=== PATIENT | male | born 1940 | race Caucasian/White ===

== ENCOUNTER 2018-04-10 16:44 | Inpatient (IN) | payer MEDICARE ==
[~2018-04-10] VITALS: Ht 167.6 cm; Wt 70.1 kg
--- NOTE | 2018-04-10 17:14 | EKG ---
[facility] [address] [place] [address] Test Date: 2018-04-10 Test Time: 16:47:41 Pat Name: JS HOLMAN Department: Room: Gender: M Line Fisher: : 1940 Requested By: ABDULAZIZ LOPEZ Order Number: [id number] Reading MD: Measurements Intervals [place] Rate: 86 P: 52 [place]: 176 QRS: -8 QRSD: 94 T: 62 QT: 332 QTc: 400 Interpretive Statements SINUS RHYTHM LEFTWARD AXIS QRS(T) CONTOUR ABNORMALITY CONSISTENT WITH INFERIOR INFARCT PROBABLY OLD ABNORMAL ECG RI6.01 No previous ECG available for comparison
[2018-04-10] MEDS ORDERED: NITROGLYCERIN SUBLINGUAL 0.4 MG BOTTLE OF 25. SL PRN (17:15)
--- NOTE | 2018-04-10 18:25 | PHYS DOC ---
Past Medical History Past Medical History: High Cholesterol, Hypertension Past Surgical History: Cholecystectomy, Other Additional Past Surgical Histo: AAA repair Alcohol Use: None Drug Use: None Adult General Chief Complaint Chief Complaint: CHEST PAIN HPI HPI 77-year-old male presents to ER via EMS for complaints of sudden onset of midsternal chest pain at 4:30 PM. Patient reports he was eating fried chicken and potato salad when pain started. Patient states the pain was 10 out of 10. EMS administered aspirin 324 mg and 1 nitroglycerin sublingual. Patient reports his pain has improved and currently rates at 2 out of 10. Patient denies any radiation of pain into his extremities, back, or neck. Patient denies any nausea or vomiting, shortness of air, or abd pain. Review of Systems Review of Systems Constitutional: Denies fever or chills [] Eyes: Denies change in visual acuity, redness, or eye pain [] HENT: Denies nasal congestion or sore throat [] Respiratory: Denies cough or shortness of breath [] Cardiovascular: Reports mid sternal chest pain without radiation GI: Denies abdominal pain, nausea, vomiting, bloody stools or diarrhea [] : Denies dysuria or hematuria [] Musculoskeletal: Denies back pain or joint pain [] Integument: Denies rash or skin lesions [] Neurologic: Denies headache, focal weakness or sensory changes [] Psych: Reports anxiety All other systems were reviewed and found to be within normal limits, except as documented in this note. Current Medications Current Medications Current Medications Medications (Trade) Dose Ordered Sig/Mariel Start Time Stop Time Status Last Admin Dose Admin Nitroglycerin (Nitrostat) 0.4 mg PRN Q5MIN PRN 04/10/18 17:15 Allergies Allergies Allergies Coded Allergies Type Severity Reaction Last Updated Verified No Known Drug Allergies 01/01/15 No Physical Exam Physical Exam Constitutional: Well developed, well nourished, mild distress on initial exam patient anxious and tearful, non-toxic appearance. [] HENT: Normocephalic, atraumatic, bilateral external ears normal, oropharynx moist, no oral exudates, nose normal. [] Eyes: PERRLA, EOMI, conjunctiva normal, no discharge. [] Neck: Normal range of motion, no tenderness, supple, no stridor. [] Cardiovascular: Heart rate regular rhythm, no murmur [] Lungs & Thorax: Bilateral breath sounds clear to auscultation. Respirations equal and nonlabored. No chest wall tenderness Abdomen: Bowel sounds normal, soft-no distention or rigidity, no tenderness, no masses, no pulsatile masses. [] Skin: Warm, dry, no erythema, no rash. [] Back: No tenderness, no CVA tenderness. [] Extremities: No tenderness, no cyanosis, no clubbing, ROM intact, no edema. [] Neurologic: Alert and oriented X 3, normal motor function, normal sensory function, no focal deficits noted. [] Psychologic: Affect normal, judgement normal, mood normal. [] Current Patient Data Vital Signs Vital Signs Date Time Temp Pulse Resp B/P (MAP) Pulse Ox O2 Delivery O2 Flow Rate FiO2 04/10/18 19:00 54 23 119/71 (87) 95 Room Air 04/10/18 16:58 98.6 98.6 Lab Values Laboratory Tests Test 04/10/18 18:35 White Blood Count 7.2 x10^3/uL (4.0-11.0) Red Blood Count 4.32 x10^6/uL (4.30-5.70) Hemoglobin 14.0 g/dL (13.0-17.5) Hematocrit 40.5 % (39.0-53.0) Mean Corpuscular Volume 94 fL (79-100) Mean Corpuscular Hemoglobin 33 pg (25-35) Mean Corpuscular Hemoglobin Concent 35 g/dL (31-37) Red Cell Distribution Width 14.5 % (11.5-14.5) Platelet Count 287 x10^3/uL (140-400) Neutrophils (%) (Auto) 54 % (31-73) Lymphocytes (%) (Auto) 28 % (24-48) Monocytes (%) (Auto) 11 % (0-9) H Eosinophils (%) (Auto) 8 % (0-3) H Basophils (%) (Auto) 0 % (0-3) Neutrophils # (Auto) 3.9 x10^3uL (1.8-7.7) Lymphocytes # (Auto) 2.0 x10^3/uL (1.0-4.8) Monocytes # (Auto) 0.8 x10^3/uL (0.0-1.1) Eosinophils # (Auto) 0.5 x10^3/uL (0.0-0.7) Basophils # (Auto) 0.0 x10^3/uL (0.0-0.2) Sodium Level 138 mmol/L (136-145) Potassium Level 4.3 mmol/L (3.5-5.1) Chloride Level 103 mmol/L (98-107) Carbon Dioxide Level 24 mmol/L (21-32) Anion Gap 11 (6-14) Blood Urea Nitrogen 21 mg/dL (8-26) Creatinine 1.3 mg/dL (0.7-1.3) Estimated GFR (Cockcroft-Gault) 53.7 BUN/Creatinine Ratio 16 (6-20) Glucose Level 101 mg/dL (70-99) H Calcium Level 9.5 mg/dL (8.5-10.1) Magnesium Level 1.9 mg/dL (1.8-2.4) Total Bilirubin 0.2 mg/dL (0.2-1.0) Aspartate Amino Transferase (AST) 14 U/L (15-37) L Alanine Aminotransferase (ALT) 14 U/L (16-63) L Alkaline Phosphatase 115 U/L (46-116) Troponin I Quantitative < 0.017 ng/mL (0.000-0.055) RY-Gkv-Y-Type Natriuretic Peptide 106 pg/mL (0-449) Total Protein 7.8 g/dL (6.4-8.2) Albumin 3.4 g/dL (3.4-5.0) Albumin/Globulin Ratio 0.8 (1.0-1.7) L Lipase 532 U/L (73-393) H Laboratory Tests 04/10/18 18:35 Laboratory Tests 04/10/18 18:35 EKG EKG EKG obtained 04/10/18 at [address] Shirley Sinus rhythm Leftward axis Rate 86 No STEMI Radiology/Procedures Radiology/Procedures [] Course & Med Decision Making Course & Med Decision Making Pertinent Labs and Imaging studies reviewed. (See chart for details) 1810: RN reported when she went to admin. nitro pt had no CP so nitro not given. On re-evaluation pt reports his CP has subsided he is denying any complaints. Test results were discussed along EKG with no acute ST elevation/STEMI and troponin was <0.017. Discussed admit plans to complete serial cardiac enzymes to further r/o ACS. Pt had received aspirin 324mg BELL MAKER along with 1 nitro SL. Pt has remained stable while in ER. Pt and his are both agreeable with admit plan. Will speak with hospitalist and discuss pt's case. 1939: Spoke with Dr. Garcia, hospitalist and discussed pt's case/admit plan. Discussed pt's case with Dr. Shirley. Pt's MACE score 5. Dragon Disclaimer Dragon Disclaimer This electronic medical record was generated, in whole or in part, using a voice recognition dictation system. Departure Departure Impression: Primary Impression: Chest pain Disposition: ADMITTED INPATIENT Admitting Physician: Xie. Borjas Condition: STABLE Referrals: NESTOR SALAMANCA (PCP) ABDULAZIZ LOPEZ APRN Apr 10, 2018 18:25
[2018-04-10 18:47] LABS: BASO % 0 % (0-3); EOS # 0.5 x10^3/uL (0.0-0.7); EOS % 8 % (0-3); HEMATOCRIT 40.5 % (39.0-53.0); LYMPH % 28 % (24-48); MEAN CORPUSCULAR HEMOGLOBIN 33 pg (25-35); MEAN CORPUSCULAR HGB CONC 35 g/dL (31-37); MEAN CORPUSCULAR VOLUME 94 fL (79-100); MONO # 0.8 x10^3/uL (0.0-1.1); MONO % 11 % (0-9); NEUT # 3.9 x10^3uL (1.8-7.7); NEUT % 54 % (31-73); PLATELET COUNT 287 x10^3/uL (140-400); RED BLOOD COUNT 4.32 x10^6/uL (4.30-5.70); RED CELL DISTRIBUTION WIDTH 14.5 % (11.5-14.5); WHITE BLOOD COUNT 7.2 x10^3/uL (4.0-11.0)
[2018-04-10 19:03] LABS: CALCIUM 9.5 mg/dL (8.5-10.1); CREATININE 1.3 mg/dL (0.7-1.3); GFR 53.7; POTASSIUM 4.3 mmol/L (3.5-5.1)
[2018-04-10 19:09] LABS: ALBUMIN 3.4 g/dL (3.4-5.0); ALBUMIN/GLOBULIN RATIO 0.8 (1.0-1.7); MAGNESIUM 1.9 mg/dL (1.8-2.4); TOTAL BILIRUBIN 0.2 mg/dL (0.2-1.0); TOTAL PROTEIN 7.8 g/dL (6.4-8.2)
[2018-04-10] MEDS ORDERED: GEMF600T8 PO (19:37)
[2018-04-10] MEDS ORDERED: METF500T16 PO (19:38)
[2018-04-10] MEDS ORDERED: LISI10TA2 PO (19:40)
[2018-04-10 21:15] VITALS: BP 152/77
[2018-04-10 21:30] VITALS: BP 133/59
[2018-04-10 21:45] VITALS: BP 121/61
[2018-04-10 22:00] VITALS: BP 136/64
--- NOTE | 2018-04-10 22:17 | RAD ---
Single view chest dated 04/10/2018. No comparison available. CLINICAL INDICATION: Asymmetric chest pain. Shortness of breath. FINDINGS: Single upright portable exam performed. Heart and mediastinal contours are within normal limits. Lungs are clear without focal consolidation. Vascular interstitium within normal limits. No pleural effusion or pneumothorax. IMPRESSION: No acute radiographic abnormality. Electronically signed by: Craig Askew MD (04/10/2018 10:13 PM) [facility]
[2018-04-11 00:01] VITALS: BP 136/74
[2018-04-11 02:06] LABS: BASO # 0.1 x10^3/uL (0.0-0.2); BASO % 2 % (0-3); EOS # 0.6 x10^3/uL (0.0-0.7); EOS % 9 % (0-3); HEMATOCRIT 39.2 % (39.0-53.0); HEMOGLOBIN 13.5 g/dL (13.0-17.5); LYMPH # 2.5 x10^3/uL (1.0-4.8); LYMPH % 39 % (24-48); MEAN CORPUSCULAR HEMOGLOBIN 33 pg (25-35); MEAN CORPUSCULAR HGB CONC 35 g/dL (31-37); MEAN CORPUSCULAR VOLUME 95 fL (79-100); MONO # 0.7 x10^3/uL (0.0-1.1); MONO % 11 % (0-9); NEUT # 2.5 x10^3uL (1.8-7.7); NEUT % 39 % (31-73); PLATELET COUNT 264 x10^3/uL (140-400); RED BLOOD COUNT 4.11 x10^6/uL (4.30-5.70); RED CELL DISTRIBUTION WIDTH 14.2 % (11.5-14.5); WHITE BLOOD COUNT 6.4 x10^3/uL (4.0-11.0)
[2018-04-11 02:25] LABS: CALCIUM 9.4 mg/dL (8.5-10.1); CREATININE 1.3 mg/dL (0.7-1.3); GFR 53.7; POTASSIUM 4.4 mmol/L (3.5-5.1)
[2018-04-11 02:29] LABS: CHOLESTEROL/HDL RATIO 7.7
[2018-04-11 04:00] VITALS: BP 138/63
[2018-04-11 08:00] VITALS: BP 162/92
--- NOTE | 2018-04-11 10:33 | PDOC2 ---
DAPHNE VIDAL TIN [employer] FEEDER 04/11/18 1033: CARDIAC CONSULT DATE OF CONSULT Date of Consult DATE: 04/11/18 TIME: 10:06 REASON FOR CONSULT Reason for Consult: Chest pain REFERRING PHYSICIAN Referring Physician: Radha SOURCE Source: Chart review, Patient HISTORY OF PRESENT ILLNESS HISTORY OF PRESENT ILLNESS This is a pleasant 77 yo male admitted for complains of chest pain. This occurred while he was eating yesterday morning. This felt like he was getting punched in his chest. This is nonradiating. NO associated nausea but he did feel like he could not take a deep breath with this pain. No palpitations, falls or any recent injury. From his recollection he was never told of any heart disease in the past or VTE. He did however had an aneurysm extending from his chest to his abdomen which was openly surgically repaired 5 yrs ago. Denies any abdominal pain. No exertional CP or dyspnea. He does not follow up with cardiology and has not followed up with any vascular surgery in a while. Denies any dizziness or passing out. PAST MEDICAL HISTORY Cardiovascular: HTN, Hyperlipidemia Pulmonary: No pertinent hx CENTRAL NERVOUS SYSTEM: Other (No pertinent history) GI: GERD Hepatobiliary: No pertinent hx Psych: No pertinent hx Musculoskeletal: Osteoarthritis Rheumatologic: No pertinent hx Infectious disease: No pertinent hx ENT: Other (periodontal disease) Renal/: No pertinent hx Endocrine: Diabetes (?) Dermatology: No pertinent hx PAST SURGICAL HISTORY Past Surgical History: Appendectomy, Other (thoracic and abdominal aneurysm repair) FAMILY HISTORY Family History noncontributory to CV SOCIAL HISTORY Smoke: 1 pack per day ALCOHOL: none Drugs: None Lives: with Family ALLERGIES ALLERGIES: Coded Allergies: No Known Drug Allergies (Unverified , 01/01/15) ROS Review of System 14 point ROS evaluated with pertinent positives noted per HPI PHYSICAL EXAM General: Alert, Oriented X3, Cooperative, No acute distress HEENT: Atraumatic, Mucous membr. moist/pink Lungs: Clear to auscultation, Normal air movement Heart: Regular rate (SR no ectopies), Other (distnat heart sounds) Abdomen: Soft, No tenderness Extremities: No cyanosis, No edema Skin: No breakdown, No significant lesion Neuro: Normal speech, Sensation intact Psych/Mental Status: Mental status NL, Mood NL MUSCULOSKELETAL: Osteoarthritic changes both hands VITALS VITALS Vital Signs Date Time Temp Pulse Resp B/P (MAP) Pulse Ox O2 Delivery O2 Flow Rate FiO2 04/11/18 08:00 98.9 61 18 162/92 (115) 97 Room Air 98.9 LABS Lab: Laboratory Tests Test 04/10/18 18:35 04/10/18 23:15 04/11/18 01:50 White Blood Count 7.2 x10^3/uL (4.0-11.0) 6.4 x10^3/uL (4.0-11.0) Red Blood Count 4.32 x10^6/uL (4.30-5.70) 4.11 x10^6/uL (4.30-5.70) Hemoglobin 14.0 g/dL (13.0-17.5) 13.5 g/dL (13.0-17.5) Hematocrit 40.5 % (39.0-53.0) 39.2 % (39.0-53.0) Mean Corpuscular Volume 94 fL (79-100) 95 fL (79-100) Mean Corpuscular Hemoglobin 33 pg (25-35) 33 pg (25-35) Mean Corpuscular Hemoglobin Concent 35 g/dL (31-37) 35 g/dL (31-37) Red Cell Distribution Width 14.5 % (11.5-14.5) 14.2 % (11.5-14.5) Platelet Count 287 x10^3/uL (140-400) 264 x10^3/uL (140-400) Neutrophils (%) (Auto) 54 % (31-73) 39 % (31-73) Lymphocytes (%) (Auto) 28 % (24-48) 39 % (24-48) Monocytes (%) (Auto) 11 % (0-9) 11 % (0-9) Eosinophils (%) (Auto) 8 % (0-3) 9 % (0-3) Basophils (%) (Auto) 0 % (0-3) 2 % (0-3) Neutrophils # (Auto) 3.9 x10^3uL (1.8-7.7) 2.5 x10^3uL (1.8-7.7) Lymphocytes # (Auto) 2.0 x10^3/uL (1.0-4.8) 2.5 x10^3/uL (1.0-4.8) Monocytes # (Auto) 0.8 x10^3/uL (0.0-1.1) 0.7 x10^3/uL (0.0-1.1) Eosinophils # (Auto) 0.5 x10^3/uL (0.0-0.7) 0.6 x10^3/uL (0.0-0.7) Basophils # (Auto) 0.0 x10^3/uL (0.0-0.2) 0.1 x10^3/uL (0.0-0.2) Sodium Level 138 mmol/L (136-145) 140 mmol/L (136-145) Potassium Level 4.3 mmol/L (3.5-5.1) 4.4 mmol/L (3.5-5.1) Chloride Level 103 mmol/L (98-107) 103 mmol/L (98-107) Carbon Dioxide Level 24 mmol/L (21-32) 25 mmol/L (21-32) Anion Gap 11 (6-14) 12 (6-14) Blood Urea Nitrogen 21 mg/dL (8-26) 22 mg/dL (8-26) Creatinine 1.3 mg/dL (0.7-1.3) 1.3 mg/dL (0.7-1.3) Estimated GFR (Cockcroft-Gault) 53.7 53.7 BUN/Creatinine Ratio 16 (6-20) Glucose Level 101 mg/dL (70-99) 91 mg/dL (70-99) Calcium Level 9.5 mg/dL (8.5-10.1) 9.4 mg/dL (8.5-10.1) Magnesium Level 1.9 mg/dL (1.8-2.4) Total Bilirubin 0.2 mg/dL (0.2-1.0) Aspartate Amino Transf (AST/SGOT) 14 U/L (15-37) Alanine Aminotransferase (ALT/SGPT) 14 U/L (16-63) Alkaline Phosphatase 115 U/L (46-116) Troponin I Quantitative < 0.017 ng/mL (0.000-0.055) < 0.017 ng/mL (0.000-0.055) < 0.017 ng/mL (0.000-0.055) EN-Gqv-I-Type Natriuretic Peptide 106 pg/mL (0-449) Total Protein 7.8 g/dL (6.4-8.2) Albumin 3.4 g/dL (3.4-5.0) Albumin/Globulin Ratio 0.8 (1.0-1.7) Lipase 532 U/L (73-393) Triglycerides Level 163 mg/dL (0-150) Cholesterol Level 239 mg/dL (0-200) LDL Cholesterol, Calculated 175 mg/dL (0-100) VLDL Cholesterol, Calculated 33 mg/dL (0-40) Non-HDL Cholesterol Calculated 208 mg/dL (0-129) HDL Cholesterol 31 mg/dL (40-60) Cholesterol/HDL Ratio 7.7 ASSESSMENT/PLAN ASSESSMENT/PLAN 1. Atypical CP: doubt cardiac. Likely GI. 2. Elevated lipase: GI consulted 3. HX of thoracic/abdominal aneurysm with open repair: 5 yrs ago per per pt. 4. HTN: controlled 5. HLP: not controlled 6. Tobaccoism: 60 pk yr 7. Dysmetabolic syndrome vs DM2?: on home metformin 8. Asymptomatic SB: meand HR 60 with episodes in the 40-50s Recommendations 1. TTE and note aorta and baseline EF and WM. 2. Intensify statin, DC home gemfibrozil. Resume home lisinopril. ASA 3. Smoking cessation. 4. Further follow up imaging in regards to aneurysm per PCP 5. Given his risk factors he will need cardiology follow up as an outpt. DENISHA GALVIN MD 04/11/182038: CARDIAC CONSULT ASSESSMENT/PLAN ASSESSMENT/PLAN Patient seen and examined. Agree with CODING AND REIMBURSEMENT SPECIALIST's assessment and plan. CP with atypical features and most probably GI etiology MO ruled out 2D echo showed normal LVF without WMA Plan ischemic work up as outpatient Thank you for your consultation DAPHNE VIDAL APRN Apr 11, 2018 10:33 DENISHA GALVIN MD Apr 11, 2018 20:39
--- NOTE | 2018-04-11 11:18 | PDOC2 ---
GI CONSULT Reason For Consult: Elevated lipase HPI: HPI: Friendly 77 y/o male admitted through the ER last night. Reports right-sided chest "squeezing" while eating dinner (fried chicken, potato salad, and beets) last evening. Associated w/ SOA. Similar pain has occurred several times - always while eating. He didn't want to worry his so didn't mention it in the past. Labs noted lipase 537, GI asked to see for this reason. No abd imaging. Pain has resolved, he is tolerating PO and asking for more coffee. Per RN, possible discharge later today, cardiology consult pending. Denies reflux/heartburn, dysphagia, n/v, abd pain, diarrhea, constipation, hematochezia, melena, change in appetite, or weight loss. No previous EGD. Had a colonoscopy (reportedly normal) about 6-7 years ago. No GB, liver, or pancreas history. Smokes. Drank alcohol heavily until he got 55 years years ago - since then, thinks he's been drunk about 4 times and eventually stopped drinking completely. No NSAID use. PMH: PMH: HTN, HLD, DM, AAA repair FH: Family History: Cancer (father - unknown kind) Social History: Smoke: 1 pack per day ALCOHOL: none Drugs: None ROS: GEN: Denies fevers, chills, sweats HEENT: Denies blurred vision, sore throat CV: +chest pain RESP: +shortness of air GI: Per HPI : Denies hematuria, dysuria ENDO: Denies weight changes NEURO: Denies confusion, dizziness MSK: Denies weakness, joint pain/swelling SKIN: Denies jaundice, pruritus Vitals: Vitals: Vital Signs Date Time Temp Pulse Resp B/P (MAP) Pulse Ox O2 Delivery O2 Flow Rate FiO2 04/11/18 08:00 98.9 61 18 162/92 (115) 97 Room Air 98.9 Labs: Labs: Laboratory Tests Test 04/10/18 18:35 04/10/18 23:15 04/11/18 01:50 White Blood Count 7.2 x10^3/uL (4.0-11.0) 6.4 x10^3/uL (4.0-11.0) Red Blood Count 4.32 x10^6/uL (4.30-5.70) 4.11 x10^6/uL (4.30-5.70) Hemoglobin 14.0 g/dL (13.0-17.5) 13.5 g/dL (13.0-17.5) Hematocrit 40.5 % (39.0-53.0) 39.2 % (39.0-53.0) Mean Corpuscular Volume 94 fL (79-100) 95 fL (79-100) Mean Corpuscular Hemoglobin 33 pg (25-35) 33 pg (25-35) Mean Corpuscular Hemoglobin Concent 35 g/dL (31-37) 35 g/dL (31-37) Red Cell Distribution Width 14.5 % (11.5-14.5) 14.2 % (11.5-14.5) Platelet Count 287 x10^3/uL (140-400) 264 x10^3/uL (140-400) Neutrophils (%) (Auto) 54 % (31-73) 39 % (31-73) Lymphocytes (%) (Auto) 28 % (24-48) 39 % (24-48) Monocytes (%) (Auto) 11 % (0-9) 11 % (0-9) Eosinophils (%) (Auto) 8 % (0-3) 9 % (0-3) Basophils (%) (Auto) 0 % (0-3) 2 % (0-3) Neutrophils # (Auto) 3.9 x10^3uL (1.8-7.7) 2.5 x10^3uL (1.8-7.7) Lymphocytes # (Auto) 2.0 x10^3/uL (1.0-4.8) 2.5 x10^3/uL (1.0-4.8) Monocytes # (Auto) 0.8 x10^3/uL (0.0-1.1) 0.7 x10^3/uL (0.0-1.1) Eosinophils # (Auto) 0.5 x10^3/uL (0.0-0.7) 0.6 x10^3/uL (0.0-0.7) Basophils # (Auto) 0.0 x10^3/uL (0.0-0.2) 0.1 x10^3/uL (0.0-0.2) Sodium Level 138 mmol/L (136-145) 140 mmol/L (136-145) Potassium Level 4.3 mmol/L (3.5-5.1) 4.4 mmol/L (3.5-5.1) Chloride Level 103 mmol/L (98-107) 103 mmol/L (98-107) Carbon Dioxide Level 24 mmol/L (21-32) 25 mmol/L (21-32) Anion Gap 11 (6-14) 12 (6-14) Blood Urea Nitrogen 21 mg/dL (8-26) 22 mg/dL (8-26) Creatinine 1.3 mg/dL (0.7-1.3) 1.3 mg/dL (0.7-1.3) Estimated GFR (Cockcroft-Gault) 53.7 53.7 BUN/Creatinine Ratio 16 (6-20) Glucose Level 101 mg/dL (70-99) 91 mg/dL (70-99) Calcium Level 9.5 mg/dL (8.5-10.1) 9.4 mg/dL (8.5-10.1) Magnesium Level 1.9 mg/dL (1.8-2.4) Total Bilirubin 0.2 mg/dL (0.2-1.0) Aspartate Amino Transf (AST/SGOT) 14 U/L (15-37) Alanine Aminotransferase (ALT/SGPT) 14 U/L (16-63) Alkaline Phosphatase 115 U/L (46-116) Troponin I Quantitative < 0.017 ng/mL (0.000-0.055) < 0.017 ng/mL (0.000-0.055) < 0.017 ng/mL (0.000-0.055) YS-Qyv-T-Type Natriuretic Peptide 106 pg/mL (0-449) Total Protein 7.8 g/dL (6.4-8.2) Albumin 3.4 g/dL (3.4-5.0) Albumin/Globulin Ratio 0.8 (1.0-1.7) Lipase 532 U/L (73-393) Triglycerides Level 163 mg/dL (0-150) Cholesterol Level 239 mg/dL (0-200) LDL Cholesterol, Calculated 175 mg/dL (0-100) VLDL Cholesterol, Calculated 33 mg/dL (0-40) Non-HDL Cholesterol Calculated 208 mg/dL (0-129) HDL Cholesterol 31 mg/dL (40-60) Cholesterol/HDL Ratio 7.7 Allergies: Coded Allergies: No Known Drug Allergies (Unverified , 01/01/15) Imaging: Imaging: CXR IMPRESSION: No acute radiographic abnormality. PE: GEN: NAD, up to chair HEENT: Atraumatic, PERRL, poor dentition LUNGS: CTAB HEART: RRR ABD: NABS, S/ND/NT EXTREMITY: No edema SKIN: No rashes, no jaundice NEURO/PSYCH: A & O 3 A/P: A/P: Recurrent right-sided chest pain - "squeezing," occurs while eating, associated w/ SOA Mildly elevated lipase CRC screen - reports colonoscopy 6-7 years ago -- Cardiology consult pending. Will review w/ Dr. Delarosa re: need for further evaluation as inpt or outpt - ? US ?CT ?EGD STELLA YIP Apr 11, 2018 11:18
--- NOTE | 2018-04-11 11:19 | HP ---
ADMIT DATE: 04/10/2018 CHIEF COMPLAINT: Chest pain. HISTORY OF PRESENT ILLNESS: The patient is a pleasant 77-year-old male who has a history of AAA and thoracic aneurysm repair. He presented to the ER with chest pain last night. It was rated as 7/10. He had associated nausea. He was eating fried chicken and potato salad when it started. It got to as high as 10/10. He took an aspirin that did not seem to help. He took a nitro that helped a little. He describes it as agonizing, moving made it worse. I discussed the case with ER physician. We admitted the patient. We are consulting Cardiology. We are also checking his aneurysm repair. PAST MEDICAL HISTORY: AAA repair, thoracic aneurysm repair, hypertension, hyperlipidemia, cholecystectomy. Diabetes. ALLERGIES: None. FAMILY HISTORY: Hypertension. SOCIAL HISTORY: Does not drink, smoke or take drugs. He is retired. MEDICATIONS: Reviewed. He is on 3 including gemfibrozil, lisinopril, metformin. REVIEW OF SYSTEMS: GENERAL: No history of weight change, weakness or fevers. SKIN: No bruising, hair changes or rashes. EYES: No blurred, double or loss of vision. NOSE AND THROAT: No history of nosebleeds, hoarseness or sore throat. HEART: He complains of chest pain, although it is improving.. LUNGS: Denies cough, hemoptysis, wheezing or shortness of breath. GASTROINTESTINAL: Denies changes in appetite, nausea, vomiting, diarrhea or constipation. GENITOURINARY: No history of frequency, urgency, hesitancy or nocturia. NEUROLOGIC: Denies history of numbness, tingling, tremor or weakness. PSYCHIATRIC: No history of panic, anxiety or depression. ENDOCRINE: No history of heat or cold intolerance, polyuria or polydipsia. EXTREMITIES: Denies muscle weakness, joint pain, pain on walking or stiffness. PHYSICAL EXAMINATION:. VITAL SIGNS: Temperature afebrile, pulse 55, respirations 18, blood pressure 138/63. GENERAL: He is alert, cooperative, up in the chair in the ICU. HEART: Normal S1, S2. LUNGS: Clear to auscultation. ABDOMEN: Soft, positive bowel sounds, no organomegaly. EXTREMITIES: Trace edema. Pedal pulses are intact. ENDOCRINE: No thyromegaly. LYMPHATICS: No cervical nodes. HEMATOPOIETIC: No bruising. GENITOURINARY: Normal structure of the penis and scrotum. PSYCHIATRIC: He is stable. NEUROLOGIC: Moving all extremities. NECK: No JVD. LABORATORY DATA: White count 7, hemoglobin 14, platelets 287. Electrolytes are normal. Troponin is 0. Triglycerides are high at 163. Chest x-ray normal. ASSESSMENT AND PLAN: Chest pain, rule out coronary artery disease. Given the patient's history of abdominal aortic aneurysm, we need to check that. I discussed with Cardiology. We are going to do some extra imaging. Continue his home meds, cardiac monitoring, serial enzymes, serial EKGs, p.r.n. Zofran, p.r.n. morphine. PROGNOSIS: Guarded. IVAN CARPENTER DO DR: TRACI/violet JOB#: [id number] / [id number]
[2018-04-11 12:00] VITALS: BP 161/84
[2018-04-11] MEDS: LISINOPRIL 10 MG TABLET PO SCH (12:38)
--- NOTE | 2018-04-11 14:31 | CARD ---
MR#: [id number] Date of Study: 04/11/2018 Ordering Physician: DAPHNE VIDAL, Referring Physician: CECILIA LASSITER Tech: Greer Killian RDCS APPROVED REPORT EXAM: Two-dimensional and M-mode echocardiogram with Doppler and color Doppler. Other Information Quality : AverageHR: 60bpm Rhythm : NSR INDICATION Chest Pain 2D DIMENSIONS RVDd3.0 (2.9-3.5cm)Left Atrium(2D)3.5 (1.6-4.0cm) IVSd1.2 (0.7-1.1cm)Aortic Root(2D)3.3 (2.0-3.7cm) LVDd4.3 (3.9-5.9cm)LVOT Diameter2.1 (1.8-2.4cm) PWd0.8 (0.7-1.1cm)LVDs3.1 (2.5-4.0cm) FS (%) 27.7 %SV44.9 ml LVEF(%)54.1 (>50%) Aortic Valve AoV Peak Cole.177.6cm/sAoV VTI38.5cm AO Peak GR.12.6mmHgLVOT VTI 22.92cm AO Mean GR.7mmHgAVA (VMAX)1.98cm2 BEATRIZ (VTI)2.00cm2 Mitral Valve MV E Uatjqhrg72.5cm/sMV DECEL TOCN294ki MV A Eoxejjpa71.7cm/sE/A Ratio0.8 MV A [id number] TDI Lateral E' P. V8.37cm/sMedial E' P. V9.07cm/s E/Lateral E'7.2E/Medial E'6.7 Tricuspid Valve TR P. Dcgjbwht345iv/sRAP [id number] TR Peak Gr.90ydNjLTQT74vjHu LEFT VENTRICLE The left ventricle is normal size. Proximal septal thickening is noted. The Ejection Fraction is 55%. The left ventricular systolic function is normal and the ejection fraction is within normal range. T here is normal LV segmental wall motion. Transmitral Doppler flow pattern is Grade I-abnormal relaxat ion pattern. RIGHT VENTRICLE The right ventricle is normal size. There is normal right ventricular wall thickness. The right ventr icular systolic function is normal. ATRIA The left atrium size is normal. The right atrium size is normal. The interatrial septum is intact wit h no evidence for an atrial septal defect or patent foramen ovale as noted on 2-D or Doppler imaging. AORTIC VALVE The aortic valve is moderately calcified with restricted leaflet motion. The aortic valve is trileafl et. Doppler and Color Flow revealed no significant aortic regurgitation. There is no significant aort ic valvular stenosis. MITRAL VALVE The mitral valve is normal in structure and function. There is no evidence of mitral valve prolapse. There is no mitral valve stenosis. Doppler and Color Flow revealed no mitral valve regurgitation note d. TRICUSPID VALVE The tricuspid valve is normal in structure and function. Doppler and Color Flow revealed trace tricus pid regurgitation. The PA pressure was estimated at 24 mmHg. There is no tricuspid valve prolapse or vegetation. There is no tricuspid valve stenosis. PULMONIC VALVE Pulmonic valve not well visualized. GREAT VESSELS The aortic root is normal in size. The ascending aorta is normal in size. The IVC is normal in size a nd collapses >50% with inspiration. PERICARDIAL EFFUSION There is no evidence of significant pericardial effusion. Critical Notification Critical Value: No <Conclusion> The Ejection Fraction is 55%. The left ventricular systolic function is normal and the ejection fract ion is within normal range. There is normal LV segmental wall motion. Signed by : Arnaldo Azul, Electronically Approved : 04/11/2018 14:29:55
[2018-04-11 16:00] VITALS: BP 157/80
[2018-04-11 20:00] VITALS: BP 121/58
[2018-04-11] MEDS: ATORVASTATIN CALCIUM 40 MG TABLET. PO SCH (20:39)
[2018-04-12] VITALS (10 sets, daily range): BP systolic 102–143; BP diastolic 50–81
[2018-04-12 05:41] LABS: BASO # 0.1 x10^3/uL (0.0-0.2); BASO % 1 % (0-3); EOS # 0.7 x10^3/uL (0.0-0.7); EOS % 9 % (0-3); LYMPH # 1.9 x10^3/uL (1.0-4.8); LYMPH % 26 % (24-48); MEAN CORPUSCULAR HEMOGLOBIN 32 pg (25-35); MEAN CORPUSCULAR HGB CONC 34 g/dL (31-37); MEAN CORPUSCULAR VOLUME 94 fL (79-100); MONO # 0.7 x10^3/uL (0.0-1.1); MONO % 10 % (0-9); NEUT # 3.9 x10^3uL (1.8-7.7); NEUT % 54 % (31-73); PLATELET COUNT 290 x10^3/uL (140-400); RED BLOOD COUNT 4.35 x10^6/uL (4.30-5.70); RED CELL DISTRIBUTION WIDTH 14.4 % (11.5-14.5); WHITE BLOOD COUNT 7.2 x10^3/uL (4.0-11.0)
[2018-04-12 06:04] LABS: CALCIUM 9.3 mg/dL (8.5-10.1); CREATININE 1.2 mg/dL (0.7-1.3); GFR 58.9; POTASSIUM 4.1 mmol/L (3.5-5.1)
[2018-04-12] MEDS ORDERED: LIDOCAINE 1% PF 2 ML VIAL. ID PRN ×2 (07:00→08:00)
[2018-04-12] MEDS ORDERED: PROCHLORPERAZINE 10 MG/2 ML VIAL. IV PRN (07:00)
[2018-04-12] MEDS ORDERED: IV RINGERS,LACTATED 1000ML 1,000 ML IV SCH (07:00)
[2018-04-12] MEDS ORDERED: ONDANSETRON PF 4 MG/2 ML VIAL. IV PRN (07:00)
[2018-04-12] MEDS ORDERED: fentaNYL PF VIAL 100 MCG/2 ML VIAL IV PRN ×4 (07:00→08:00)
[2018-04-12] MEDS ORDERED: MORPHINE SULFATE 2 MG/ML VIAL. IV PRN (07:00)
[2018-04-12] MEDS ORDERED: HYDROmorphone 2 MG/ML VIAL IV PRN (07:00)
[2018-04-12] MEDS: IV RINGERS,LACTATED 1000ML 1,000 ML IV SCH ×2 (07:55→15:55)
[2018-04-12] MEDS: ASPIRIN ENTERIC COATED 81 MG TABLET.DR. PO SCH (08:00)
[2018-04-12] MEDS ORDERED: MIDAZOLAM HCL/PF 2 MG/2 ML VIAL. IV PRN (08:00)
[2018-04-12] MEDS ORDERED: PROPOFOL 20 ML IV ONE (09:12)
--- NOTE | 2018-04-12 10:07 | PDOC4 ---
PROCEDURE Procedure EGD/biopsies Indication: dyspepsia/NCCP Meds: per anesthesia Findings: E--Friable tumor anterior wall from 30-35cm c/w malignancy. Some circumferential involvement at GEJ. Able to pass with mild resistance. Biopsies done. G--Normal D--Nodular duodenitis, bulb Agustina.well. 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 Duodenitis REC: Await biopsies. CT c/a/p Continue PPI. Soft diet. H/O consult Thanks. ALEX TAYLOR MD Apr 12, 2018 10:07
[2018-04-12] MEDS ORDERED: CONTRAST GIVEN. MC PRN ×2 (10:45→12:15)
[2018-04-12] MEDS ORDERED: IOHEXOL 300 MG/ML 100ML VIAL. IV ONE ×2 (10:45→12:00)
[2018-04-12] MEDS ORDERED: IOHEXOL 240 MG/ML 50ML VIAL. PO ONE ×2 (10:45→12:00)
--- NOTE | 2018-04-12 11:52 | PDOC ---
DAPHNE VIDAL [employer] 04/12/18 1152: CARDIO Progress Notes Date and Time Date of Service 04/12/2018 Time of Evaluation 1150 Subjective Subjective: No Chest Pain, No shortness of breath, No Palpitations Vitals Vitals Vital Signs Date Time Temp Pulse Resp B/P (MAP) Pulse Ox O2 Delivery O2 Flow Rate FiO2 04/12/18 10:16 84 20 119/64 93 Nasal Cannula 2 04/12/18 10:02 97.6 97.6 Weight Weight [ ] Input and Output Intake and Output Intake and Output 04/12/18 07:00 Intake Total 800 ml Output Total 400 ml Balance 400 ml Intake Oral 800 ml Output Urine Total 400 ml # Voids 6 # Bowel Movements 1 Laboratory Labs Laboratory Tests Test 04/11/18 12:28 04/11/18 17:59 04/12/18 05:10 Glucose (Fingerstick) 155 mg/dL (70-99) 98 mg/dL (70-99) White Blood Count 7.2 x10^3/uL (4.0-11.0) Red Blood Count 4.35 x10^6/uL (4.30-5.70) Hemoglobin 14.0 g/dL (13.0-17.5) Hematocrit 41.0 % (39.0-53.0) Mean Corpuscular Volume 94 fL (79-100) Mean Corpuscular Hemoglobin 32 pg (25-35) Mean Corpuscular Hemoglobin Concent 34 g/dL (31-37) Red Cell Distribution Width 14.4 % (11.5-14.5) Platelet Count 290 x10^3/uL (140-400) Neutrophils (%) (Auto) 54 % (31-73) Lymphocytes (%) (Auto) 26 % (24-48) Monocytes (%) (Auto) 10 % (0-9) Eosinophils (%) (Auto) 9 % (0-3) Basophils (%) (Auto) 1 % (0-3) Neutrophils # (Auto) 3.9 x10^3uL (1.8-7.7) Lymphocytes # (Auto) 1.9 x10^3/uL (1.0-4.8) Monocytes # (Auto) 0.7 x10^3/uL (0.0-1.1) Eosinophils # (Auto) 0.7 x10^3/uL (0.0-0.7) Basophils # (Auto) 0.1 x10^3/uL (0.0-0.2) Sodium Level 138 mmol/L (136-145) Potassium Level 4.1 mmol/L (3.5-5.1) Chloride Level 104 mmol/L (98-107) Carbon Dioxide Level 26 mmol/L (21-32) Anion Gap 8 (6-14) Blood Urea Nitrogen 21 mg/dL (8-26) Creatinine 1.2 mg/dL (0.7-1.3) Estimated GFR (Cockcroft-Gault) 58.9 Glucose Level 104 mg/dL (70-99) Calcium Level 9.3 mg/dL (8.5-10.1) Physical Exam HEENT: Neck Supple W Full Motion Chest: Symmetric LUNGS: Clear to Auscultation Heart: S1S2, RRR (SR) Abdomen: Soft N/T Extremities: No Calf Tenderness Neurology: alert, oriented, follow commands Assessment Assessment 1. Atypical CP: doubt cardiac. Likely GI. 2. Esophageal mass per EGD with duodenitis 3. HX of thoracic/abdominal aneurysm with open repair: 5 yrs ago per per pt. Aortic root and ascending aorta nml in size 4. HTN: controlled 5. HLP: not controlled 6. Tobaccoism: 60 pk yr 7. Dysmetabolic syndrome vs DM2?: on home metformin 8. Asymptomatic SB: mean HR 60 with episodes in the 40-50s. EF and WM nml Recommendations 1. Statin, lisinopril. No AV zulema blocking agents for now. May hold ASA. 2. Smoking cessation. 3. Given his risk factors he will need cardiology follow up as an outpt and will consider for outpt stress test. DENISHA GALVIN MD 04/13/18 0826: CARDIO Progress Notes Assessment Assessment Patient seen and examined 04/12/18 (late entry). Agree with CONSUMER AFFAIRS SPECIALIST's assessment and plan. Chest pain with atypical features and most probably GI etiology. Myocardial infarction has been ruled out. 2-D echo showed normal LV function without any wall motion abnormalities. Plan for ischemic evaluation as an outpatient. DAPHNE VIDAL APRN Apr 12, 2018 11:52 DENISHA GALVIN MD Apr 13, 2018 08:26
--- NOTE | 2018-04-12 13:18 | PDOC ---
PROGRESS NOTES Chief Complaint Chief Complaint Chest pain History of Present Illness History of Present Illness Pt was seen in ICU today accompanied by and daughter. He is sitting up in chair, in good spirits and wants to go home. No current complaints. Pt reports no recent weight loss or difficulty with swallowing but did admit to pain with swallowing. 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 Heme/Onc consulted to discuss next steps Pt has hx AAA with thoracic aneurysm- cardio following. Follwed by Cardio, GI, Hem/onc Vitals Vitals Vital Signs Date Time Temp Pulse Resp B/P (MAP) Pulse Ox O2 Delivery O2 Flow Rate FiO2 04/12/18 10:16 84 20 119/64 93 Nasal Cannula 2 04/12/18 10:02 97.6 97.6 Physical Exam General: Alert, Oriented X3, Cooperative, No acute distress Heart: Regular rate (SR), Other (distnat heart sounds) Lungs: Clear, Other (no wheezes appreciated on ascultation) Abdomen: Soft, No tenderness Extremities: No cyanosis, No edema Skin: No breakdown, No significant lesion Labs LABS Laboratory Tests Test 04/11/18 17:59 04/12/18 05:10 Glucose (Fingerstick) 98 mg/dL (70-99) White Blood Count 7.2 x10^3/uL (4.0-11.0) Red Blood Count 4.35 x10^6/uL (4.30-5.70) Hemoglobin 14.0 g/dL (13.0-17.5) Hematocrit 41.0 % (39.0-53.0) Mean Corpuscular Volume 94 fL (79-100) Mean Corpuscular Hemoglobin 32 pg (25-35) Mean Corpuscular Hemoglobin Concent 34 g/dL (31-37) Red Cell Distribution Width 14.4 % (11.5-14.5) Platelet Count 290 x10^3/uL (140-400) Neutrophils (%) (Auto) 54 % (31-73) Lymphocytes (%) (Auto) 26 % (24-48) Monocytes (%) (Auto) 10 % (0-9) Eosinophils (%) (Auto) 9 % (0-3) Basophils (%) (Auto) 1 % (0-3) Neutrophils # (Auto) 3.9 x10^3uL (1.8-7.7) Lymphocytes # (Auto) 1.9 x10^3/uL (1.0-4.8) Monocytes # (Auto) 0.7 x10^3/uL (0.0-1.1) Eosinophils # (Auto) 0.7 x10^3/uL (0.0-0.7) Basophils # (Auto) 0.1 x10^3/uL (0.0-0.2) Sodium Level 138 mmol/L (136-145) Potassium Level 4.1 mmol/L (3.5-5.1) Chloride Level 104 mmol/L (98-107) Carbon Dioxide Level 26 mmol/L (21-32) Anion Gap 8 (6-14) Blood Urea Nitrogen 21 mg/dL (8-26) Creatinine 1.2 mg/dL (0.7-1.3) Estimated GFR (Cockcroft-Gault) 58.9 Glucose Level 104 mg/dL (70-99) Calcium Level 9.3 mg/dL (8.5-10.1) Review of Systems Review of Systems General: Denies fever, fatigue, chills, wt loss Cardio: Denies chest pain, palpitations Pulm: Denies soa, cough Assessment and Plan Assessmemt and Plan Assessment Chest pain AAA with thoracic aneurysm-known GERD Esophageal mass- probable adenocarcinoma? Plan ICU monitoring CBC BMP O2 supplementation PPI soft diet Await results of esophageal mass bx VTE prophylaxis Appreciate Cardiology input Appreciate GI input Appreciate Heme/Onc input PT/OT Home meds Comment Review of Relevant I have reviewed the following items erica (where applicable) has been applied. Labs Laboratory Tests Test 04/10/18 18:35 04/10/18 21:20 04/10/18 23:15 04/11/18 01:50 White Blood Count 7.2 x10^3/uL (4.0-11.0) 6.4 x10^3/uL (4.0-11.0) Red Blood Count 4.32 x10^6/uL (4.30-5.70) 4.11 x10^6/uL (4.30-5.70) Hemoglobin 14.0 g/dL (13.0-17.5) 13.5 g/dL (13.0-17.5) Hematocrit 40.5 % (39.0-53.0) 39.2 % (39.0-53.0) Mean Corpuscular Volume 94 fL (79-100) 95 fL (79-100) Mean Corpuscular Hemoglobin 33 pg (25-35) 33 pg (25-35) Mean Corpuscular Hemoglobin Concent 35 g/dL (31-37) 35 g/dL (31-37) Red Cell Distribution Width 14.5 % (11.5-14.5) 14.2 % (11.5-14.5) Platelet Count 287 x10^3/uL (140-400) 264 x10^3/uL (140-400) Neutrophils (%) (Auto) 54 % (31-73) 39 % (31-73) Lymphocytes (%) (Auto) 28 % (24-48) 39 % (24-48) Monocytes (%) (Auto) 11 % (0-9) 11 % (0-9) Eosinophils (%) (Auto) 8 % (0-3) 9 % (0-3) Basophils (%) (Auto) 0 % (0-3) 2 % (0-3) Neutrophils # (Auto) 3.9 x10^3uL (1.8-7.7) 2.5 x10^3uL (1.8-7.7) Lymphocytes # (Auto) 2.0 x10^3/uL (1.0-4.8) 2.5 x10^3/uL (1.0-4.8) Monocytes # (Auto) 0.8 x10^3/uL (0.0-1.1) 0.7 x10^3/uL (0.0-1.1) Eosinophils # (Auto) 0.5 x10^3/uL (0.0-0.7) 0.6 x10^3/uL (0.0-0.7) Basophils # (Auto) 0.0 x10^3/uL (0.0-0.2) 0.1 x10^3/uL (0.0-0.2) Sodium Level 138 mmol/L (136-145) 140 mmol/L (136-145) Potassium Level 4.3 mmol/L (3.5-5.1) 4.4 mmol/L (3.5-5.1) Chloride Level 103 mmol/L (98-107) 103 mmol/L (98-107) Carbon Dioxide Level 24 mmol/L (21-32) 25 mmol/L (21-32) Anion Gap 11 (6-14) 12 (6-14) Blood Urea Nitrogen 21 mg/dL (8-26) 22 mg/dL (8-26) Creatinine 1.3 mg/dL (0.7-1.3) 1.3 mg/dL (0.7-1.3) Estimated GFR (Cockcroft-Gault) 53.7 53.7 BUN/Creatinine Ratio 16 (6-20) Glucose Level 101 mg/dL (70-99) 91 mg/dL (70-99) Calcium Level 9.5 mg/dL (8.5-10.1) 9.4 mg/dL (8.5-10.1) Magnesium Level 1.9 mg/dL (1.8-2.4) Total Bilirubin 0.2 mg/dL (0.2-1.0) Aspartate Amino Transf (AST/SGOT) 14 U/L (15-37) Alanine Aminotransferase (ALT/SGPT) 14 U/L (16-63) Alkaline Phosphatase 115 U/L (46-116) Troponin I Quantitative < 0.017 ng/mL (0.000-0.055) < 0.017 ng/mL (0.000-0.055) < 0.017 ng/mL (0.000-0.055) YV-Jmm-I-Type Natriuretic Peptide 106 pg/mL (0-449) Total Protein 7.8 g/dL (6.4-8.2) Albumin 3.4 g/dL (3.4-5.0) Albumin/Globulin Ratio 0.8 (1.0-1.7) Lipase 532 U/L (73-393) Nasal Screen MRSA (PCR) Negative (Negative) Triglycerides Level 163 mg/dL (0-150) Cholesterol Level 239 mg/dL (0-200) LDL Cholesterol, Calculated 175 mg/dL (0-100) VLDL Cholesterol, Calculated 33 mg/dL (0-40) Non-HDL Cholesterol Calculated 208 mg/dL (0-129) HDL Cholesterol 31 mg/dL (40-60) Cholesterol/HDL Ratio 7.7 Test 04/11/18 12:28 04/11/18 17:59 04/12/18 05:10 Glucose (Fingerstick) 155 mg/dL (70-99) 98 mg/dL (70-99) White Blood Count 7.2 x10^3/uL (4.0-11.0) Red Blood Count 4.35 x10^6/uL (4.30-5.70) Hemoglobin 14.0 g/dL (13.0-17.5) Hematocrit 41.0 % (39.0-53.0) Mean Corpuscular Volume 94 fL (79-100) Mean Corpuscular Hemoglobin 32 pg (25-35) Mean Corpuscular Hemoglobin Concent 34 g/dL (31-37) Red Cell Distribution Width 14.4 % (11.5-14.5) Platelet Count 290 x10^3/uL (140-400) Neutrophils (%) (Auto) 54 % (31-73) Lymphocytes (%) (Auto) 26 % (24-48) Monocytes (%) (Auto) 10 % (0-9) Eosinophils (%) (Auto) 9 % (0-3) Basophils (%) (Auto) 1 % (0-3) Neutrophils # (Auto) 3.9 x10^3uL (1.8-7.7) Lymphocytes # (Auto) 1.9 x10^3/uL (1.0-4.8) Monocytes # (Auto) 0.7 x10^3/uL (0.0-1.1) Eosinophils # (Auto) 0.7 x10^3/uL (0.0-0.7) Basophils # (Auto) 0.1 x10^3/uL (0.0-0.2) Sodium Level 138 mmol/L (136-145) Potassium Level 4.1 mmol/L (3.5-5.1) Chloride Level 104 mmol/L (98-107) Carbon Dioxide Level 26 mmol/L (21-32) Anion Gap 8 (6-14) Blood Urea Nitrogen 21 mg/dL (8-26) Creatinine 1.2 mg/dL (0.7-1.3) Estimated GFR (Cockcroft-Gault) 58.9 Glucose Level 104 mg/dL (70-99) Calcium Level 9.3 mg/dL (8.5-10.1) Laboratory Tests Test 04/11/18 17:59 04/12/18 05:10 Glucose (Fingerstick) 98 mg/dL (70-99) White Blood Count 7.2 x10^3/uL (4.0-11.0) Red Blood Count 4.35 x10^6/uL (4.30-5.70) Hemoglobin 14.0 g/dL (13.0-17.5) Hematocrit 41.0 % (39.0-53.0) Mean Corpuscular Volume 94 fL (79-100) Mean Corpuscular Hemoglobin 32 pg (25-35) Mean Corpuscular Hemoglobin Concent 34 g/dL (31-37) Red Cell Distribution Width 14.4 % (11.5-14.5) Platelet Count 290 x10^3/uL (140-400) Neutrophils (%) (Auto) 54 % (31-73) Lymphocytes (%) (Auto) 26 % (24-48) Monocytes (%) (Auto) 10 % (0-9) Eosinophils (%) (Auto) 9 % (0-3) Basophils (%) (Auto) 1 % (0-3) Neutrophils # (Auto) 3.9 x10^3uL (1.8-7.7) Lymphocytes # (Auto) 1.9 x10^3/uL (1.0-4.8) Monocytes # (Auto) 0.7 x10^3/uL (0.0-1.1) Eosinophils # (Auto) 0.7 x10^3/uL (0.0-0.7) Basophils # (Auto) 0.1 x10^3/uL (0.0-0.2) Sodium Level 138 mmol/L (136-145) Potassium Level 4.1 mmol/L (3.5-5.1) Chloride Level 104 mmol/L (98-107) Carbon Dioxide Level 26 mmol/L (21-32) Anion Gap 8 (6-14) Blood Urea Nitrogen 21 mg/dL (8-26) Creatinine 1.2 mg/dL (0.7-1.3) Estimated GFR (Cockcroft-Gault) 58.9 Glucose Level 104 mg/dL (70-99) Calcium Level 9.3 mg/dL (8.5-10.1) Medications Current Medications Nitroglycerin (Nitrostat) 0.4 mg PRN Q5MIN PRN SL CHEST PAIN; Start 04/10/18 at 17:15 Atorvastatin Calcium (Lipitor) 40 mg QHS PO Last administered on 04/11/18at 20: 39; Start 04/11/18 at 21:00 Aspirin (Ecotrin) 81 mg DAILYWBKFT PO ; Start 04/12/18 at 08:00 Lisinopril (Prinivil) 10 mg DAILY PO Last administered on 04/11/18at 12:38; Start 04/11/18 at 11:00 Prochlorperazine Edisylate (Compazine) 5 mg PACU PRN PRN IV NAUSEA, MRX1; Start 04/12/18 at 07:00; Stop 04/13/18 at 06:59 Hydromorphone HCl (Dilaudid) 0.5 mg PRN Q10MIN PRN IV SEV PAIN, Second choice; Start 04/12/18 at 07:00; Stop 04/13/18 at 06:59 Lidocaine HCl (Xylocaine-Mpf 1% 2ml Vial) 2 ml PRN 1X PRN ID IV START; Start 04/12/18 at 07:00; Stop 04/13/18 at 06:59 Ringer's Solution 1,000 ml @ 30 mls/hr Q24H IV Last administered on 04/12/18at 08:53; Start 04/12/18 at 07:00; Stop 04/12/18 at 18:59 Morphine Sulfate (Morphine Sulfate) 1 mg PRN Q10MIN PRN IV SEVERE PAIN; Start 04/12/18 at 07:00; Stop 04/13/18 at 06:59 Fentanyl Citrate (Fentanyl 2ml Vial) 50 mcg PRN Q5MIN PRN IV MODERATE TO SEVERE PAIN; Start 04/12/18 at 07:00; Stop 04/13/18 at 06:59 Fentanyl Citrate (Fentanyl 2ml Vial) 25 mcg PRN Q5MIN PRN IV MILD PAIN; Start 04/12/18 at 07:00; Stop 04/13/18 at 06:59 Ondansetron HCl (Zofran) 4 mg PRN Q6HRS PRN IV NAUSEA/VOMITING; Start 04/12/18 at 07:00; Stop 04/13/18 at 06:59 Midazolam HCl (Versed) 2 mg PRN 1X PRN IV PRIOR TO PROCEDURE; Start 04/12/18 at 08:00; Stop 04/12/18 at 18:00 Fentanyl Citrate (Fentanyl 2ml Vial) 25 mcg PRN Q5MIN PRN IV X 2 DOSES FOR PAIN ; Start 04/12/18 at 08:00; Stop 04/12/18 at 18:00 Fentanyl Citrate (Fentanyl 2ml Vial) 50 mcg PRN Q5MIN PRN IV X 2 DOSES FOR PAIN ; Start 04/12/18 at 08:00; Stop 04/12/18 at 18:00 Ringer's Solution 1,000 ml @ 125 mls/hr Q8H IV ; Start 04/12/18 at 07:55; Stop 04/12/18 at 19:54 Lidocaine HCl (Xylocaine-Mpf 1% 2ml Vial) 2 ml 1X PRN PRN ID IV START; Start 04/12/18 at 08:00; Stop 04/12/18 at 18:00 Propofol 20 ml @ As Directed STK-MED ONCE IV ; Start 04/12/18 at 09:12; Stop at 09:13; Status DC Pantoprazole Sodium (Protonix) 40 mg DAILYAC PO ; Start 04/12/18 at 11:30 Iohexol (Omnipaque 300 Mg/ml) 60 ml 1X ONCE IV Last administered on 04/12/18at 10:45; Start 04/12/18 at 10:45; Stop 04/12/18 at 10:46; Status DC Iohexol (Omnipaque 240 Mg/ml) 30 ml 1X ONCE PO Last administered on 04/12/18at 10:45; Start 04/12/18 at 10:45; Stop 04/12/18 at 10:46; Status DC Info (CONTRAST GIVEN -- Rx MONITORING) 1 each PRN DAILY PRN MC SEE COMMENTS; Start 04/12/18 at 10:45; Stop 04/14/18 at 10:44 Iohexol (Omnipaque 240 Mg/ml) 30 ml 1X ONCE PO ; Start 04/12/18 at 12:00; Stop 04/12/18 at 12:01; Status DC Iohexol (Omnipaque 300 Mg/ml) 60 ml 1X ONCE IV ; Start 04/12/18 at 12:00; Stop 12/5/18 at 12:01; Status DC Info (CONTRAST GIVEN -- Rx MONITORING) 1 each PRN DAILY PRN MC SEE COMMENTS; Start 04/12/18 at 12:15; Stop 04/14/18 at 12:14 Active Scripts Active Reported Lisinopril 10 Mg Tablet 10 Mg PO BID PRN Metformin Hcl 500 Mg Tablet 500 Mg PO BIDWMEALS Gemfibrozil 600 Mg Tablet 600 Mg PO BID Vitals/I & O Vital Sign - Last 24 Hours 04/11/18 04/11/18 04/11/18 04/12/18 16:00 20:00 20:00 00:00 Temp 97.7 97.9 97.9 97.7 97.9 97.9 Pulse 48 81 83 Resp 20 20 13 B/P (MAP) 157/80 (105) 121/58 (79) 123/69 (87) Pulse Ox 98 98 98 O2 Delivery Room Air Room Air Room Air Room Air 04/12/18 04/12/18 04/12/18 04/12/18 04:00 08:48 08:50 10:02 Temp 98.1 97.8 97.6 98.1 97.8 97.6 Pulse 55 58 80 Resp 13 20 16 B/P (MAP) 102/53 (69) 139/59 Pulse Ox 98 96 91 O2 Delivery Room Air Room Air Nasal Cannula O2 Flow Rate 5 04/12/18 10:16 Pulse 84 Resp 20 B/P (MAP) 119/64 Pulse Ox 93 O2 Delivery Nasal Cannula O2 Flow Rate 2 Intake and Output 04/11/18 04/11/18 04/12/18 15:00 23:00 07:00 Intake Total 800 ml Output Total 400 ml Balance 400 ml IVAN CARPENTER III DO Apr 12, 2018 13:18
--- NOTE | 2018-04-12 15:33 | RAD ---
CT chest, abdomen and pelvis with contrast 2017 Clinical indications: Esophageal mass on EGD consistent with malignancy. COMPARISON: CT abdomen pelvis 10/06/2009. TECHNIQUE: Multiple CT images of the chest, abdomen and pelvis were obtained following the intravenous ministration of 60 mL Omnipaque 300. *One or more of the following individualized dose reduction techniques were utilized for this examination: 1. Automated exposure control. 2. Adjustment of the mA and/or kV according to patient size. 3. Use of iterative reconstruction technique. FINDINGS: CHEST: Heart size is normal without significant pericardial effusion. The thoracic aorta is normal in caliber with moderate mixed plaque. Three-vessel coronary artery calcifications and aortic valvular leaflet calcination is are noted. No axillary, mediastinal or hilar lymphadenopathy. There is a subcarinal calcified granuloma. The central airways are patent. There is a left lower lobe air cyst. Mild paraseptal and centrilobular emphysema. No suspicious noncalcified pulmonary nodules. No pleural effusion or pneumothorax. Multilevel thoracic spondylosis. There are no destructive osseous lesions. Abdomen and pelvis: Mild hepatic steatosis. No suspicious liver lesion. Gallbladder, spleen, adrenal glands and pancreas are unremarkable. Right kidney present without hydronephrosis. There are multiple right renal simple cyst with the largest exophytic from the superior pole measuring 9.4 cm. Anterior exophytic right renal cyst from the superior pole with minimal hairline calcification along the anterior margin consistent with a minimally complex cyst due to intracyst hemorrhage. There is an exophytic right renal lesion from the interpolar region measuring 1.0 cm with peripheral calcification internal high density series 4/image 36. Left kidney present without hydronephrosis. There is a simple inferior pole left renal cyst. Interval aortobiiliac bypass graft. There is mild mural thickening at the gastroesophageal junction. Small and large bowel loops are normal in caliber without obstruction. Moderate descending and sigmoid diverticulosis without diverticulitis. Appendectomy. No retroperitoneal or mesenteric lymphadenopathy. No iliac or inguinal lymphadenopathy. Mildly distended unopacified urinary bladder, prostate and seminal vesicles are unremarkable. There are no destructive osseous lesions. There are multifocal small periumbilical and supraumbilical fat-containing ventral hernias. IMPRESSION: CHEST: 1. No evidence of thoracic metastatic disease. 2. Mild emphysema. 3. Coronary artery and aortic valvular leaflet calcifications. Abdomen and pelvis: 1. Mild thickening at the gastroesophageal junction, may represent known malignancy versus reflux esophagitis. 2. No evidence of abdominal or pelvic metastatic disease. 3. Indeterminate right renal lesion, measuring 1 cm, with internal high density which may be due to intracyst hemorrhage, though solid enhancement not excluded. CT or MRI with contrast (renal protocol) is recommended to exclude renal malignancy. Electronically signed by: Jalen Leon MD (04/12/2018 3:30 PM) [id number]
[2018-04-12] MEDS: LISINOPRIL 10 MG TABLET PO SCH (16:52)
[2018-04-12] MEDS: PANTOPRAZOLE 40 MG TABLET.DR. PO SCH (16:52)
--- NOTE | 2018-04-12 18:59 | PDOC2 ---
CONSULT Date of Consult Date of Consult DATE: 04/12/18 TIME: 18:51 Reason for consultation: Esophageal tumor Consult: Hematology oncology, Dr. Jackie Kincaid History of present illness: He is a 77-year-old male who had chest pain, at the right side, unit, squeezing, severe, associated with trouble breathing, improved with nitroglycerin, and while here, got worse with movement, and present but milder in the past intermittently. He had an upper endoscopy which showed a friable tumor at 30-35 cm, with some circumferential involvement at the GE junction, concerning for adenocarcinoma, biopsy pending, and also showing duodenitis. Past medical history: Suspected esophageal cancer Diabetes mellitus 2 versus impaired fasting glucose Hypertension Hyperlipidemia History of thoracic and abdominal aneurysm GERD History of tobacco, currently smoking Occasional sinus bradycardia while here to the 40s Past surgical history: EGD Thoracic and abdominal aortic aneurysm repair Colonoscopy Appendectomy Allergies: No known drug allergies Medications: See attached list Social history: for 54 years, 2 children, stopped drinking alcohol when he got , no drugs, currently smoking, retired Family history: Hypertension, father with lung cancer, smoker Review of systems: Chest pain, shortness of air, GERD, weight loss of about 15 pounds this year, did choke on some chicken recently, otherwise 10 point review of systems is negative. Physical exam: Vitals reviewed Gen.: Well-nourished and well-developed in no acute distress, poor dental hygiene, family present at bedside HEENT: mucous membranes moist, head normocephalic atraumatic Neck: Supple, no lymphadenopathy Lymph nodes: No palpable lymphadenopathy neck or axilla Lungs: Breathing comfortably on room air, no evidence of respiratory distress Heart: Regular rate and rhythm Abdomen: Soft, nontender, nondistended Extremities: No cyanosis or edema Skin: No obvious rashes or skin breakdown Neuro: Alert and oriented 3 Psych: Normal mood and affect Lab reviewed: White count 7.2, hemoglobin 14, platelets 290 Creatinine 1.2 Hepatic panel not increased Troponin negative 3 Lipase of 532 Rads reviewed: Chest x-ray no acute disease CT chest abdomen and pelvis with mild thickening of the GE junction, mild emphysema, coronary artery and aortic valve calcifications, and 1 cm right indeterminate renal lesion, intracystic hemorrhage? Case discussed with: Pt and, his family, records reviewed [facility], including labs and radiology, please see note for summary details. 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 Esophageal mass: Await biopsy for further recommendations to confirm pathology, CT chest abdomen and pelvis reassuring for no evidence of metastatic disease though likely will pursue MRI renal protocol for this 1 cm indeterminate renal lesion Chest pain: Suspect related to esophageal tumor, cardiology has been consulted Tobacco abuse: Highly recommend smoking cessation now, he is not drinking alcohol Duodenitis: On PPI Disposition: Per others, he would likely stay to await biopsy results, however if he is discharged prior I will be happy to follow-up as an outpatient as needed. Thank you kindly for this consultation, I will return on Tuesday but am available for any questions in the interim. Past Medical History Cardiovascular: HTN, Hyperlipidemia Pulmonary: No pertinent hx CENTRAL NERVOUS SYSTEM: Other (No pertinent history) GI: GERD Hepatobiliary: No pertinent hx Psych: No pertinent hx Musculoskeletal: Osteoarthritis Rheumatologic: No pertinent hx Infectious disease: No pertinent hx ENT: Other (periodontal disease) Renal/: No pertinent hx Endocrine: Diabetes (?) Dermatology: No pertinent hx Past Surgical History Past Surgical History: Appendectomy, Other (thoracic and abdominal aneurysm repair) Social History 1 pack per day ALCOHOL: none Drugs: None Lives: with Family Current Medications Current Medications Current Medications Nitroglycerin (Nitrostat) 0.4 mg PRN Q5MIN PRN SL CHEST PAIN; Start 04/10/18 at 17:15 Atorvastatin Calcium (Lipitor) 40 mg QHS PO Last administered on 04/11/18at 20: 39; Start 04/11/18 at 21:00 Aspirin (Ecotrin) 81 mg DAILYWBKFT PO ; Start 04/12/18 at 08:00 Lisinopril (Prinivil) 10 mg DAILY PO Last administered on 04/12/18at 16:52; Start 04/11/18 at 11:00 Prochlorperazine Edisylate (Compazine) 5 mg PACU PRN PRN IV NAUSEA, MRX1; Start 04/12/18 at 07:00; Stop 04/13/18 at 06:59 Hydromorphone HCl (Dilaudid) 0.5 mg PRN Q10MIN PRN IV SEV PAIN, Second choice; Start 04/12/18 at 07:00; Stop 04/13/18 at 06:59 Lidocaine HCl (Xylocaine-Mpf 1% 2ml Vial) 2 ml PRN 1X PRN ID IV START; Start 04/12/18 at 07:00; Stop 04/13/18 at 06:59; Status Cancel Ringer's Solution 1,000 ml @ 30 mls/hr Q24H IV Last administered on 04/12/18at 08:53; Start 04/12/18 at 07:00; Stop 04/12/18 at 18:59 Morphine Sulfate (Morphine Sulfate) 1 mg PRN Q10MIN PRN IV SEVERE PAIN; Start 04/12/18 at 07:00; Stop 04/13/18 at 06:59 Fentanyl Citrate (Fentanyl 2ml Vial) 50 mcg PRN Q5MIN PRN IV MODERATE TO SEVERE PAIN; Start 04/12/18 at 07:00; Stop 04/13/18 at 06:59 Fentanyl Citrate (Fentanyl 2ml Vial) 25 mcg PRN Q5MIN PRN IV MILD PAIN; Start 04/12/18 at 07:00; Stop 04/13/18 at 06:59 Ondansetron HCl (Zofran) 4 mg PRN Q6HRS PRN IV NAUSEA/VOMITING; Start 04/12/18 at 07:00; Stop 04/13/18 at 06:59 Midazolam HCl (Versed) 2 mg PRN 1X PRN IV PRIOR TO PROCEDURE; Start 04/12/18 at 08:00; Stop 04/12/18 at 18:00; Status DC Fentanyl Citrate (Fentanyl 2ml Vial) 25 mcg PRN Q5MIN PRN IV X 2 DOSES FOR PAIN ; Start 04/12/18 at 08:00; Stop 04/12/18 at 18:00; Status Cancel Fentanyl Citrate (Fentanyl 2ml Vial) 50 mcg PRN Q5MIN PRN IV X 2 DOSES FOR PAIN ; Start 04/12/18 at 08:00; Stop 04/12/18 at 18:00; Status Cancel Ringer's Solution 1,000 ml @ 125 mls/hr Q8H IV ; Start 04/12/18 at 07:55; Stop 04/12/18 at 19:54 Lidocaine HCl (Xylocaine-Mpf 1% 2ml Vial) 2 ml 1X PRN PRN ID IV START; Start 04/12/18 at 08:00; Stop 04/12/18 at 18:00; Status DC Propofol 20 ml @ As Directed STK-MED ONCE IV ; Start 04/12/18 at 09:12; Stop at 09:13; Status DC Pantoprazole Sodium (Protonix) 40 mg DAILYAC PO Last administered on 04/12/18at 16:52; Start 04/12/18 at 11:30 Iohexol (Omnipaque 300 Mg/ml) 60 ml 1X ONCE IV Last administered on 04/12/18at 10:45; Start 04/12/18 at 10:45; Stop 04/12/18 at 10:46; Status DC Iohexol (Omnipaque 240 Mg/ml) 30 ml 1X ONCE PO Last administered on 04/12/18at 10:45; Start 04/12/18 at 10:45; Stop 04/12/18 at 10:46; Status DC Info (CONTRAST GIVEN -- Rx MONITORING) 1 each PRN DAILY PRN MC SEE COMMENTS; Start 04/12/18 at 10:45; Stop 04/14/18 at 10:44; Status Cancel Iohexol (Omnipaque 240 Mg/ml) 30 ml 1X ONCE PO ; Start 04/12/18 at 12:00; Stop 04/12/18 at 12:01; Status DC Iohexol (Omnipaque 300 Mg/ml) 60 ml 1X ONCE IV ; Start 04/12/18 at 12:00; Stop 04/12/18 at 12:01; Status DC Info (CONTRAST GIVEN -- Rx MONITORING) 1 each PRN DAILY PRN MC SEE COMMENTS; Start 04/12/18 at 12:15; Stop 04/14/18 at 12:14 Active Scripts Active Reported Lisinopril 10 Mg Tablet 10 Mg PO BID PRN Metformin Hcl 500 Mg Tablet 500 Mg PO BIDWMEALS Gemfibrozil 600 Mg Tablet 600 Mg PO BID Allergies Allergies: Coded Allergies: No Known Drug Allergies (Unverified , 04/12/18) Vitals VITALS Vital Signs Date Time Temp Pulse Resp B/P (MAP) Pulse Ox O2 Delivery O2 Flow Rate FiO2 04/12/18 16:52 127/60 04/12/18 12:00 97.6 52 24 96 Room Air 97.6 04/12/18 10:16 2 Labs Labs Laboratory Tests Test 04/10/18 21:20 04/10/18 23:15 04/11/18 01:50 04/11/18 12:28 Nasal Screen MRSA (PCR) Negative (Negative) Troponin I Quantitative < 0.017 ng/mL (0.000-0.055) < 0.017 ng/mL (0.000-0.055) White Blood Count 6.4 x10^3/uL (4.0-11.0) Red Blood Count 4.11 x10^6/uL (4.30-5.70) Hemoglobin 13.5 g/dL (13.0-17.5) Hematocrit 39.2 % (39.0-53.0) Mean Corpuscular Volume 95 fL (79-100) Mean Corpuscular Hemoglobin 33 pg (25-35) Mean Corpuscular Hemoglobin Concent 35 g/dL (31-37) Red Cell Distribution Width 14.2 % (11.5-14.5) Platelet Count 264 x10^3/uL (140-400) Neutrophils (%) (Auto) 39 % (31-73) Lymphocytes (%) (Auto) 39 % (24-48) Monocytes (%) (Auto) 11 % (0-9) Eosinophils (%) (Auto) 9 % (0-3) Basophils (%) (Auto) 2 % (0-3) Neutrophils # (Auto) 2.5 x10^3uL (1.8-7.7) Lymphocytes # (Auto) 2.5 x10^3/uL (1.0-4.8) Monocytes # (Auto) 0.7 x10^3/uL (0.0-1.1) Eosinophils # (Auto) 0.6 x10^3/uL (0.0-0.7) Basophils # (Auto) 0.1 x10^3/uL (0.0-0.2) Sodium Level 140 mmol/L (136-145) Potassium Level 4.4 mmol/L (3.5-5.1) Chloride Level 103 mmol/L (98-107) Carbon Dioxide Level 25 mmol/L (21-32) Anion Gap 12 (6-14) Blood Urea Nitrogen 22 mg/dL (8-26) Creatinine 1.3 mg/dL (0.7-1.3) Estimated GFR (Cockcroft-Gault) 53.7 Glucose Level 91 mg/dL (70-99) Calcium Level 9.4 mg/dL (8.5-10.1) Triglycerides Level 163 mg/dL (0-150) Cholesterol Level 239 mg/dL (0-200) LDL Cholesterol, Calculated 175 mg/dL (0-100) VLDL Cholesterol, Calculated 33 mg/dL (0-40) Non-HDL Cholesterol Calculated 208 mg/dL (0-129) HDL Cholesterol 31 mg/dL (40-60) Cholesterol/HDL Ratio 7.7 Glucose (Fingerstick) 155 mg/dL (70-99) Test 04/11/18 17:59 04/12/18 05:10 04/12/18 17:41 Glucose (Fingerstick) 98 mg/dL (70-99) 196 mg/dL (70-99) White Blood Count 7.2 x10^3/uL (4.0-11.0) Red Blood Count 4.35 x10^6/uL (4.30-5.70) Hemoglobin 14.0 g/dL (13.0-17.5) Hematocrit 41.0 % (39.0-53.0) Mean Corpuscular Volume 94 fL (79-100) Mean Corpuscular Hemoglobin 32 pg (25-35) Mean Corpuscular Hemoglobin Concent 34 g/dL (31-37) Red Cell Distribution Width 14.4 % (11.5-14.5) Platelet Count 290 x10^3/uL (140-400) Neutrophils (%) (Auto) 54 % (31-73) Lymphocytes (%) (Auto) 26 % (24-48) Monocytes (%) (Auto) 10 % (0-9) Eosinophils (%) (Auto) 9 % (0-3) Basophils (%) (Auto) 1 % (0-3) Neutrophils # (Auto) 3.9 x10^3uL (1.8-7.7) Lymphocytes # (Auto) 1.9 x10^3/uL (1.0-4.8) Monocytes # (Auto) 0.7 x10^3/uL (0.0-1.1) Eosinophils # (Auto) 0.7 x10^3/uL (0.0-0.7) Basophils # (Auto) 0.1 x10^3/uL (0.0-0.2) Sodium Level 138 mmol/L (136-145) Potassium Level 4.1 mmol/L (3.5-5.1) Chloride Level 104 mmol/L (98-107) Carbon Dioxide Level 26 mmol/L (21-32) Anion Gap 8 (6-14) Blood Urea Nitrogen 21 mg/dL (8-26) Creatinine 1.2 mg/dL (0.7-1.3) Estimated GFR (Cockcroft-Gault) 58.9 Glucose Level 104 mg/dL (70-99) Calcium Level 9.3 mg/dL (8.5-10.1) Laboratory Tests Test 04/12/18 05:10 04/12/18 17:41 White Blood Count 7.2 x10^3/uL (4.0-11.0) Red Blood Count 4.35 x10^6/uL (4.30-5.70) Hemoglobin 14.0 g/dL (13.0-17.5) Hematocrit 41.0 % (39.0-53.0) Mean Corpuscular Volume 94 fL (79-100) Mean Corpuscular Hemoglobin 32 pg (25-35) Mean Corpuscular Hemoglobin Concent 34 g/dL (31-37) Red Cell Distribution Width 14.4 % (11.5-14.5) Platelet Count 290 x10^3/uL (140-400) Neutrophils (%) (Auto) 54 % (31-73) Lymphocytes (%) (Auto) 26 % (24-48) Monocytes (%) (Auto) 10 % (0-9) Eosinophils (%) (Auto) 9 % (0-3) Basophils (%) (Auto) 1 % (0-3) Neutrophils # (Auto) 3.9 x10^3uL (1.8-7.7) Lymphocytes # (Auto) 1.9 x10^3/uL (1.0-4.8) Monocytes # (Auto) 0.7 x10^3/uL (0.0-1.1) Eosinophils # (Auto) 0.7 x10^3/uL (0.0-0.7) Basophils # (Auto) 0.1 x10^3/uL (0.0-0.2) Sodium Level 138 mmol/L (136-145) Potassium Level 4.1 mmol/L (3.5-5.1) Chloride Level 104 mmol/L (98-107) Carbon Dioxide Level 26 mmol/L (21-32) Anion Gap 8 (6-14) Blood Urea Nitrogen 21 mg/dL (8-26) Creatinine 1.2 mg/dL (0.7-1.3) Estimated GFR (Cockcroft-Gault) 58.9 Glucose Level 104 mg/dL (70-99) Calcium Level 9.3 mg/dL (8.5-10.1) Glucose (Fingerstick) 196 mg/dL (70-99) JACKIE KINCAID MD Apr 12, 2018 18:59
[2018-04-12] MEDS: ATORVASTATIN CALCIUM 40 MG TABLET. PO SCH (21:18)
[2018-04-13] VITALS: BP 107/51
[2018-04-13 03:40] LABS: BASO # 0.1 x10^3/uL (0.0-0.2); BASO % 1 % (0-3); EOS # 0.6 x10^3/uL (0.0-0.7); EOS % 9 % (0-3); HEMATOCRIT 37.5 % (39.0-53.0); HEMOGLOBIN 13.1 g/dL (13.0-17.5); LYMPH % 29 % (24-48); MEAN CORPUSCULAR HEMOGLOBIN 33 pg (25-35); MEAN CORPUSCULAR HGB CONC 35 g/dL (31-37); MEAN CORPUSCULAR VOLUME 94 fL (79-100); MONO # 0.7 x10^3/uL (0.0-1.1); MONO % 10 % (0-9); NEUT # 3.7 x10^3uL (1.8-7.7); NEUT % 52 % (31-73); PLATELET COUNT 266 x10^3/uL (140-400); RED BLOOD COUNT 3.98 x10^6/uL (4.30-5.70); RED CELL DISTRIBUTION WIDTH 14.2 % (11.5-14.5); WHITE BLOOD COUNT 7.1 x10^3/uL (4.0-11.0)
[2018-04-13 03:53] LABS: CALCIUM 8.7 mg/dL (8.5-10.1); CREATININE 1.2 mg/dL (0.7-1.3); GFR 58.9; POTASSIUM 4.2 mmol/L (3.5-5.1)
[2018-04-13 04:00] VITALS: BP 110/47
[2018-04-13] MEDS: LISINOPRIL 10 MG TABLET PO SCH (07:43)
[2018-04-13] MEDS: PANTOPRAZOLE 40 MG TABLET.DR. PO SCH (07:43)
[2018-04-13] MEDS: ASPIRIN ENTERIC COATED 81 MG TABLET.DR. PO SCH (07:43)
[2018-04-13 08:00] VITALS: BP 117/55
--- NOTE | 2018-04-13 09:12 | PDOC ---
Subjective: Subjective: Feels well, no chest pain or swallowing issues, glad he's not out in the snow. Objective: Vital Signs: Vital Signs Date Time Temp Pulse Resp B/P (MAP) Pulse Ox O2 Delivery O2 Flow Rate FiO2 04/13/18 07:43 67 101/55 04/13/18 04:00 98.5 17 96 Room Air 98.5 04/12/18 10:16 2 Labs: Laboratory Tests Test 04/12/18 17:41 Glucose (Fingerstick) 196 mg/dL (70-99) Imaging: Echo 04/11 <Conclusion> The Ejection Fraction is 55%. The left ventricular systolic function is normal and the ejection fraction is within normal range. There is normal LV segmental wall motion. EGD 04/12 E--Friable tumor anterior wall from 30-35cm c/w malignancy. Some circumferential involvement at GEJ. Able to pass with mild resistance. Biopsies done. G--Normal D--Nodular duodenitis, bulb IMP: Esophageal mass c/w malignancy; AdenoCa suspect. Duodenitis. C/A/P CT 04/12 IMPRESSION: CHEST: 1. No evidence of thoracic metastatic disease. 2. Mild emphysema. 3. Coronary artery and aortic valvular leaflet calcifications. ABDOMEN and PELVIS: 1. Mild thickening at the gastroesophageal junction, may represent known malignancy versus reflux esophagitis. 2. No evidence of abdominal or pelvic metastatic disease. 3. Indeterminate right renal lesion, measuring 1 cm, with internal high density which may be due to intracyst hemorrhage, though solid enhancement not excluded. CT or MRI with contrast (renal protocol) is recommended to exclude renal malignancy. PE: GEN: NAD, up to chair eating breakfast LUNGS: CTAB HEART: RRR ABD: S/ND/NT NEURO/PSYCH: A & O 3 A/P: Esophageal mass - path pending -- Supportive care, await path. STELLA YIP Apr 13, 2018 09:12
--- NOTE | 2018-04-13 10:46 | PDOC ---
PROGRESS NOTES Chief Complaint Chief Complaint Chest pain History of Present Illness History of Present Illness Pt was seen and examined in ICU today. He is sitting up in chair, in good spirits and wants to go home. No current complaints. Pt had chest, abdominal, and pelvic CT yesterday (04/12) that showed a right renal lesion of 1 cm, pt will be getting either an MRI or CT w/ contrast to r/o malignancy. Pt reports no recent weight loss or difficulty with swallowing but did admit to pain with swallowing. Pt had EGD with Bx yesterday (04/12) - 30-35cm mass found in distal esophagus probable Adenocarcinoma per GI. Heme/Onc consulted to discuss next steps Pt has hx AAA with thoracic aneurysm- cardio following. Follwed by Cardio, GI, Hem/onc Vitals Vitals Vital Signs Date Time Temp Pulse Resp B/P (MAP) Pulse Ox O2 Delivery O2 Flow Rate FiO2 04/13/18 08:00 97.8 67 22 117/55 (75) 97 Room Air 97.8 04/12/18 10:16 2 Physical Exam General: Alert, Oriented X3, Cooperative, No acute distress Heart: Regular rate (SR), Other (distnat heart sounds) Lungs: Clear, Other (no wheezes appreciated on ascultation) Abdomen: Soft, No tenderness Extremities: No cyanosis, No edema Skin: No breakdown, No significant lesion Labs LABS Laboratory Tests Test 04/12/18 17:41 04/13/18 03:10 Glucose (Fingerstick) 196 mg/dL (70-99) White Blood Count 7.1 x10^3/uL (4.0-11.0) Red Blood Count 3.98 x10^6/uL (4.30-5.70) Hemoglobin 13.1 g/dL (13.0-17.5) Hematocrit 37.5 % (39.0-53.0) Mean Corpuscular Volume 94 fL (79-100) Mean Corpuscular Hemoglobin 33 pg (25-35) Mean Corpuscular Hemoglobin Concent 35 g/dL (31-37) Red Cell Distribution Width 14.2 % (11.5-14.5) Platelet Count 266 x10^3/uL (140-400) Neutrophils (%) (Auto) 52 % (31-73) Lymphocytes (%) (Auto) 29 % (24-48) Monocytes (%) (Auto) 10 % (0-9) Eosinophils (%) (Auto) 9 % (0-3) Basophils (%) (Auto) 1 % (0-3) Neutrophils # (Auto) 3.7 x10^3uL (1.8-7.7) Lymphocytes # (Auto) 2.0 x10^3/uL (1.0-4.8) Monocytes # (Auto) 0.7 x10^3/uL (0.0-1.1) Eosinophils # (Auto) 0.6 x10^3/uL (0.0-0.7) Basophils # (Auto) 0.1 x10^3/uL (0.0-0.2) Sodium Level 139 mmol/L (136-145) Potassium Level 4.2 mmol/L (3.5-5.1) Chloride Level 103 mmol/L (98-107) Carbon Dioxide Level 26 mmol/L (21-32) Anion Gap 10 (6-14) Blood Urea Nitrogen 20 mg/dL (8-26) Creatinine 1.2 mg/dL (0.7-1.3) Estimated GFR (Cockcroft-Gault) 58.9 Glucose Level 107 mg/dL (70-99) Calcium Level 8.7 mg/dL (8.5-10.1) Review of Systems Review of Systems PULM: Yes cough, no sob HEENT: No visual changes, hearing changes Assessment and Plan Assessmemt and Plan ASSESSMENT: Chest Pain Large Esophageal Mass (30-35 cm) PLAN: ICU Monitoring Recheck labs in AM Consult PT/OT Home Meds Subspecialty input appreciated Await contrast study results Await esophageal mass biopsy results DVT Prophylaxis Comment Review of Relevant I have reviewed the following items erica (where applicable) has been applied. Labs Laboratory Tests Test 04/11/18 12:28 04/11/18 17:59 04/12/18 05:10 04/12/18 17:41 Glucose (Fingerstick) 155 mg/dL (70-99) 98 mg/dL (70-99) 196 mg/dL (70-99) White Blood Count 7.2 x10^3/uL (4.0-11.0) Red Blood Count 4.35 x10^6/uL (4.30-5.70) Hemoglobin 14.0 g/dL (13.0-17.5) Hematocrit 41.0 % (39.0-53.0) Mean Corpuscular Volume 94 fL (79-100) Mean Corpuscular Hemoglobin 32 pg (25-35) Mean Corpuscular Hemoglobin Concent 34 g/dL (31-37) Red Cell Distribution Width 14.4 % (11.5-14.5) Platelet Count 290 x10^3/uL (140-400) Neutrophils (%) (Auto) 54 % (31-73) Lymphocytes (%) (Auto) 26 % (24-48) Monocytes (%) (Auto) 10 % (0-9) Eosinophils (%) (Auto) 9 % (0-3) Basophils (%) (Auto) 1 % (0-3) Neutrophils # (Auto) 3.9 x10^3uL (1.8-7.7) Lymphocytes # (Auto) 1.9 x10^3/uL (1.0-4.8) Monocytes # (Auto) 0.7 x10^3/uL (0.0-1.1) Eosinophils # (Auto) 0.7 x10^3/uL (0.0-0.7) Basophils # (Auto) 0.1 x10^3/uL (0.0-0.2) Sodium Level 138 mmol/L (136-145) Potassium Level 4.1 mmol/L (3.5-5.1) Chloride Level 104 mmol/L (98-107) Carbon Dioxide Level 26 mmol/L (21-32) Anion Gap 8 (6-14) Blood Urea Nitrogen 21 mg/dL (8-26) Creatinine 1.2 mg/dL (0.7-1.3) Estimated GFR (Cockcroft-Gault) 58.9 Glucose Level 104 mg/dL (70-99) Calcium Level 9.3 mg/dL (8.5-10.1) Test 04/13/18 03:10 White Blood Count 7.1 x10^3/uL (4.0-11.0) Red Blood Count 3.98 x10^6/uL (4.30-5.70) Hemoglobin 13.1 g/dL (13.0-17.5) Hematocrit 37.5 % (39.0-53.0) Mean Corpuscular Volume 94 fL (79-100) Mean Corpuscular Hemoglobin 33 pg (25-35) Mean Corpuscular Hemoglobin Concent 35 g/dL (31-37) Red Cell Distribution Width 14.2 % (11.5-14.5) Platelet Count 266 x10^3/uL (140-400) Neutrophils (%) (Auto) 52 % (31-73) Lymphocytes (%) (Auto) 29 % (24-48) Monocytes (%) (Auto) 10 % (0-9) Eosinophils (%) (Auto) 9 % (0-3) Basophils (%) (Auto) 1 % (0-3) Neutrophils # (Auto) 3.7 x10^3uL (1.8-7.7) Lymphocytes # (Auto) 2.0 x10^3/uL (1.0-4.8) Monocytes # (Auto) 0.7 x10^3/uL (0.0-1.1) Eosinophils # (Auto) 0.6 x10^3/uL (0.0-0.7) Basophils # (Auto) 0.1 x10^3/uL (0.0-0.2) Sodium Level 139 mmol/L (136-145) Potassium Level 4.2 mmol/L (3.5-5.1) Chloride Level 103 mmol/L (98-107) Carbon Dioxide Level 26 mmol/L (21-32) Anion Gap 10 (6-14) Blood Urea Nitrogen 20 mg/dL (8-26) Creatinine 1.2 mg/dL (0.7-1.3) Estimated GFR (Cockcroft-Gault) 58.9 Glucose Level 107 mg/dL (70-99) Calcium Level 8.7 mg/dL (8.5-10.1) Laboratory Tests Test 04/12/18 17:41 04/13/18 03:10 Glucose (Fingerstick) 196 mg/dL (70-99) White Blood Count 7.1 x10^3/uL (4.0-11.0) Red Blood Count 3.98 x10^6/uL (4.30-5.70) Hemoglobin 13.1 g/dL (13.0-17.5) Hematocrit 37.5 % (39.0-53.0) Mean Corpuscular Volume 94 fL (79-100) Mean Corpuscular Hemoglobin 33 pg (25-35) Mean Corpuscular Hemoglobin Concent 35 g/dL (31-37) Red Cell Distribution Width 14.2 % (11.5-14.5) Platelet Count 266 x10^3/uL (140-400) Neutrophils (%) (Auto) 52 % (31-73) Lymphocytes (%) (Auto) 29 % (24-48) Monocytes (%) (Auto) 10 % (0-9) Eosinophils (%) (Auto) 9 % (0-3) Basophils (%) (Auto) 1 % (0-3) Neutrophils # (Auto) 3.7 x10^3uL (1.8-7.7) Lymphocytes # (Auto) 2.0 x10^3/uL (1.0-4.8) Monocytes # (Auto) 0.7 x10^3/uL (0.0-1.1) Eosinophils # (Auto) 0.6 x10^3/uL (0.0-0.7) Basophils # (Auto) 0.1 x10^3/uL (0.0-0.2) Sodium Level 139 mmol/L (136-145) Potassium Level 4.2 mmol/L (3.5-5.1) Chloride Level 103 mmol/L (98-107) Carbon Dioxide Level 26 mmol/L (21-32) Anion Gap 10 (6-14) Blood Urea Nitrogen 20 mg/dL (8-26) Creatinine 1.2 mg/dL (0.7-1.3) Estimated GFR (Cockcroft-Gault) 58.9 Glucose Level 107 mg/dL (70-99) Calcium Level 8.7 mg/dL (8.5-10.1) Medications Current Medications Nitroglycerin (Nitrostat) 0.4 mg PRN Q5MIN PRN SL CHEST PAIN; Start 04/10/18 at 17:15 Atorvastatin Calcium (Lipitor) 40 mg QHS PO Last administered on 04/12/18at 21: 18; Start 04/11/18 at 21:00 Aspirin (Ecotrin) 81 mg DAILYWBKFT PO Last administered on 04/13/18at 07:43; Start 04/12/18 at 08:00 Lisinopril (Prinivil) 10 mg DAILY PO Last administered on 04/13/18at 07:43; Start 04/11/18 at 11:00 Prochlorperazine Edisylate (Compazine) 5 mg PACU PRN PRN IV NAUSEA, MRX1; Start 04/12/18 at 07:00; Stop 04/13/18 at 06:59; Status DC Hydromorphone HCl (Dilaudid) 0.5 mg PRN Q10MIN PRN IV SEV PAIN, Second choice; Start 04/12/18 at 07:00; Stop 04/13/18 at 06:59; Status DC Lidocaine HCl (Xylocaine-Mpf 1% 2ml Vial) 2 ml PRN 1X PRN ID IV START; Start 04/12/18 at 07:00; Stop 04/13/18 at 06:59; Status Cancel Ringer's Solution 1,000 ml @ 30 mls/hr Q24H IV Last administered on 04/12/18at 08:53; Start 04/12/18 at 07:00; Stop 04/12/18 at 18:59; Status DC Morphine Sulfate (Morphine Sulfate) 1 mg PRN Q10MIN PRN IV SEVERE PAIN; Start 04/12/18 at 07:00; Stop 04/13/18 at 06:59; Status DC Fentanyl Citrate (Fentanyl 2ml Vial) 50 mcg PRN Q5MIN PRN IV MODERATE TO SEVERE PAIN; Start 04/12/18 at 07:00; Stop 04/13/18 at 06:59; Status DC Fentanyl Citrate (Fentanyl 2ml Vial) 25 mcg PRN Q5MIN PRN IV MILD PAIN; Start 04/12/18 at 07:00; Stop 04/13/18 at 06:59; Status DC Ondansetron HCl (Zofran) 4 mg PRN Q6HRS PRN IV NAUSEA/VOMITING; Start 04/12/18 at 07:00; Stop 04/13/18 at 06:59; Status DC Midazolam HCl (Versed) 2 mg PRN 1X PRN IV PRIOR TO PROCEDURE; Start 04/12/18 at 08:00; Stop 04/12/18 at 18:00; Status DC Fentanyl Citrate (Fentanyl 2ml Vial) 25 mcg PRN Q5MIN PRN IV X 2 DOSES FOR PAIN ; Start 04/12/18 at 08:00; Stop 04/12/18 at 18:00; Status Cancel Fentanyl Citrate (Fentanyl 2ml Vial) 50 mcg PRN Q5MIN PRN IV X 2 DOSES FOR PAIN ; Start 04/12/18 at 08:00; Stop 04/12/18 at 18:00; Status Cancel Ringer's Solution 1,000 ml @ 125 mls/hr Q8H IV ; Start 04/12/18 at 07:55; Stop 04/12/18 at 19:54; Status DC Lidocaine HCl (Xylocaine-Mpf 1% 2ml Vial) 2 ml 1X PRN PRN ID IV START; Start 04/12/18 at 08:00; Stop 04/12/18 at 18:00; Status DC Propofol 20 ml @ As Directed STK-MED ONCE IV ; Start 04/12/18 at 09:12; Stop at 09:13; Status DC Pantoprazole Sodium (Protonix) 40 mg DAILYAC PO Last administered on 04/13/18at 07:43; Start 04/12/18 at 11:30 Iohexol (Omnipaque 300 Mg/ml) 60 ml 1X ONCE IV Last administered on 04/12/18at 10:45; Start 04/12/18 at 10:45; Stop 04/12/18 at 10:46; Status DC Iohexol (Omnipaque 240 Mg/ml) 30 ml 1X ONCE PO Last administered on 04/12/18at 10:45; Start 04/12/18 at 10:45; Stop 04/12/18 at 10:46; Status DC Info (CONTRAST GIVEN -- Rx MONITORING) 1 each PRN DAILY PRN MC SEE COMMENTS; Start 04/12/18 at 10:45; Stop 04/14/18 at 10:44; Status Cancel Iohexol (Omnipaque 240 Mg/ml) 30 ml 1X ONCE PO ; Start 04/12/18 at 12:00; Stop 04/12/18 at 12:01; Status DC Iohexol (Omnipaque 300 Mg/ml) 60 ml 1X ONCE IV ; Start 04/12/18 at 12:00; Stop 04/12/18 at 12:01; Status DC Info (CONTRAST GIVEN -- Rx MONITORING) 1 each PRN DAILY PRN MC SEE COMMENTS; Start 04/12/18 at 12:15; Stop 04/14/18 at 12:14 Active Scripts Active Reported Lisinopril 10 Mg Tablet 10 Mg PO BID PRN Metformin Hcl 500 Mg Tablet 500 Mg PO BIDWMEALS Gemfibrozil 600 Mg Tablet 600 Mg PO BID Vitals/I & O Vital Sign - Last 24 Hours 04/12/18 04/12/18 04/12/18 04/12/18 10:45 11:00 11:15 12:00 Temp 97.6 97.6 Pulse 50 52 52 52 Resp 24 26 24 24 B/P (MAP) 143/67 (92) 123/60 (81) 127/63 (84) 119/55 (76) Pulse Ox 98 97 98 96 O2 Delivery Room Air Room Air Room Air Room Air 04/12/18 04/12/18 04/12/18 04/12/18 16:00 16:52 20:00 20:00 Temp 98.0 98.0 98.0 98.0 Pulse 53 69 Resp 24 16 B/P (MAP) 127/60 (82) 127/60 117/81 (93) Pulse Ox 97 94 O2 Delivery Room Air Room Air Room Air 04/13/18 04/13/18 04/13/18 04/13/18 00:00 04:00 07:43 08:00 Temp 98.2 98.5 98.2 98.5 Pulse 53 57 67 Resp 19 17 B/P (MAP) 107/51 (69) 110/47 (68) 101/55 Pulse Ox 94 96 O2 Delivery Room Air Room Air Room Air 04/13/18 08:00 Temp 97.8 97.8 Pulse 67 Resp 22 B/P (MAP) 117/55 (75) Pulse Ox 97 O2 Delivery Room Air Intake and Output 04/12/18 04/12/18 04/13/18 15:00 23:00 07:00 Intake Total 550 ml Output Total 225 ml Balance 550 ml -225 ml IVAN CARPENTER III DO Apr 13, 2018 10:46
[2018-04-13 12:00] VITALS: BP 103/52
--- NOTE | 2018-04-13 14:13 | PATHOLOGY ---
[facility] Accession Number: [id number] . 01 Material submitted: . DISTAL ESOPHAGEAL MASS BIOPSY . 01 Clinical history: . Chest pain . 02 Diagnosis: Esophageal biopsies, distal esophageal mass: - ADENOCARCINOMA, MODERATELY-WELL DIFFERENTIATED. SEE COMMENT. . (JPM:mml; 04/13/18) [facility]/04/13/2018 . 02 Comment: Sections of the distal esophageal mass biopsy focally reveal malignant glands which irregularly infiltrate an inflamed reactive stroma. Some of the glands are distended with mucin and there is focal mucin extravasation into the stroma. Other mucosal biopsy fragments demonstrate glands showing low to high grade dysplasia. The morphologic findings are supportive of the diagnosis of a moderately-well differentiated adenocarcinoma. The case is also examined with Dr. Sherman, who concurs with the diagnosis. The results are reported to Dr. Delarosa on 04/13/18. . (JPM:mml; 04/13/18) . 02 Electronically signed: . Gama Hudson MD, Pathologist NPI- [id number] . 01 Gross description: . Received in formalin labeled "Miguel A Dutton, distal esophageal mass BX," are multiple segments of phillips soft tissue measuring 1.0 x 0.5 x 0.1 cm in aggregate dimensions. The specimen is filtered and entirely submitted in cassette A1. (TSD; 04/12/2018) TOB/TOB . 02 Pathologist provided ICD-10: C15.9 . 02 CPT . 969652 Specimen Comment: A courtesy copy of this report has been sent to Specimen Comment: [phone], , , . Specimen Comment: Report sent to ,DR LOPEZ,DR LASSITER / DR SALAMANCA Specimen Comment: A duplicate report has been generated due to demographic updates. Performed at: 01 [facility] [address], [place] [id number] MD Deyvi Nevarez MD Phone: [phone] Performed at: 02 [facility] [address] [place], [place] [id number] MD Gama Hudson MD Phone: [phone]
[2018-04-13 16:00] VITALS: BP 112/49
[2018-04-13 20:00] VITALS: BP 110/51
[2018-04-13] MEDS: ATORVASTATIN CALCIUM 40 MG TABLET. PO SCH (21:15)
[2018-04-14] VITALS: BP 106/58
[2018-04-14 04:00] VITALS: BP 112/61
[2018-04-14 04:39] LABS: BASO # 0.1 x10^3/uL (0.0-0.2); BASO % 1 % (0-3); EOS # 0.6 x10^3/uL (0.0-0.7); EOS % 8 % (0-3); HEMATOCRIT 38.1 % (39.0-53.0); LYMPH # 1.8 x10^3/uL (1.0-4.8); LYMPH % 27 % (24-48); MEAN CORPUSCULAR HEMOGLOBIN 32 pg (25-35); MEAN CORPUSCULAR HGB CONC 34 g/dL (31-37); MEAN CORPUSCULAR VOLUME 95 fL (79-100); MONO # 0.7 x10^3/uL (0.0-1.1); MONO % 11 % (0-9); NEUT # 3.5 x10^3uL (1.8-7.7); NEUT % 53 % (31-73); PLATELET COUNT 248 x10^3/uL (140-400); RED CELL DISTRIBUTION WIDTH 14.3 % (11.5-14.5); WHITE BLOOD COUNT 6.7 x10^3/uL (4.0-11.0)
[2018-04-14 05:03] LABS: CALCIUM 9.2 mg/dL (8.5-10.1); CREATININE 1.2 mg/dL (0.7-1.3); GFR 58.9; POTASSIUM 4.4 mmol/L (3.5-5.1)
[2018-04-14 08:00] VITALS: BP 150/54
--- NOTE | 2018-04-14 09:48 | PDOC ---
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 Thank you kindly and please do not hesitate to call with questions. OBJECTIVE Vital Signs Vital Signs Date Time Temp Pulse Resp B/P (MAP) Pulse Ox O2 Delivery O2 Flow Rate FiO2 04/14/18 08:00 97.3 51 16 150/54 (86) 98 Room Air 97.3 04/14/18 04:00 98.0 52 27 112/61 (78) 96 Room Air 98.0 04/14/18 00:00 98.5 46 29 106/58 (74) 94 Room Air 98.5 04/13/18 20:00 97.8 53 26 110/51 (70) 95 Room Air 97.8 04/13/18 20:00 Room Air 04/13/18 16:00 55 16 112/49 (70) 96 Room Air 04/13/18 12:00 97.7 56 22 103/52 (69) 97 Room Air 97.7 I & O Intake and Output 04/14/18 07:00 Intake Total 240 ml Output Total 0 ml Balance 240 ml Intake Oral 240 ml Output Urine Total 0 ml # Voids 9 # Bowel Movements 2 COMMENT Lab Laboratory Tests Test 04/13/18 17:00 04/14/18 04:15 Glucose (Fingerstick) 122 mg/dL (70-99) White Blood Count 6.7 x10^3/uL (4.0-11.0) Red Blood Count 4.00 x10^6/uL (4.30-5.70) Hemoglobin 13.0 g/dL (13.0-17.5) Hematocrit 38.1 % (39.0-53.0) Mean Corpuscular Volume 95 fL (79-100) Mean Corpuscular Hemoglobin 32 pg (25-35) Mean Corpuscular Hemoglobin Concent 34 g/dL (31-37) Red Cell Distribution Width 14.3 % (11.5-14.5) Platelet Count 248 x10^3/uL (140-400) Neutrophils (%) (Auto) 53 % (31-73) Lymphocytes (%) (Auto) 27 % (24-48) Monocytes (%) (Auto) 11 % (0-9) Eosinophils (%) (Auto) 8 % (0-3) Basophils (%) (Auto) 1 % (0-3) Neutrophils # (Auto) 3.5 x10^3uL (1.8-7.7) Lymphocytes # (Auto) 1.8 x10^3/uL (1.0-4.8) Monocytes # (Auto) 0.7 x10^3/uL (0.0-1.1) Eosinophils # (Auto) 0.6 x10^3/uL (0.0-0.7) Basophils # (Auto) 0.1 x10^3/uL (0.0-0.2) Sodium Level 140 mmol/L (136-145) Potassium Level 4.4 mmol/L (3.5-5.1) Chloride Level 104 mmol/L (98-107) Carbon Dioxide Level 26 mmol/L (21-32) Anion Gap 10 (6-14) Blood Urea Nitrogen 22 mg/dL (8-26) Creatinine 1.2 mg/dL (0.7-1.3) Estimated GFR (Cockcroft-Gault) 58.9 Glucose Level 105 mg/dL (70-99) Calcium Level 9.2 mg/dL (8.5-10.1) JACKIE AKHTAR MD Apr 14, 2018 09:48
--- NOTE | 2018-04-14 10:09 | PDOC ---
Subjective: Subjective: No complaints, had some good hot chocolate earlier. Objective: Objective: D/w Dr. Kincaid earlier - would like to pursue EUS. Vital Signs: Vital Signs Date Time Temp Pulse Resp B/P (MAP) Pulse Ox O2 Delivery O2 Flow Rate FiO2 04/14/18 08:00 97.3 51 16 150/54 (86) 98 Room Air 97.3 Labs: Laboratory Tests Test 04/13/18 17:00 04/14/18 04:15 Glucose (Fingerstick) 122 mg/dL White Blood Count 6.7 x10^3/uL Red Blood Count 4.00 x10^6/uL Hemoglobin 13.0 g/dL Hematocrit 38.1 % Mean Corpuscular Volume 95 fL Mean Corpuscular Hemoglobin 32 pg Mean Corpuscular Hemoglobin Concent 34 g/dL Red Cell Distribution Width 14.3 % Platelet Count 248 x10^3/uL Neutrophils (%) (Auto) 53 % Lymphocytes (%) (Auto) 27 % Monocytes (%) (Auto) 11 % Eosinophils (%) (Auto) 8 % Basophils (%) (Auto) 1 % Neutrophils # (Auto) 3.5 x10^3uL Lymphocytes # (Auto) 1.8 x10^3/uL Monocytes # (Auto) 0.7 x10^3/uL Eosinophils # (Auto) 0.6 x10^3/uL Basophils # (Auto) 0.1 x10^3/uL Sodium Level 140 mmol/L Potassium Level 4.4 mmol/L Chloride Level 104 mmol/L Carbon Dioxide Level 26 mmol/L Anion Gap 10 Blood Urea Nitrogen 22 mg/dL Creatinine 1.2 mg/dL Estimated GFR (Cockcroft-Gault) 58.9 Glucose Level 105 mg/dL Calcium Level 9.2 mg/dL Material submitted: . DISTAL ESOPHAGEAL MASS BIOPSY Diagnosis: Esophageal biopsies, distal esophageal mass: - ADENOCARCINOMA, MODERATELY-WELL DIFFERENTIATED. SEE COMMENT. Comment: Sections of the distal esophageal mass biopsy focally reveal malignant glands which irregularly infiltrate an inflamed reactive stroma. Some of the glands are distended with mucin and there is focal mucin extravasation into the stroma. Other mucosal biopsy fragments demonstrate glands showing low to high grade dysplasia. The morphologic findings are supportive of the diagnosis of a moderately-well differentiated adenocarcinoma. The case is also examined with Dr. Sherman, who concurs with the diagnosis. The results are reported to Dr. Delarosa on 04/13/18. PE: GEN: NAD LUNGS: CTAB HEART: RRR ABD: S/ND/NT NEURO/PSYCH: A & O 3, cheerful A/P: Esophageal mass - +adenocarcinoma -- DC per primary. Our office can refer to [facility] for outpt EUS. Follow-up w/ oncology. STELLA YIP Apr 14, 2018 10:09
[2018-04-14] MEDS: PANTOPRAZOLE 40 MG TABLET.DR. PO SCH (10:49)
[2018-04-14] MEDS: LISINOPRIL 10 MG TABLET PO SCH (10:50)
[2018-04-14] MEDS: ASPIRIN ENTERIC COATED 81 MG TABLET.DR. PO SCH (10:50)
[2018-04-14 11:00] VITALS: BP 150/54
--- NOTE | 2018-04-14 11:28 | PDOC ---
PROGRESS NOTES Chief Complaint Chief Complaint Chest pain RESOLVED History of Present Illness History of Present Illness Pt was seen and examined . He is sitting up in chair, in good spirits and wants to go home. EATING WELL Pt had chest, abdominal, (04/12) that showed a right renal lesion of 1 cm , pt will be getting either an MRI or CT w/ contrast to r/o malignancy. 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 Heme/Onc consulted to discuss next steps REVIEWED WITH PT Pt has hx AAA with thoracic aneurysm- cardio following. Follwed by Cardio, GI, Hem/onc Mild thickening at the gastroesophageal junction, may represent known malignancy Vitals Vitals Vital Signs Date Time Temp Pulse Resp B/P (MAP) Pulse Ox O2 Delivery O2 Flow Rate FiO2 04/14/18 10:50 51 150/54 04/14/18 08:00 97.3 16 98 Room Air 97.3 Physical Exam General: Alert, Oriented X3, Cooperative, No acute distress Heart: Regular rate (SR), Normal S1, Normal S2, No murmurs, Other (distnat heart sounds) Lungs: Clear, Other (no wheezes appreciated on ascultation) Abdomen: Soft, No tenderness Extremities: No cyanosis, No edema Skin: No breakdown, No significant lesion Labs LABS Interval aortobiiliac bypass graft. There is mild mural thickening at the gastroesophageal junction. Small and large bowel loops are normal in caliber without obstruction. Moderate descending and sigmoid diverticulosis without diverticulitis. Appendectomy. No retroperitoneal or mesenteric lymphadenopathy. No iliac or inguinal lymphadenopathy. Mildly distended unopacified urinary bladder, prostate and seminal vesicles are unremarkable. There are no destructive osseous lesions. There are multifocal small periumbilical and supraumbilical fat-containing ventral hernias. IMPRESSION: CHEST: 1. No evidence of thoracic metastatic disease. 2. Mild emphysema. 3. Coronary artery and aortic valvular leaflet calcifications. Abdomen and pelvis: 1. Mild thickening at the gastroesophageal junction, may represent known malignancy versus reflux esophagitis. 2. No evidence of abdominal or pelvic metastatic disease. 3. Indeterminate right renal lesion, measuring 1 cm, with internal high density which may be due to intracyst hemorrhage, though solid enhancement not excluded. CT or MRI with contrast (renal protocol) is recommended to exclude renal malignancy. Electronically signed by: Jalen Leon MD (04/12/2018 3:30 PM) [id number] Laboratory Tests Test 04/13/18 17:00 04/14/18 04:15 Glucose (Fingerstick) 122 mg/dL (70-99) White Blood Count 6.7 x10^3/uL (4.0-11.0) Red Blood Count 4.00 x10^6/uL (4.30-5.70) Hemoglobin 13.0 g/dL (13.0-17.5) Hematocrit 38.1 % (39.0-53.0) Mean Corpuscular Volume 95 fL (79-100) Mean Corpuscular Hemoglobin 32 pg (25-35) Mean Corpuscular Hemoglobin Concent 34 g/dL (31-37) Red Cell Distribution Width 14.3 % (11.5-14.5) Platelet Count 248 x10^3/uL (140-400) Neutrophils (%) (Auto) 53 % (31-73) Lymphocytes (%) (Auto) 27 % (24-48) Monocytes (%) (Auto) 11 % (0-9) Eosinophils (%) (Auto) 8 % (0-3) Basophils (%) (Auto) 1 % (0-3) Neutrophils # (Auto) 3.5 x10^3uL (1.8-7.7) Lymphocytes # (Auto) 1.8 x10^3/uL (1.0-4.8) Monocytes # (Auto) 0.7 x10^3/uL (0.0-1.1) Eosinophils # (Auto) 0.6 x10^3/uL (0.0-0.7) Basophils # (Auto) 0.1 x10^3/uL (0.0-0.2) Sodium Level 140 mmol/L (136-145) Potassium Level 4.4 mmol/L (3.5-5.1) Chloride Level 104 mmol/L (98-107) Carbon Dioxide Level 26 mmol/L (21-32) Anion Gap 10 (6-14) Blood Urea Nitrogen 22 mg/dL (8-26) Creatinine 1.2 mg/dL (0.7-1.3) Estimated GFR (Cockcroft-Gault) 58.9 Glucose Level 105 mg/dL (70-99) Calcium Level 9.2 mg/dL (8.5-10.1) Comment Review of Relevant I have reviewed the following items erica (where applicable) has been applied. Labs Laboratory Tests Test 04/12/18 17:41 04/13/18 03:10 04/13/18 17:00 04/14/18 04:15 Glucose (Fingerstick) 196 mg/dL (70-99) 122 mg/dL (70-99) White Blood Count 7.1 x10^3/uL (4.0-11.0) 6.7 x10^3/uL (4.0-11.0) Red Blood Count 3.98 x10^6/uL (4.30-5.70) 4.00 x10^6/uL (4.30-5.70) Hemoglobin 13.1 g/dL (13.0-17.5) 13.0 g/dL (13.0-17.5) Hematocrit 37.5 % (39.0-53.0) 38.1 % (39.0-53.0) Mean Corpuscular Volume 94 fL (79-100) 95 fL (79-100) Mean Corpuscular Hemoglobin 33 pg (25-35) 32 pg (25-35) Mean Corpuscular Hemoglobin Concent 35 g/dL (31-37) 34 g/dL (31-37) Red Cell Distribution Width 14.2 % (11.5-14.5) 14.3 % (11.5-14.5) Platelet Count 266 x10^3/uL (140-400) 248 x10^3/uL (140-400) Neutrophils (%) (Auto) 52 % (31-73) 53 % (31-73) Lymphocytes (%) (Auto) 29 % (24-48) 27 % (24-48) Monocytes (%) (Auto) 10 % (0-9) 11 % (0-9) Eosinophils (%) (Auto) 9 % (0-3) 8 % (0-3) Basophils (%) (Auto) 1 % (0-3) 1 % (0-3) Neutrophils # (Auto) 3.7 x10^3uL (1.8-7.7) 3.5 x10^3uL (1.8-7.7) Lymphocytes # (Auto) 2.0 x10^3/uL (1.0-4.8) 1.8 x10^3/uL (1.0-4.8) Monocytes # (Auto) 0.7 x10^3/uL (0.0-1.1) 0.7 x10^3/uL (0.0-1.1) Eosinophils # (Auto) 0.6 x10^3/uL (0.0-0.7) 0.6 x10^3/uL (0.0-0.7) Basophils # (Auto) 0.1 x10^3/uL (0.0-0.2) 0.1 x10^3/uL (0.0-0.2) Sodium Level 139 mmol/L (136-145) 140 mmol/L (136-145) Potassium Level 4.2 mmol/L (3.5-5.1) 4.4 mmol/L (3.5-5.1) Chloride Level 103 mmol/L (98-107) 104 mmol/L (98-107) Carbon Dioxide Level 26 mmol/L (21-32) 26 mmol/L (21-32) Anion Gap 10 (6-14) 10 (6-14) Blood Urea Nitrogen 20 mg/dL (8-26) 22 mg/dL (8-26) Creatinine 1.2 mg/dL (0.7-1.3) 1.2 mg/dL (0.7-1.3) Estimated GFR (Cockcroft-Gault) 58.9 58.9 Glucose Level 107 mg/dL (70-99) 105 mg/dL (70-99) Calcium Level 8.7 mg/dL (8.5-10.1) 9.2 mg/dL (8.5-10.1) Laboratory Tests Test 04/13/18 17:00 04/14/18 04:15 Glucose (Fingerstick) 122 mg/dL (70-99) White Blood Count 6.7 x10^3/uL (4.0-11.0) Red Blood Count 4.00 x10^6/uL (4.30-5.70) Hemoglobin 13.0 g/dL (13.0-17.5) Hematocrit 38.1 % (39.0-53.0) Mean Corpuscular Volume 95 fL (79-100) Mean Corpuscular Hemoglobin 32 pg (25-35) Mean Corpuscular Hemoglobin Concent 34 g/dL (31-37) Red Cell Distribution Width 14.3 % (11.5-14.5) Platelet Count 248 x10^3/uL (140-400) Neutrophils (%) (Auto) 53 % (31-73) Lymphocytes (%) (Auto) 27 % (24-48) Monocytes (%) (Auto) 11 % (0-9) Eosinophils (%) (Auto) 8 % (0-3) Basophils (%) (Auto) 1 % (0-3) Neutrophils # (Auto) 3.5 x10^3uL (1.8-7.7) Lymphocytes # (Auto) 1.8 x10^3/uL (1.0-4.8) Monocytes # (Auto) 0.7 x10^3/uL (0.0-1.1) Eosinophils # (Auto) 0.6 x10^3/uL (0.0-0.7) Basophils # (Auto) 0.1 x10^3/uL (0.0-0.2) Sodium Level 140 mmol/L (136-145) Potassium Level 4.4 mmol/L (3.5-5.1) Chloride Level 104 mmol/L (98-107) Carbon Dioxide Level 26 mmol/L (21-32) Anion Gap 10 (6-14) Blood Urea Nitrogen 22 mg/dL (8-26) Creatinine 1.2 mg/dL (0.7-1.3) Estimated GFR (Cockcroft-Gault) 58.9 Glucose Level 105 mg/dL (70-99) Calcium Level 9.2 mg/dL (8.5-10.1) Medications Current Medications Nitroglycerin (Nitrostat) 0.4 mg PRN Q5MIN PRN SL CHEST PAIN; Start 04/10/18 at 17:15 Atorvastatin Calcium (Lipitor) 40 mg QHS PO Last administered on 04/13/18at 21: 15; Start 04/11/18 at 21:00 Aspirin (Ecotrin) 81 mg DAILYWBKFT PO Last administered on 04/14/18at 10:50; Start 04/12/18 at 08:00 Lisinopril (Prinivil) 10 mg DAILY PO Last administered on 04/14/18at 10:50; Start 04/11/18 at 11:00 Prochlorperazine Edisylate (Compazine) 5 mg PACU PRN PRN IV NAUSEA, MRX1; Start 04/12/18 at 07:00; Stop 04/13/18 at 06:59; Status DC Hydromorphone HCl (Dilaudid) 0.5 mg PRN Q10MIN PRN IV SEV PAIN, Second choice; Start 04/12/18 at 07:00; Stop 04/13/18 at 06:59; Status DC Lidocaine HCl (Xylocaine-Mpf 1% 2ml Vial) 2 ml PRN 1X PRN ID IV START; Start 04/12/18 at 07:00; Stop 04/13/18 at 06:59; Status Cancel Ringer's Solution 1,000 ml @ 30 mls/hr Q24H IV Last administered on 04/12/18at 08:53; Start 04/12/18 at 07:00; Stop 04/12/18 at 18:59; Status DC Morphine Sulfate (Morphine Sulfate) 1 mg PRN Q10MIN PRN IV SEVERE PAIN; Start 04/12/18 at 07:00; Stop 04/13/18 at 06:59; Status DC Fentanyl Citrate (Fentanyl 2ml Vial) 50 mcg PRN Q5MIN PRN IV MODERATE TO SEVERE PAIN; Start 04/12/18 at 07:00; Stop 04/13/18 at 06:59; Status DC Fentanyl Citrate (Fentanyl 2ml Vial) 25 mcg PRN Q5MIN PRN IV MILD PAIN; Start 04/12/18 at 07:00; Stop 04/13/18 at 06:59; Status DC Ondansetron HCl (Zofran) 4 mg PRN Q6HRS PRN IV NAUSEA/VOMITING; Start 04/12/18 at 07:00; Stop 04/13/18 at 06:59; Status DC Midazolam HCl (Versed) 2 mg PRN 1X PRN IV PRIOR TO PROCEDURE; Start 04/12/18 at 08:00; Stop 04/12/18 at 18:00; Status DC Fentanyl Citrate (Fentanyl 2ml Vial) 25 mcg PRN Q5MIN PRN IV X 2 DOSES FOR PAIN ; Start 04/12/18 at 08:00; Stop 04/12/18 at 18:00; Status Cancel Fentanyl Citrate (Fentanyl 2ml Vial) 50 mcg PRN Q5MIN PRN IV X 2 DOSES FOR PAIN ; Start 04/12/18 at 08:00; Stop 04/12/18 at 18:00; Status Cancel Ringer's Solution 1,000 ml @ 125 mls/hr Q8H IV ; Start 04/12/18 at 07:55; Stop 04/12/18 at 19:54; Status DC Lidocaine HCl (Xylocaine-Mpf 1% 2ml Vial) 2 ml 1X PRN PRN ID IV START; Start 04/12/18 at 08:00; Stop 04/12/18 at 18:00; Status DC Propofol 20 ml @ As Directed STK-MED ONCE IV ; Start 04/12/18 at 09:12; Stop at 09:13; Status DC Pantoprazole Sodium (Protonix) 40 mg DAILYAC PO Last administered on 04/14/18at 10:49; Start 04/12/18 at 11:30 Iohexol (Omnipaque 300 Mg/ml) 60 ml 1X ONCE IV Last administered on 04/12/18at 10:45; Start 04/12/18 at 10:45; Stop 04/12/18 at 10:46; Status DC Iohexol (Omnipaque 240 Mg/ml) 30 ml 1X ONCE PO Last administered on 04/12/18at 10:45; Start 04/12/18 at 10:45; Stop 04/12/18 at 10:46; Status DC Info (CONTRAST GIVEN -- Rx MONITORING) 1 each PRN DAILY PRN MC SEE COMMENTS; Start 04/12/18 at 10:45; Stop 04/14/18 at 10:44; Status Cancel Iohexol (Omnipaque 240 Mg/ml) 30 ml 1X ONCE PO ; Start 04/12/18 at 12:00; Stop 04/12/18 at 12:01; Status DC Iohexol (Omnipaque 300 Mg/ml) 60 ml 1X ONCE IV ; Start 04/12/18 at 12:00; Stop 04/12/18 at 12:01; Status DC Info (CONTRAST GIVEN -- Rx MONITORING) 1 each PRN DAILY PRN MC SEE COMMENTS; Start 04/12/18 at 12:15; Stop 04/14/18 at 12:14 Active Scripts Active Reported Lisinopril 10 Mg Tablet 10 Mg PO BID PRN Metformin Hcl 500 Mg Tablet 500 Mg PO BIDWMEALS Gemfibrozil 600 Mg Tablet 600 Mg PO BID Vitals/I & O Vital Sign - Last 24 Hours 04/13/18 04/13/18 04/13/18 04/13/18 12:00 16:00 20:00 20:00 Temp 97.7 97.8 97.7 97.8 Pulse 56 55 53 Resp 22 16 26 B/P (MAP) 103/52 (69) 112/49 (70) 110/51 (70) Pulse Ox 97 96 95 O2 Delivery Room Air Room Air Room Air Room Air 04/14/18 04/14/18 04/14/18 04/14/18 00:00 04:00 08:00 10:50 Temp 98.5 98.0 97.3 98.5 98.0 97.3 Pulse 46 52 51 51 Resp 29 27 16 B/P (MAP) 106/58 (74) 112/61 (78) 150/54 (86) 150/54 Pulse Ox 94 96 98 O2 Delivery Room Air Room Air Room Air Intake and Output 04/13/18 04/13/18 04/14/18 15:00 23:00 07:00 Intake Total 120 ml 120 ml Output Total 0 ml Balance 120 ml 120 ml 0 ml KERRIE BRENNAN MD Apr 14, 2018 11:28
--- NOTE | 2018-04-14 12:38 | PDOC3 ---
Discharge Summary Date of Admission: Apr 11, 2018 Date of Discharge: Apr 14, 2018 Follow-Up: 3-5 days Admitting Diagnosis comment: DISCHARGE DX ESOPHAGEAL CA Chief Complaint Chest pain RESOLVED History of Present Illness History of Present Illness Pt was seen and examined . He is sitting up in chair, in good spirits and wants to go home. EATING WELL Pt had chest, abdominal, (04/12) that showed a right renal lesion of 1 cm , pt will be getting either an MRI or CT w/ contrast to r/o malignancy. 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 Heme/Onc consulted to discuss next steps REVIEWED WITH PT Pt has hx AAA with thoracic aneurysm- cardio following. Follwed by Cardio, GI, Hem/onc Mild thickening at the gastroesophageal junction, may represent known malignancy Vitals Vitals Vital Signs Date Time Temp Pulse Resp B/P (MAP) Pulse Ox O2 Delivery O2 Flow Rate FiO2 04/14/18 10:50 51 150/54 04/14/18 08:00 97.3 16 98 Room Air 97.3 Physical Exam General: Alert, Oriented X3, Cooperative, No acute distress Heart: Regular rate (SR), Normal S1, Normal S2, No murmurs, Other (distnat heart sounds) Lungs: Clear, Other (no wheezes appreciated on ascultation) Abdomen: Soft, No tenderness Extremities: No cyanosis, No edema Skin: No breakdown, No significant lesion Labs LABS Interval aortobiiliac bypass graft. There is mild mural thickening at the gastroesophageal junction. Small and large bowel loops are normal in caliber without obstruction. Moderate descending and sigmoid diverticulosis without diverticulitis. Appendectomy. No retroperitoneal or mesenteric lymphadenopathy. No iliac or inguinal lymphadenopathy. Mildly distended unopacified urinary bladder, prostate and seminal vesicles are unremarkable. There are no destructive osseous lesions. There are multifocal small periumbilical and supraumbilical fat-containing ventral hernias. IMPRESSION: CHEST: 1. No evidence of thoracic metastatic disease. 2. Mild emphysema. 3. Coronary artery and aortic valvular leaflet calcifications. Abdomen and pelvis: 1. Mild thickening at the gastroesophageal junction, may represent known malignancy versus reflux esophagitis. 2. No evidence of abdominal or pelvic metastatic disease. 3. Indeterminate right renal lesion, measuring 1 cm, with internal high density which may be due to intracyst hemorrhage, though solid enhancement not excluded. CT or MRI with contrast (renal protocol) is recommended to exclude renal malignancy. Electronically signed by: Jalen Leon MD (04/12/2018 3:30 PM) [id number] Brief Hospital Course Mr. Dutton is a 77 old [sex] who presented with [ ] CONDITION AT DISCHARGE: Comment (GUARDED) Discharge Medications Current Medications Nitroglycerin (Nitrostat) 0.4 mg PRN Q5MIN PRN SL CHEST PAIN; Start 04/10/18 at 17:15 Atorvastatin Calcium (Lipitor) 40 mg QHS PO Last administered on 04/13/18at 21: 15; Start 04/11/18 at 21:00 Aspirin (Ecotrin) 81 mg DAILYWBKFT PO Last administered on 04/14/18at 10:50; Start 04/12/18 at 08:00 Lisinopril (Prinivil) 10 mg DAILY PO Last administered on 04/14/18at 10:50; Start 04/11/18 at 11:00 Prochlorperazine Edisylate (Compazine) 5 mg PACU PRN PRN IV NAUSEA, MRX1; Start 04/12/18 at 07:00; Stop 04/13/18 at 06:59; Status DC Hydromorphone HCl (Dilaudid) 0.5 mg PRN Q10MIN PRN IV SEV PAIN, Second choice; Start 04/12/18 at 07:00; Stop 04/13/18 at 06:59; Status DC Lidocaine HCl (Xylocaine-Mpf 1% 2ml Vial) 2 ml PRN 1X PRN ID IV START; Start 04/12/18 at 07:00; Stop 04/13/18 at 06:59; Status Cancel Ringer's Solution 1,000 ml @ 30 mls/hr Q24H IV Last administered on 04/12/18at 08:53; Start 04/12/18 at 07:00; Stop 04/12/18 at 18:59; Status DC Morphine Sulfate (Morphine Sulfate) 1 mg PRN Q10MIN PRN IV SEVERE PAIN; Start 04/12/18 at 07:00; Stop 04/13/18 at 06:59; Status DC Fentanyl Citrate (Fentanyl 2ml Vial) 50 mcg PRN Q5MIN PRN IV MODERATE TO SEVERE PAIN; Start 04/12/18 at 07:00; Stop 04/13/18 at 06:59; Status DC Fentanyl Citrate (Fentanyl 2ml Vial) 25 mcg PRN Q5MIN PRN IV MILD PAIN; Start 04/12/18 at 07:00; Stop 04/13/18 at 06:59; Status DC Ondansetron HCl (Zofran) 4 mg PRN Q6HRS PRN IV NAUSEA/VOMITING; Start 04/12/18 at 07:00; Stop 04/13/18 at 06:59; Status DC Midazolam HCl (Versed) 2 mg PRN 1X PRN IV PRIOR TO PROCEDURE; Start 04/12/18 at 08:00; Stop 04/12/18 at 18:00; Status DC Fentanyl Citrate (Fentanyl 2ml Vial) 25 mcg PRN Q5MIN PRN IV X 2 DOSES FOR PAIN ; Start 04/12/18 at 08:00; Stop 04/12/18 at 18:00; Status Cancel Fentanyl Citrate (Fentanyl 2ml Vial) 50 mcg PRN Q5MIN PRN IV X 2 DOSES FOR PAIN ; Start 04/12/18 at 08:00; Stop 04/12/18 at 18:00; Status Cancel Ringer's Solution 1,000 ml @ 125 mls/hr Q8H IV ; Start 04/12/18 at 07:55; Stop 04/12/18 at 19:54; Status DC Lidocaine HCl (Xylocaine-Mpf 1% 2ml Vial) 2 ml 1X PRN PRN ID IV START; Start 04/12/18 at 08:00; Stop 04/12/18 at 18:00; Status DC Propofol 20 ml @ As Directed STK-MED ONCE IV ; Start 04/12/18 at 09:12; Stop at 09:13; Status DC Pantoprazole Sodium (Protonix) 40 mg DAILYAC PO Last administered on 04/14/18at 10:49; Start 04/12/18 at 11:30 Iohexol (Omnipaque 300 Mg/ml) 60 ml 1X ONCE IV Last administered on 04/12/18at 10:45; Start 04/12/18 at 10:45; Stop 04/12/18 at 10:46; Status DC Iohexol (Omnipaque 240 Mg/ml) 30 ml 1X ONCE PO Last administered on 04/12/18at 10:45; Start 04/12/18 at 10:45; Stop 04/12/18 at 10:46; Status DC Info (CONTRAST GIVEN -- Rx MONITORING) 1 each PRN DAILY PRN MC SEE COMMENTS; Start 04/12/18 at 10:45; Stop 04/14/18 at 10:44; Status Cancel Iohexol (Omnipaque 240 Mg/ml) 30 ml 1X ONCE PO ; Start 04/12/18 at 12:00; Stop 04/12/18 at 12:01; Status DC Iohexol (Omnipaque 300 Mg/ml) 60 ml 1X ONCE IV ; Start 04/12/18 at 12:00; Stop 04/12/18 at 12:01; Status DC Info (CONTRAST GIVEN -- Rx MONITORING) 1 each PRN DAILY PRN MC SEE COMMENTS; Start 04/12/18 at 12:15; Stop 04/14/18 at 12:14; Status DC Active Scripts Active Reported Lisinopril 10 Mg Tablet 10 Mg PO BID PRN Metformin Hcl 500 Mg Tablet 500 Mg PO BIDWMEALS Gemfibrozil 600 Mg Tablet 600 Mg PO BID Vital Signs Vital Signs Date Time Temp Pulse Resp B/P (MAP) Pulse Ox O2 Delivery O2 Flow Rate FiO2 04/14/18 10:50 51 150/54 04/14/18 08:00 97.3 16 98 Room Air 97.3 Labs Laboratory Tests Test 04/12/18 17:41 04/13/18 03:10 04/13/18 17:00 04/14/18 04:15 Glucose (Fingerstick) 196 mg/dL (70-99) 122 mg/dL (70-99) White Blood Count 7.1 x10^3/uL (4.0-11.0) 6.7 x10^3/uL (4.0-11.0) Red Blood Count 3.98 x10^6/uL (4.30-5.70) 4.00 x10^6/uL (4.30-5.70) Hemoglobin 13.1 g/dL (13.0-17.5) 13.0 g/dL (13.0-17.5) Hematocrit 37.5 % (39.0-53.0) 38.1 % (39.0-53.0) Mean Corpuscular Volume 94 fL (79-100) 95 fL (79-100) Mean Corpuscular Hemoglobin 33 pg (25-35) 32 pg (25-35) Mean Corpuscular Hemoglobin Concent 35 g/dL (31-37) 34 g/dL (31-37) Red Cell Distribution Width 14.2 % (11.5-14.5) 14.3 % (11.5-14.5) Platelet Count 266 x10^3/uL (140-400) 248 x10^3/uL (140-400) Neutrophils (%) (Auto) 52 % (31-73) 53 % (31-73) Lymphocytes (%) (Auto) 29 % (24-48) 27 % (24-48) Monocytes (%) (Auto) 10 % (0-9) 11 % (0-9) Eosinophils (%) (Auto) 9 % (0-3) 8 % (0-3) Basophils (%) (Auto) 1 % (0-3) 1 % (0-3) Neutrophils # (Auto) 3.7 x10^3uL (1.8-7.7) 3.5 x10^3uL (1.8-7.7) Lymphocytes # (Auto) 2.0 x10^3/uL (1.0-4.8) 1.8 x10^3/uL (1.0-4.8) Monocytes # (Auto) 0.7 x10^3/uL (0.0-1.1) 0.7 x10^3/uL (0.0-1.1) Eosinophils # (Auto) 0.6 x10^3/uL (0.0-0.7) 0.6 x10^3/uL (0.0-0.7) Basophils # (Auto) 0.1 x10^3/uL (0.0-0.2) 0.1 x10^3/uL (0.0-0.2) Sodium Level 139 mmol/L (136-145) 140 mmol/L (136-145) Potassium Level 4.2 mmol/L (3.5-5.1) 4.4 mmol/L (3.5-5.1) Chloride Level 103 mmol/L (98-107) 104 mmol/L (98-107) Carbon Dioxide Level 26 mmol/L (21-32) 26 mmol/L (21-32) Anion Gap 10 (6-14) 10 (6-14) Blood Urea Nitrogen 20 mg/dL (8-26) 22 mg/dL (8-26) Creatinine 1.2 mg/dL (0.7-1.3) 1.2 mg/dL (0.7-1.3) Estimated GFR (Cockcroft-Gault) 58.9 58.9 Glucose Level 107 mg/dL (70-99) 105 mg/dL (70-99) Calcium Level 8.7 mg/dL (8.5-10.1) 9.2 mg/dL (8.5-10.1) Laboratory Tests Test 04/13/18 17:00 04/14/18 04:15 Glucose (Fingerstick) 122 mg/dL (70-99) White Blood Count 6.7 x10^3/uL (4.0-11.0) Red Blood Count 4.00 x10^6/uL (4.30-5.70) Hemoglobin 13.0 g/dL (13.0-17.5) Hematocrit 38.1 % (39.0-53.0) Mean Corpuscular Volume 95 fL (79-100) Mean Corpuscular Hemoglobin 32 pg (25-35) Mean Corpuscular Hemoglobin Concent 34 g/dL (31-37) Red Cell Distribution Width 14.3 % (11.5-14.5) Platelet Count 248 x10^3/uL (140-400) Neutrophils (%) (Auto) 53 % (31-73) Lymphocytes (%) (Auto) 27 % (24-48) Monocytes (%) (Auto) 11 % (0-9) Eosinophils (%) (Auto) 8 % (0-3) Basophils (%) (Auto) 1 % (0-3) Neutrophils # (Auto) 3.5 x10^3uL (1.8-7.7) Lymphocytes # (Auto) 1.8 x10^3/uL (1.0-4.8) Monocytes # (Auto) 0.7 x10^3/uL (0.0-1.1) Eosinophils # (Auto) 0.6 x10^3/uL (0.0-0.7) Basophils # (Auto) 0.1 x10^3/uL (0.0-0.2) Sodium Level 140 mmol/L (136-145) Potassium Level 4.4 mmol/L (3.5-5.1) Chloride Level 104 mmol/L (98-107) Carbon Dioxide Level 26 mmol/L (21-32) Anion Gap 10 (6-14) Blood Urea Nitrogen 22 mg/dL (8-26) Creatinine 1.2 mg/dL (0.7-1.3) Estimated GFR (Cockcroft-Gault) 58.9 Glucose Level 105 mg/dL (70-99) Calcium Level 9.2 mg/dL (8.5-10.1) Allergies Allergies Coded Allergies Type Severity Reaction Last Updated Verified No Known Drug Allergies 04/12/18 No Disposition/Orders: D/C to Home Patient Instructions D/C PLANNING 33 MIN KERRIE BRENNAN MD Apr 14, 2018 12:38
--- NOTE | 2018-04-14 12:40 | DISCH ---
DISCHARGE INSTRUCTIONS Condition on Discharge Condition on Discharge: Guarded Activity After Discharge Activity Instructions for Disc: Activity as tolerated Lifting Instructions after Dis: No heavy lifting, No pulling or pushing Exercise Instruction after Dis: Walk 10 min, 3 x per day Driving Instructions after Dis: Do not drive Diet after Discharge Diet after Discharge: Cardiac Diet Texture: Mechanically Altered Checks after Discharge Checks after discharge: Check blood press - daily Contacting the DRPio after DC Call your doctor for: If your condition worsens Warfarin Follow-Up Warfarin Follow UP: CALL DR AKHTAR FOR APPT [facility] FOR [facility] PET SCAN KERRIE BRENNAN MD Apr 14, 2018 12:40
[2018-04-14] MEDS ORDERED: ATOR40TA59 PO (12:42)
[2018-04-14] MEDS ORDERED: Pantoprazole PO (12:42)
[2018-04-14] MEDS ORDERED: NITR0.4T SL (12:42)
== END 2018-04-14 15:00 | disposition home or self-care (01) | DRG 376 ==
LOC: ER 16:44 → 1 WEST ICU 19:45 → OBSVTOIN 04-11 13:37 → 5 NORTH 04-14 07:34
PROVIDERS: ADMIT Internal Medicine; ATTEND Internal Medicine
PROC: 0DB48ZX Excision of Esophagogastric Junction, Via Natural or Artificial Opening Endoscopic, Diagnostic (ICD-10-PCS; principal; 2018-04-12 10:00)
DX: C15.9 Malignant neoplasm of esophagus, unspecified (principal); K22.9 Disease of esophagus, unspecified; K29.80 Duodenitis without bleeding; K57.90 Diverticulosis of intestine, part unspecified, without perforation or abscess without bleeding; I71.2 Thoracic aortic aneurysm, without rupture; I71.4 Abdominal aortic aneurysm, without rupture; I10 Essential (primary) hypertension; E78.5 Hyperlipidemia, unspecified; K21.9 Gastro-esophageal reflux disease without esophagitis; M19.90 Unspecified osteoarthritis, unspecified site; F17.210 Nicotine dependence, cigarettes, uncomplicated; E78.00 Pure hypercholesterolemia, unspecified; Z80.1 Family history of malignant neoplasm of trachea, bronchus and lung; Z82.49 Family history of ischemic heart disease and other diseases of the circulatory system; Z86.79 Personal history of other diseases of the circulatory system; Z86.010 Personal history of colon polyps
CPT/HCPCS: 36415; 43239; 71045; 71260; 74177; 80048; 80053; 80061; 82962; 83690; 83735; 83880; 84484; 85025; 87641; 88305; 93005; 93306; G0378; G0379; J2704; J7120; Q9966; Q9967; 97535; 99285-25

== ENCOUNTER 2018-05-16 08:23 | Outpatient (CLI) | payer MEDICARE ==
[2018-05-16] VITALS (7 sets, daily range): BP systolic 140–173; BP diastolic 62–94
[~2018-05-16] VITALS: Ht 162.6 cm; Wt 74.4 kg
[~2018-05-16 08:23] MED LIST: ATOR40TA59 PO; GEMF600T8 PO; LISI10TA2 PO; METF500T16 PO; NITR0.4T SL; Pantoprazole PO
[2018-05-16] MEDS ORDERED: PROM118S5 PO (08:49)
[2018-05-16 08:57] LABS: BASO # 0.1 x10^3/uL (0.0-0.2); BASO % 1 % (0-3); EOS # 0.4 x10^3/uL (0.0-0.7); EOS % 6 % (0-3); HEMATOCRIT 40.6 % (39.0-53.0); HEMOGLOBIN 14.1 g/dL (13.0-17.5); LYMPH # 1.8 x10^3/uL (1.0-4.8); LYMPH % 29 % (24-48); MEAN CORPUSCULAR HEMOGLOBIN 33 pg (25-35); MEAN CORPUSCULAR HGB CONC 35 g/dL (31-37); MEAN CORPUSCULAR VOLUME 94 fL (79-100); MONO # 0.7 x10^3/uL (0.0-1.1); MONO % 10 % (0-9); NEUT # 3.5 x10^3uL (1.8-7.7); NEUT % 54 % (31-73); PLATELET COUNT 247 x10^3/uL (140-400); RED CELL DISTRIBUTION WIDTH 13.6 % (11.5-14.5); WHITE BLOOD COUNT 6.4 x10^3/uL (4.0-11.0)
[2018-05-16 09:03] LABS: PROTHROMBIN TIME PATIENT 13.6 SEC (11.7-14.0)
[2018-05-16] MEDS ORDERED: LIDOCAINE 1%/EPI 1:100,000 20 ML VIAL. ONE (09:09)
[2018-05-16] MEDS ORDERED: MIDAZOLAM HCL/PF 2 MG/2 ML VIAL. ONE (09:20)
[2018-05-16] MEDS ORDERED: fentaNYL PF VIAL 100 MCG/2 ML VIAL ONE (09:21)
[2018-05-16] MEDS ORDERED: fentaNYL PF VIAL 100 MCG/2 ML VIAL IV ONE (09:45)
[2018-05-16] MEDS ORDERED: MIDAZOLAM HCL/PF 2 MG/2 ML VIAL. IV ONE (09:45)
[2018-05-16] MEDS ORDERED: LIDOCAINE 1%/EPI 1:100,000 20 ML VIAL. IJ ONE (10:00)
--- NOTE | 2018-05-16 11:14 | NUR ---
Discharge Note: JANELL HOLMAN Discharge instructions and discharge home medications reviewed with Patient and a copy given. All questions have been answered and understanding verbalized. The following instructions and handouts were given: adult moderate sedation and implanted port info. Discontinued lines and drains: Peripheral IV intact. Patient discharged to Home or Self Care withSpousevia Wheelchair
--- NOTE | 2018-05-16 11:28 | RAD ---
Procedure: Ultrasound and fluoroscopically guided placement of right internal jugular power port.. 05/16/2018 11:23 AM Clinical Indication: CANCER TREATMENT Sedation: Conscious sedation was administered for 30 minutes. The patient was monitored by a qualified independent observer throughout the time of sedation. Please refer to the medical record for exact doses of medications utilized to achieve moderate sedation. Fluoroscopy time: 0.2 MIN Dose area product: 1 GYCM2 Consent: The procedure was explained in its entirety to the patient or the patients designated publications sales representative by a member of the treatment team, including a discussion of the risks, benefits and commonly accepted alternatives to the procedure, as well as the expected consequences of no therapy whatsoever. Discussion of the risks included, but was not limited to, those that are most frequent and those that are rare but possibly severe or life-threatening, as well as the possibility of unforeseen complications. Technique and Findings: All elements of maximal sterile barrier technique including the use of a cap, mask, sterile gown, sterile gloves, large sterile sheet, appropriate hand hygiene, and 2% chlorhexidine for cutaneous antisepsis (or acceptable alternative antiseptic per current guidelines) were followed for this procedure. Following informed consent, and a timeout procedure, the patient was prepped and draped in the usual sterile fashion. Ultrasound interrogation of the right neck revealed patency and compressibility of the right internal jugular vein. A 21-gauge micropuncture was then used to gain access to this vein under ultrasound guidance. A hard copy ultrasound image was recorded. The needle was exchanged over a wire for a sheath. A 1 inch incision was made several centimeters inferior to the venotomy site. A catheter was tunneled from this site dermatotomy site in the neck. Catheter was advanced through peel-away sheath such that its tip was in the proximal right atrium with the patient supine. The catheter was trimmed to length and connected to the port reservoir. The port was found to flush and aspirate normally. The wound was closed in layers using 4-0 Vicryl suture. Sterile dressings were applied. Impression: Successful ultrasound and fluoroscopically guided placement of a right internal jugular PowerPort
== END 2018-05-16 11:22 | disposition home or self-care (01) ==
LOC: INTRAD 08:23
PROVIDERS: ATTEND Internal Medicine Hematology & Oncology
DX: C16.0 Malignant neoplasm of cardia (principal); Z79.899 Other long term (current) drug therapy; Z79.01 Long term (current) use of anticoagulants
CPT/HCPCS: 36415; 36561; 76937; 77001; 85025; 85610; 85730; 99152; 99153; C1751; C1892; J0690; J2250; J3010; J3490

== ENCOUNTER → 2018-05-26 | Outpatient (CLI) | payer MEDICARE ==
[2018-05-16 11:00] VITALS: BP 142/62
[~2018-05-26] MED LIST changes: +PROM118S5 PO; +REGADENOSON 0.4 MG/5 ML DISP.SYRIN. IV ONE
--- NOTE | 2018-05-26 12:02 | RAD ---
MR#: [id number] Date of Study: 05/26/2018 Ordering Physician: DENISHA GALVIN Referring Physician: TASHA STEELE Tech: JOSE Blair APPROVED REPORT Test Type: Pharmacological Stress Nurse/Tech: Violetta Carter R.N./Mercy Negrete RN Test Indications: Chest Pain Cardiac History: Diabetes, Hypertension Medications: See Electronic Medical Record Medical History: See Electronic Medical Record Resting ECG: SB Resting Heart Rate: 52 bpm Resting Blood Pressure: 157/71mmHg Pretest Chest Pain: No chest pain Nurse/Tech Notes S1S2, Lungs CTA Consent: The procedure was explained to the patient in lay terms. Informed consent was witnessed. Tereso eout was entered into [employer]. History and Stress Test performed by Violetta Carter R.N./Mercy lechuga RN Pharm. Details Pharmacologic stress testing was performed using 0.4mg per 5ml of regadenoson given intravenously ove r 7-10 seconds. Stress Symptoms Dyspnea, Cough POST EXERCISE Reason for Termination: Infusion complete Max HR: 106 bpm Max Blood Pressure: 174/85mmHg Blood Pressure response to exercise: Normal blood pressure response during stress. Chest Pain: No. Arrhythmia: No. ST Change: No. INTERPRETATION Stress EKG Conclusion: Baseline EKG showed sinus rhythm. No ischemic changes at peak stress. No arr hythmias. Imaging Protocol IMAGE PROTOCOL: Rest Tc-99m/stress Tc-99m 1 day Rest: Stress: Viability: Radiopharm.Tc99m CrylmvzfmYk76x Sestamibi Dose11.6mCi 32mCi Duration 15min. 13min. Img Date 05/26/2018 05/26/2018 Inj-Img Yrfj51mno. 60min. Rest Admin Site:IV R CHEST PORTAdministrator:JOSE Blair Stress Admin Site: IV R CHEST PORTAdministrator: TASHA CornejoTCB, ARRT (R)(N) STRESS DATA End Diast. Vol.81.0mlLVEDV index BSA44.0ml End Syst. Vol.33.0mlLVESV index BSA18.0ml Myocardial Crir615.0gEject. Ppgcgkfg56.0% Stress Scores Regional WT1.00Summed WT23.00 Regional WM1.00Summed WM9.00 LV Perfusion Scintigraphic images showed small reversible defect involving the apical wall consistent with ischemi a. Wall Motion Normal left ventricle systolic function with ejection fraction calculated at 59%. LV Perf. Quant 17 Seg. SSS4.00 17 Seg. SRS3.00 17 Seg. SDS1.00 Stress Defect Extent (% LAD)0.00Rest Defect Extent (% LAD)1.30Rev. Defect Extent (% LAD)0.00 Stress Defect Extent (% LCX) 16.30Rest Defect Extent (% LCX)11.30Rev. Defect Extent (% LCX)16.30 Stress Defect Extent (% RCA)0.00Rest Defect Extent (% RCA)0.00Rev. Defect Extent (% RCA)0.00 Stress Defect Extent (% RIGOBERTO)5.90Rest Defect Extent (% RIGOBERTO)6.10Rev. Defect Extent (% RIGOBERTO)4.10 Conclusion 1. Regadenoson cardioisotope stress test showed small amount of apical wall ischemia. 2. Normal left ventricular systolic function with ejection fraction calculated at 59%. 3. Low to intermediate risk for cardiac events. Signed by : Denisha Galvin, Electronically Approved : 05/26/2018 12:00:39
== END | disposition home or self-care (01) ==
LOC: NM 08:55
PROVIDERS: ATTEND Internal Medicine Cardiovascular Disease
DX: R07.9 Chest pain, unspecified (principal); R05 Cough
CPT/HCPCS: 78452; 93017; 96374; A9500; J2785

== ENCOUNTER 2018-06-16 10:25 | Outpatient (CLI) | payer MEDICARE ==
[~2018-06-16] VITALS: Ht 162.6 cm; Wt 73.0 kg
[2018-06-16] VITALS (17 sets, daily range): BP systolic 123–166; BP diastolic 64–81
[~2018-06-16 10:25] MED LIST changes: -REGADENOSON 0.4 MG/5 ML DISP.SYRIN. IV ONE
[2018-06-16] MEDS ORDERED: ONDA8TAB9 PO (10:49)
[2018-06-16] MEDS ORDERED: DEXT30SU19 PO (10:50)
[2018-06-16 11:05] LABS: HEMATOCRIT 36.6 % (39.0-53.0); HEMOGLOBIN 12.3 g/dL (13.0-17.5); RED BLOOD COUNT 3.91 x10^6/uL (4.30-5.70); RED CELL DISTRIBUTION WIDTH 13.7 % (11.5-14.5); WHITE BLOOD COUNT 3.1 x10^3/uL (4.0-11.0)
[2018-06-16 11:14] LABS: CALCIUM 8.9 mg/dL (8.5-10.1); CREATININE 1.1 mg/dL (0.7-1.3); GFR 64.9; POTASSIUM 4.3 mmol/L (3.5-5.1)
[2018-06-16 11:15] LABS: PROTHROMBIN TIME PATIENT 13.2 SEC (11.7-14.0)
[2018-06-16] MEDS ORDERED: LIDOCAINE 1% PF 2 ML VIAL. ONE (12:46)
[2018-06-16] MEDS ORDERED: MIDAZOLAM HCL/PF 2 MG/2 ML VIAL. ONE (12:50)
[2018-06-16] MEDS ORDERED: VERAPAMIL 5 MG/2 ML VIAL. ONE (12:50)
[2018-06-16] MEDS ORDERED: fentaNYL PF VIAL 100 MCG/2 ML VIAL ONE (12:50)
[2018-06-16] MEDS ORDERED: HEPARIN for IV BOLUS 10,000 UNIT/10 ML VIAL. ONE (12:51)
[2018-06-16] MEDS ORDERED: NITROGLYCERIN 200 MCG/2 ML SYRINGE FOR CATH/VASC LAB. ONE (12:51)
[2018-06-16] MEDS ORDERED: VERAPAMIL 5 MG/2 ML VIAL. IART ONE (13:15)
[2018-06-16] MEDS ORDERED: CONTRAST GIVEN. MC PRN (13:15)
[2018-06-16] MEDS ORDERED: NITROGLYCERIN 200 MCG/2 ML SYRINGE FOR CATH/VASC LAB. IART ONE (13:15)
[2018-06-16] MEDS ORDERED: IODIXANOL 320 MG/ML 100 ML VIAL. IART ONE (13:15)
[2018-06-16] MEDS ORDERED: MIDAZOLAM HCL/PF 2 MG/2 ML VIAL. IV ONE (13:15)
[2018-06-16] MEDS ORDERED: HEPARIN for IV BOLUS 10,000 UNIT/10 ML VIAL. IART ONE (13:15)
[2018-06-16] MEDS ORDERED: LIDOCAINE 1% PF 2 ML VIAL. INJ ONE (13:15)
[2018-06-16] MEDS ORDERED: fentaNYL PF VIAL 100 MCG/2 ML VIAL IV ONE (13:15)
[2018-06-16] MEDS ORDERED: IV 1/2 NORMAL SALINE 1,000 ML IV SCH (13:41)
--- NOTE | 2018-06-16 13:41 | PDOC ---
MODERATE SEDATION ASSESSMENT RISKS/ALTERNATIVES Risks/Alternatives Risks and alternatives of this type of sedation and procedure discussed with: RISK/ALTERNATIVES: Patient H & P ON CHART H & P H & P on chart and reviewed for co-morbid conditions and appropriate labs. H&P ON CHART: Yes STATUS PREG STATUS ASSESSED: N/A MEDS/ALLERGIES REVIEWED Meds/Allergies Reviewed Medications and Allergies including time and route of recently administered narcotics and sedatives. MEDS/ALLERGIES REVIEWED: Yes ASA RATING ASA RATING: III AIRWAY ASSESSMENT Airway Assessment Airway patency, oral function limitations, presence of caps, crowns, dentures, partials, and ability to extend neck assessed. AIRWAY ASSESSMENT: Yes MALLAMPATI SCORE MALLAMPATI SCORE: II PRE-SEDATION ASSESSMENT PRE-SEDATION ASSESSMENT: Yes DENISHA GALVIN MD Jun 16, 2018 13:41
[2018-06-16] MEDS ORDERED: NITROGLYCERIN SUBLINGUAL 0.4 MG BOTTLE OF 25. SL PRN (13:45)
--- NOTE | 2018-06-16 13:46 | CARD ---
MR#: [id number] Date of Study: 06/16/2018 Ordering Physician: DENISHA GALVIN, Referring Physician: Eugene STEELE: HOLLEY LUCIA RTR APPROVED REPORT Technologist: HOLLEY LUCIA RTR Nurse: Rhina Nicole R.N. Procedure(s) performed: Left heart catheterization and selective coronary angiography via right trans radial approach Moderate sedation: 27 min INDICATION The indication(s) include : Chest pain and positive stress test. [facility] Clinical Frailty Scale [facility] Clinical Frailty Scale: Mildly Frail Heart Failure Heart Failure: No PROCEDURE NARRATIVE After explaining the risks, benefits and alternative options, informed consent was obtained from magdalena ent. Patient was brought to the cardiac Superintendent Refuse Disposal and right wrist was prepped and draped in the usual fashion after confirming a positive modified Jayy's test. Arterial access was obtained in the righ t radial artery and a 6 [place] sheath was inserted. 6 [place] Carlo and 6 [place] JL 3.5 catheters we re used to perform selective angiography of the right and left coronary arteries. Left ventriculograp hy was not performed due to availability of recent 2-D echo. Patient tolerated the procedure well. H emostasis was achieved using TR band. There were no immediate complications. The following findings were noted. FINDINGS Coronary angiography: a. The left main coronary artery arose from the left sinus of Valsalva, gave rise to the left anteri or descending and left circumflex arteries and showed 20% stenosis in the ostial segment. b. The left anterior descending artery did not show any significant stenosis. c. The left circumflex artery did not show any significant stenosis. d. The right coronary artery was a dominant vessel arising from the right sinus of Valsalva that willam wed 30% stenosis in the midsegment. Conclusion No significant coronary artery disease Signed by : Denisha Galvin, Electronically Approved : 06/16/2018 13:44:37
--- NOTE | 2018-06-16 17:19 | NUR ---
Discharge Note: JS HOLMAN Discharge instructions and discharge home medications reviewed with Patient and son, a copy given. All questions have been answered and understanding verbalized. The following instructions and handouts were given: Moderate sedation and radial site care. Discontinued lines and drains: PortaCath deaccessed from right chest with no complications. Patient discharged to home with son via wheelchair to private vehicle. Patient ate a meal and drank fluids with no difficulty.
== END 2018-06-16 17:20 | disposition home or self-care (01) ==
LOC: CCL 10:25
PROVIDERS: ATTEND Internal Medicine Cardiovascular Disease
DX: I25.10 Atherosclerotic heart disease of native coronary artery without angina pectoris (principal); R94.39 Abnormal result of other cardiovascular function study; E11.9 Type 2 diabetes mellitus without complications; Z79.84 Long term (current) use of oral hypoglycemic drugs; Z79.899 Other long term (current) drug therapy
CPT/HCPCS: 36415; 80048; 85027; 85610; 93454; C1769; C1892; J1644; J2250; J3010; J3490; 99152; 99153

== ENCOUNTER 2018-06-24 11:59 | Inpatient (IN) | payer MEDICARE ==
[~2018-06-24] VITALS: Ht 162.6 cm; Wt 70.4 kg
[~2018-06-24 11:59] MED LIST changes: +DEXT30SU19 PO; +ONDA8TAB9 PO
[2018-06-24] MEDS ORDERED: LIDO:MAALOX 1:1 20 ML SINGLE DOSE. SWSW ONE (12:45)
[2018-06-24] MEDS ORDERED: MORPHINE SULFATE 10 MG/ML VIAL. IV ONE (12:45)
[2018-06-24 12:50] LABS: BASO % 1 % (0-3); EOS % 0 % (0-3); HEMATOCRIT 41.5 % (39.0-53.0); HEMOGLOBIN 13.8 g/dL (13.0-17.5); LYMPH # 0.2 x10^3/uL (1.0-4.8); LYMPH % 13 % (24-48); MEAN CORPUSCULAR HEMOGLOBIN 31 pg (25-35); MEAN CORPUSCULAR HGB CONC 33 g/dL (31-37); MEAN CORPUSCULAR VOLUME 94 fL (79-100); MONO # 0.1 x10^3/uL (0.0-1.1); MONO % 6 % (0-9); NEUT % 80 % (31-73); PLATELET COUNT 138 x10^3/uL (140-400); RED BLOOD COUNT 4.44 x10^6/uL (4.30-5.70); RED CELL DISTRIBUTION WIDTH 14.1 % (11.5-14.5)
[2018-06-24 12:59] LABS: WHITE BLOOD COUNT 1.3 x10^3/uL (4.0-11.0)
[2018-06-24 13:08] LABS: CALCIUM 9.4 mg/dL (8.5-10.1); CREATININE 1.1 mg/dL (0.7-1.3); GFR 64.9; POTASSIUM 4.7 mmol/L (3.5-5.1)
--- NOTE | 2018-06-24 13:08 | RAD ---
EXAM: CHEST 1 VIEW History: Chest pain COMPARISON: 04/10/2018 TECHNIQUE: Single portable radiograph of the chest FINDINGS: The cardiac silhouette is unremarkable. The lungs are clear bilaterally. Right-sided Port-A-Cath is identified. IMPRESSION: No radiographic evidence of an acute cardiopulmonary process. Electronically signed by: Thanh Leslie MD (06/24/2018 1:05 PM) [facility]
[2018-06-24 13:14] LABS: ALBUMIN 3.2 g/dL (3.4-5.0); ALBUMIN/GLOBULIN RATIO 0.8 (1.0-1.7); MAGNESIUM 1.8 mg/dL (1.8-2.4); TOTAL BILIRUBIN 0.7 mg/dL (0.2-1.0); TOTAL PROTEIN 7.1 g/dL (6.4-8.2)
[2018-06-24 13:22] LABS: CREATINE KINASE 49 U/L (39-308)
[2018-06-24 15:04] LABS: % ATYL 2 % (0-0); % BANDS 15 % (0-9); % EOS 1 % (0-5); % LYMPHS 9 % (24-48)
[2018-06-24 15:06] LABS: % MONOS 1 % (0-10); % MYELOS 1 % (0-0); % SEGS 71 % (35-66); PLT ESTIMATE ADEQUATE (ADEQUATE); TOXIC VACUOLATION SLIGHT
--- NOTE | 2018-06-24 15:59 | PDOC1 ---
History and Physical Date of Admission Date of Admission DATE: 06/24/18 TIME: 15:54 Identification/Chief Complaint Chief Complaint painful swallowing, chest pain, cough Source Source: Caregiver, Chart review, Patient History of Present Illness History of Present Illness 78 male, previous ex-smoker but since diagnosis of esophageal cancer, has stopped smoking. Esophageal cancer currently on chemotherapy by Dr. Jasson Dillard and radiation therapy by Dr. Nash, 3 days short of completing 5 weeks total duration of radiation. Having odynophagia and chest pain and shortness of breath and some cough. Past medical history also significant for diabetes on OHA and hypertension and dyslipidemia. Chest x-ray shows normal findings. 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 Agreeable to be admitted. Labs remarkable for mildly low platelets 138 but no bleeding, neutropenia 1.3. Hemoglobin is stable at 13.8. Past surgical history is only appendectomy Nontoxic-appearing but is coughing in between the interview FUll code, lidocaine SW SW about to be given Past Medical History Cardiovascular: HTN, Hyperlipidemia Pulmonary: No pertinent hx CENTRAL NERVOUS SYSTEM: Other GI: GERD Hepatobiliary: No pertinent hx Psych: No pertinent hx Musculoskeletal: Osteoarthritis Rheumatologic: No pertinent hx Infectious disease: No pertinent hx Renal/: No pertinent hx Endocrine: Diabetes Past Surgical History Past Surgical History: Appendectomy, Other Family History Family History: Hypertension Social History Smoke: Quit ALCOHOL: none Drugs: None Current Medications Current Medications Current Medications Multi-Ingredient Mouthwash/Gargle (Gi Cocktail) 20 ml 1X ONCE SWSW Last administered on 06/24/18at 13:11; Start 06/24/18 at 12:45; Stop 06/24/18 at 12:46 ; Status DC Morphine Sulfate (Morphine Sulfate) 5 mg 1X ONCE IV Last administered on at 14:34; Start 06/24/18 at 12:45; Stop 06/24/18 at 12:46; Status DC Lidocaine HCl (Viscous Lidocaine) 15 ml PRN Q4HRS PRN SWSW MOUTH PAIN; Start at 16:00; Status UNV Albuterol/ Ipratropium (Duoneb) 3 ml RTQID NEB ; Start 06/24/18 at 16:00; Status UNV Guaifenesin (Robitussin Dm) 10 ml QID PO ; Start 06/24/18 at 17:00; Status UNV Diphenhydramine HCl (Benadryl Oral Elixir) 25 mg QHS PRN PO sleep; Start at 16:00; Status UNV Morphine Sulfate (Morphine Sulfate) 1 mg PRN Q2HR PRN IV PAIN; Start 06/24/18 at 16:00; Status UNV Acetaminophen/ Codeine Phosphate (Tylenol/Codeine Soln) 5 ml PRN Q6HRS PRN PO pain; Start 06/24/18 at 16:00; Status UNV Active Scripts Active Nitrostat (Nitroglycerin) 0.4 Mg Tab.subl 0.4 Mg SL PRN Q5MIN PRN 30 Days Atorvastatin Calcium 40 Mg Tablet 40 Mg PO QHS 28 Days [Pantoprazole] 40 MG Tablet.dr 40 Mg PO DAILYAC 30 Days Reported Delsym (Dextromethorphan Polistirex) 30 Mg/5 Ml Nola.er.12h 30 Mg PO BID Zofran (Ondansetron Hcl) 8 Mg Tablet 8 Mg PO BID PRN Promethazine-Codeine Syrup (Promethazine Hcl/Codeine) 118 Ml Syrup 5 Ml PO Q4- 6HRS Lisinopril 10 Mg Tablet 10 Mg PO BID PRN Metformin Hcl 500 Mg Tablet 500 Mg PO BIDWMEALS Allergies Allergies: Coded Allergies: No Known Drug Allergies (Unverified , 06/24/18) ROS Review of System Pos for Cough, chest discomfort, odynophagia, the rest per history of present illness the rest 14 point negative Physical Exam General: Alert, Oriented X3, Cooperative, No acute distress HEENT: Atraumatic, PERRLA, EOMI Lungs: Clear to auscultation, Normal air movement Heart: S1S2, RRR, no thrills, no rubs, no gallops, no murmurs Cardiovascular: S1, S2 Abdomen: Normal bowel sounds, Soft, No tenderness, No hepatosplenomegaly, No masses Male Genitals Exam: normal genitalia, normal prostate Rectal Exam: not examined PELVIC: Nml ext genitalia Extremities: No clubbing, No cyanosis, No edema, Normal pulses, No tenderness/ swelling Skin: No rashes, No breakdown, No significant lesion Neuro: Normal gait, Normal speech, Strength at 5/5 X4 ext, Normal tone, Sensation intact, Cranial nerves 3-12 NL, Reflexes 2+ Psych/Mental Status: Mental status NL, Mood NL Vitals Vitals Vital Signs Date Time Temp Pulse Resp B/P (MAP) Pulse Ox O2 Delivery O2 Flow Rate FiO2 06/24/18 14:34 24 96 06/24/18 12:20 97.7 116 137/75 (95) Room Air 97.7 Labs Labs Laboratory Tests Test 06/24/18 12:30 White Blood Count 1.3 x10^3/uL (4.0-11.0) Red Blood Count 4.44 x10^6/uL (4.30-5.70) Hemoglobin 13.8 g/dL (13.0-17.5) Hematocrit 41.5 % (39.0-53.0) Mean Corpuscular Volume 94 fL (79-100) Mean Corpuscular Hemoglobin 31 pg (25-35) Mean Corpuscular Hemoglobin Concent 33 g/dL (31-37) Red Cell Distribution Width 14.1 % (11.5-14.5) Platelet Count 138 x10^3/uL (140-400) Neutrophils (%) (Auto) 80 % (31-73) Lymphocytes (%) (Auto) 13 % (24-48) Monocytes (%) (Auto) 6 % (0-9) Eosinophils (%) (Auto) 0 % (0-3) Basophils (%) (Auto) 1 % (0-3) Neutrophils # (Auto) 1.0 x10^3uL (1.8-7.7) Lymphocytes # (Auto) 0.2 x10^3/uL (1.0-4.8) Monocytes # (Auto) 0.1 x10^3/uL (0.0-1.1) Eosinophils # (Auto) 0.0 x10^3/uL (0.0-0.7) Basophils # (Auto) 0.0 x10^3/uL (0.0-0.2) Segmented Neutrophils % 71 % (35-66) Band Neutrophils % 15 % (0-9) Lymphocytes % 9 % (24-48) Atypical Lymphocytes % (Manual) 2 % (0-0) Monocytes % 1 % (0-10) Eosinophils % 1 % (0-5) Myelocytes % 1 % (0-0) Toxic Vacuolation Slight Platelet Estimate Adequate (ADEQUATE) Sodium Level 137 mmol/L (136-145) Potassium Level 4.7 mmol/L (3.5-5.1) Chloride Level 98 mmol/L (98-107) Carbon Dioxide Level 27 mmol/L (21-32) Anion Gap 12 (6-14) Blood Urea Nitrogen 23 mg/dL (8-26) Creatinine 1.1 mg/dL (0.7-1.3) Estimated GFR (Cockcroft-Gault) 64.9 BUN/Creatinine Ratio 21 (6-20) Glucose Level 179 mg/dL (70-99) Calcium Level 9.4 mg/dL (8.5-10.1) Magnesium Level 1.8 mg/dL (1.8-2.4) Total Bilirubin 0.7 mg/dL (0.2-1.0) Aspartate Amino Transf (AST/SGOT) 18 U/L (15-37) Alanine Aminotransferase (ALT/SGPT) 22 U/L (16-63) Alkaline Phosphatase 90 U/L (46-116) Creatine Kinase 49 U/L (39-308) Creatine Kinase MB (Mass) 0.6 ng/mL (0.0-3.6) Creatine Kinase MB Relative Index % (0-4) Troponin I Quantitative < 0.017 ng/mL (0.000-0.055) KI-Ieh-O-Type Natriuretic Peptide 178 pg/mL (0-449) Total Protein 7.1 g/dL (6.4-8.2) Albumin 3.2 g/dL (3.4-5.0) Albumin/Globulin Ratio 0.8 (1.0-1.7) Lipase 324 U/L (73-393) Thyroid Stimulating Hormone (TSH) 1.404 uIU/mL (0.358-3.74) Laboratory Tests Test 06/24/18 12:30 White Blood Count 1.3 x10^3/uL (4.0-11.0) Red Blood Count 4.44 x10^6/uL (4.30-5.70) Hemoglobin 13.8 g/dL (13.0-17.5) Hematocrit 41.5 % (39.0-53.0) Mean Corpuscular Volume 94 fL (79-100) Mean Corpuscular Hemoglobin 31 pg (25-35) Mean Corpuscular Hemoglobin Concent 33 g/dL (31-37) Red Cell Distribution Width 14.1 % (11.5-14.5) Platelet Count 138 x10^3/uL (140-400) Neutrophils (%) (Auto) 80 % (31-73) Lymphocytes (%) (Auto) 13 % (24-48) Monocytes (%) (Auto) 6 % (0-9) Eosinophils (%) (Auto) 0 % (0-3) Basophils (%) (Auto) 1 % (0-3) Neutrophils # (Auto) 1.0 x10^3uL (1.8-7.7) Lymphocytes # (Auto) 0.2 x10^3/uL (1.0-4.8) Monocytes # (Auto) 0.1 x10^3/uL (0.0-1.1) Eosinophils # (Auto) 0.0 x10^3/uL (0.0-0.7) Basophils # (Auto) 0.0 x10^3/uL (0.0-0.2) Segmented Neutrophils % 71 % (35-66) Band Neutrophils % 15 % (0-9) Lymphocytes % 9 % (24-48) Atypical Lymphocytes % (Manual) 2 % (0-0) Monocytes % 1 % (0-10) Eosinophils % 1 % (0-5) Myelocytes % 1 % (0-0) Toxic Vacuolation Slight Platelet Estimate Adequate (ADEQUATE) Sodium Level 137 mmol/L (136-145) Potassium Level 4.7 mmol/L (3.5-5.1) Chloride Level 98 mmol/L (98-107) Carbon Dioxide Level 27 mmol/L (21-32) Anion Gap 12 (6-14) Blood Urea Nitrogen 23 mg/dL (8-26) Creatinine 1.1 mg/dL (0.7-1.3) Estimated GFR (Cockcroft-Gault) 64.9 BUN/Creatinine Ratio 21 (6-20) Glucose Level 179 mg/dL (70-99) Calcium Level 9.4 mg/dL (8.5-10.1) Magnesium Level 1.8 mg/dL (1.8-2.4) Total Bilirubin 0.7 mg/dL (0.2-1.0) Aspartate Amino Transf (AST/SGOT) 18 U/L (15-37) Alanine Aminotransferase (ALT/SGPT) 22 U/L (16-63) Alkaline Phosphatase 90 U/L (46-116) Creatine Kinase 49 U/L (39-308) Creatine Kinase MB (Mass) 0.6 ng/mL (0.0-3.6) Creatine Kinase MB Relative Index % (0-4) Troponin I Quantitative < 0.017 ng/mL (0.000-0.055) DI-Bji-F-Type Natriuretic Peptide 178 pg/mL (0-449) Total Protein 7.1 g/dL (6.4-8.2) Albumin 3.2 g/dL (3.4-5.0) Albumin/Globulin Ratio 0.8 (1.0-1.7) Lipase 324 U/L (73-393) Thyroid Stimulating Hormone (TSH) 1.404 uIU/mL (0.358-3.74) VTE Prophylaxis Ordered VTE Prophylaxis Devices: Yes VTE Pharmacological Prophylaxi: Yes Assessment/Plan Assessment/Plan 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 Dillard consult (onco) Dr. Nash consult for courtesy (radiation pt) GI consult for the obvious reasons Liquid diet for now Lidocaine swish and swallow Tylenol with Codeine solution-everything solution if we can do PT OT Control pain Sliding-scale insulin Waiting for home meds Neutropenic precautions Monitor for further from thrombocytopenia and neutropenia Seen at ER FULL CODE Agreeable to my plan MANUEL OH MD Jun 24, 2018 15:59
[2018-06-24] MEDS ORDERED: ACETAMINOPHEN/CODEINE 120/12MG 5 ML SOLUTION. PO PRN (16:00)
[2018-06-24] MEDS ORDERED: diphenhydrAMINE ORAL ELIXIR 12.5 MG/5 ML ML PO PRN (16:00)
[2018-06-24] MEDS ORDERED: DEXTROSE 50% 25 GM / 50ML DISP.SYRIN. IV PRN (16:00)
[2018-06-24] MEDS ORDERED: LIDOCAINE 2% VISCOUS 15 ML SOLUTION. SWSW PRN (16:00)
[2018-06-24] MEDS ORDERED: LABETALOL 20 MG/4 ML DISP.SYRIN. IVP PRN (16:00)
[2018-06-24] MEDS ORDERED: IV 1/2 NORMAL SALINE 1,000 ML IV ONE (16:00)
[2018-06-24] MEDS: IPRATRPIUM/ALBUTEROL 0.5/2.5MG 3 ML NEBU. NEB SCH ×2 (16:10→20:27)
[2018-06-24] MEDS: guaiFENesin DM 200MG/20MG 10 ML SYRUP PO SCH ×2 (17:00→21:04)
[2018-06-24] MEDS: INSULIN LISPRO 300 UNITS/3 ML INSULN.PEN. SQ SCH (17:00)
--- NOTE | 2018-06-24 17:33 | PHYS DOC ---
Past Medical History Past Medical History: High Cholesterol, Hypertension (OLESYA MUNOZ APRN) Past Surgical History: Appendectomy, Other Additional Past Surgical Histo: AAA repair (OLESYA MUNOZ APRN) Additional Information: quit 2017, 1 ppd. Alcohol Use: None Drug Use: None (OLESYA MUNOZ APRN) Adult General Chief Complaint Chief Complaint: DIFFICULTY SWALLOWING HPI HPI Patient is a 78 year old male with history of esophageal cancer diagnosed around April 2018 who presents to the ED today complaining of 10 out of 10 epigastric pain that has been going on for couple days. Patient is a poor historian, most information is coming from the daughter. Daughter states patient just finished chemotherapy last week. He is currently undergoing radiation treatments Tuesday through Tuesday. Daughter also states patient has not had an appetite for a couple days, she states he is not tolerating much if any PO intake because of the pain. Patient denies any fever. He states he has vomited once in the last 1 week. (OLESYA MUNOZ APRN) Review of Systems Review of Systems Constitutional: Denies fever or chills [] Eyes: Denies change in visual acuity, redness, or eye pain [] HENT: Denies nasal congestion or sore throat [] Respiratory: Denies cough or shortness of breath [] Cardiovascular: No additional information not addressed in HPI [] GI: Reports epigastric abdominal pain with vomiting, denies bloody stools or diarrhea [] : Denies dysuria or hematuria [] Musculoskeletal: Denies back pain or joint pain [] Integument: Denies rash or skin lesions [] Neurologic: Denies headache, focal weakness or sensory changes [] All other systems were reviewed and found to be within normal limits, except as documented in this note. (OLESYA MUNOZ APRN) Current Medications Current Medications Current Medications Medications (Trade) Dose Ordered Sig/Mariel Start Time Stop Time Status Last Admin Dose Admin Acetaminophen/ Codeine Phosphate (Tylenol/Codeine Soln) 5 ml PRN Q6HRS PRN 06/24/18 16:00 06/28/18 19:42 DC 06/25/18 11:18 5 ML Albuterol/ Ipratropium (Duoneb) 3 ml RTQID 06/24/18 16:00 06/28/18 19:42 DC 06/28/18 11:32 3 ML Dextrose (Dextrose 50%-Water Syringe) 12.5 gm PRN Q15MIN PRN 06/24/18 16:00 06/28/18 19:42 DC Diphenhydramine HCl (Benadryl Oral Elixir) 25 mg QHS PRN 06/24/18 16:00 06/28/18 19:42 DC Labetalol HCl (Normodyne Iv Push) 10 mg PRN Q2HR PRN 06/24/18 16:00 06/28/18 19:42 DC Lidocaine HCl (Viscous Lidocaine) 15 ml PRN Q4HRS PRN 06/24/18 16:00 06/26/18 16:55 DC Morphine Sulfate (Morphine Sulfate) 1 mg PRN Q2HR PRN 06/24/18 16:00 06/28/18 19:42 DC 06/26/18 15:46 1 MG Multi-Ingredient Mouthwash/Gargle (Gi Cocktail) 20 ml 1X ONCE 06/24/18 12:45 06/24/18 12:46 DC 06/24/18 13:11 20 ML Sodium Chloride 1,000 ml @ 75 mls/hr 1X ONCE 06/24/18 16:00 06/25/18 05:19 DC 06/24/18 16:46 75 MLS/HR (ALEX BONILLA DO) Allergies Allergies Allergies Coded Allergies Type Severity Reaction Last Updated Verified No Known Drug Allergies 06/24/18 No (ALEX BONILLA DO) Physical Exam Physical Exam Constitutional: Thin appearing patient, no acute distress, non-toxic appearance. [] HENT: Normocephalic, atraumatic, bilateral external ears normal, oropharynx moist, no oral exudates, nose normal. [] Eyes: PERRLA, EOMI, conjunctiva normal, no discharge. [] Neck: Normal range of motion, no tenderness, supple, no stridor. [] Cardiovascular:Heart rate regular rhythm, no murmur [] Lungs & Thorax: Bilateral breath sounds clear to auscultation [] Abdomen: Bowel sounds normal, soft, slight epigastric tenderness, no masses, no pulsatile masses. [] Skin: Warm, dry, no erythema, no rash. [] Back: No tenderness, no CVA tenderness. [] Extremities: No tenderness, no cyanosis, no clubbing, ROM intact, no edema. [] Neurologic: Alert and oriented X 3, normal motor function, normal sensory function, no focal deficits noted. [] Psychologic: Affect normal, judgement normal, mood normal. [] (OLESYA MUNOZ APRN) Current Patient Data Vital Signs Vital Signs Date Time Temp Pulse Resp B/P (MAP) Pulse Ox O2 Delivery O2 Flow Rate FiO2 06/24/18 16:16 112 18 103/73 (83) 92 Room Air 06/24/18 12:20 97.7 97.7 (ALEX BONILLA DO) Lab Values Laboratory Tests Test 06/24/18 12:30 White Blood Count 1.3 x10^3/uL (4.0-11.0) *L Red Blood Count 4.44 x10^6/uL (4.30-5.70) Hemoglobin 13.8 g/dL (13.0-17.5) Hematocrit 41.5 % (39.0-53.0) Mean Corpuscular Volume 94 fL (79-100) Mean Corpuscular Hemoglobin 31 pg (25-35) Mean Corpuscular Hemoglobin Concent 33 g/dL (31-37) Red Cell Distribution Width 14.1 % (11.5-14.5) Platelet Count 138 x10^3/uL (140-400) L Neutrophils (%) (Auto) 80 % (31-73) H Lymphocytes (%) (Auto) 13 % (24-48) L Monocytes (%) (Auto) 6 % (0-9) Eosinophils (%) (Auto) 0 % (0-3) Basophils (%) (Auto) 1 % (0-3) Neutrophils # (Auto) 1.0 x10^3uL (1.8-7.7) L Lymphocytes # (Auto) 0.2 x10^3/uL (1.0-4.8) L Monocytes # (Auto) 0.1 x10^3/uL (0.0-1.1) Eosinophils # (Auto) 0.0 x10^3/uL (0.0-0.7) Basophils # (Auto) 0.0 x10^3/uL (0.0-0.2) Segmented Neutrophils % 71 % (35-66) H Band Neutrophils % 15 % (0-9) H Lymphocytes % 9 % (24-48) L Atypical Lymphocytes % (Manual) 2 % (0-0) H Monocytes % 1 % (0-10) Eosinophils % 1 % (0-5) Myelocytes % 1 % (0-0) H Toxic Vacuolation Slight Platelet Estimate Adequate (ADEQUATE) Sodium Level 137 mmol/L (136-145) Potassium Level 4.7 mmol/L (3.5-5.1) Chloride Level 98 mmol/L (98-107) Carbon Dioxide Level 27 mmol/L (21-32) Anion Gap 12 (6-14) Blood Urea Nitrogen 23 mg/dL (8-26) Creatinine 1.1 mg/dL (0.7-1.3) Estimated GFR (Cockcroft-Gault) 64.9 BUN/Creatinine Ratio 21 (6-20) H Glucose Level 179 mg/dL (70-99) H Calcium Level 9.4 mg/dL (8.5-10.1) Magnesium Level 1.8 mg/dL (1.8-2.4) Total Bilirubin 0.7 mg/dL (0.2-1.0) Aspartate Amino Transferase (AST) 18 U/L (15-37) Alanine Aminotransferase (ALT) 22 U/L (16-63) Alkaline Phosphatase 90 U/L (46-116) Creatine Kinase 49 U/L (39-308) Creatine Kinase MB (Mass) 0.6 ng/mL (0.0-3.6) Creatine Kinase MB Relative Index % (0-4) Troponin I Quantitative < 0.017 ng/mL (0.000-0.055) JC-Tcg-V-Type Natriuretic Peptide 178 pg/mL (0-449) Total Protein 7.1 g/dL (6.4-8.2) Albumin 3.2 g/dL (3.4-5.0) L Albumin/Globulin Ratio 0.8 (1.0-1.7) L Lipase 324 U/L (73-393) Thyroid Stimulating Hormone (TSH) 1.404 uIU/mL (0.358-3.74) Laboratory Tests 06/24/18 12:30 Laboratory Tests 06/24/18 12:30 (ALEX BONILLA DO) EKG EKG 12:[address] Bonilla sinus tachycardia, heart rate 109, no STEMI[] (OLESYA MUNOZ SYSTEMS PROTECTION TECHNICIAN) Radiology/Procedures Radiology/Procedures [] (OLESYA MUNOZ APRN) Course & Med Decision Making Course & Med Decision Making Pertinent Labs and Imaging studies reviewed. (See chart for details) This is a 78-year-old male patient presenting to the ED today with epigastric pain and poor appetite for a couple days. Patient has esophageal cancer and is currently receiving radiation treatments. Labs are negative for any acute findings. Chest x-ray is negative for any acute findings. Consulted with who accepted patient for admission (OLESYA MUNOZ APRN) Dragon Disclaimer Dragon Disclaimer This electronic medical record was generated, in whole or in part, using a voice recognition dictation system. (OLESYA MUNOZ APRN) Departure Departure Impression: Primary Impression: Epigastric abdominal pain Additional Impressions: Esophageal cancer Neutropenia Disposition: ADMITTED INPATIENT Condition: STABLE Referrals: NESTOR SALAMANCA (PCP) Scripts Lidocaine HCl (Lidocaine HCl Viscous) 15 Ml Solution 15 ML SWSW TIDACHC for sore throat for 30 Days, #450 ML 2 Refills Prov: BLUE FARRELL MD 06/28/18 Acetaminophen With Codeine (ACETAMINOPHEN-CODEINE SOLUTION) 5 Ml Solution 5 ML PO PRN Q6HRS PRN for pain for 6 Days, #60 MISC 0 Refills Prov: BLUE FARRELL MD 06/28/18 Attending Signature Attending Signature Patient is significantly neutropenic but not febrile. Hx of recent chemotherapy. Patient admitted for further evaluation and treatment. I have reviewed the PA/SECOND FLOOR OPERATOR's note and plan of care. I was available for consultation as needed during the patient's visit in the emergency department. I agree with the clinical impression, plan, and disposition. (ALEX BONILLA DO) Problem Qualifiers Additional Impressions: Esophageal cancer Malignant neoplasm of esophagus location: lower third Qualified Codes: C15.5 - Malignant neoplasm of lower third of esophagus Neutropenia Neutropenia type: secondary to cancer chemotherapy Qualified Codes: D70.1 - Agranulocytosis secondary to cancer chemotherapy; T45.1X5A - Adverse effect of antineoplastic and immunosuppressive drugs, initial encounter OLESYA MUNOZ APRN Jun 24, 2018 17:33 ALEX BONILLA DO Jul 03, 2018 14:13
[2018-06-24] MEDS ORDERED: ACETAMINOPHEN 325 MG TABLET. PO PRN (17:45)
[2018-06-24] MEDS ORDERED: MORPHINE SULFATE 4 MG/ML VIAL. IV PRN (17:45)
[2018-06-24] MEDS ORDERED: ONDANSETRON PF 4 MG/2 ML VIAL. IV PRN (17:45)
[2018-06-24 18:27] VITALS: BP 128/73
[2018-06-24 19:30] VITALS: BP 114/77
[2018-06-24 23:00] VITALS: BP 106/61
[2018-06-25 03:27] VITALS: BP 109/70
[2018-06-25 05:01] LABS: BASO % 1 % (0-3); EOS % 1 % (0-3); HEMOGLOBIN 11.9 g/dL (13.0-17.5); LYMPH # 0.1 x10^3/uL (1.0-4.8); LYMPH % 11 % (24-48); MEAN CORPUSCULAR HEMOGLOBIN 32 pg (25-35); MEAN CORPUSCULAR HGB CONC 34 g/dL (31-37); MEAN CORPUSCULAR VOLUME 93 fL (79-100); MONO # 0.1 x10^3/uL (0.0-1.1); MONO % 10 % (0-9); NEUT % 78 % (31-73); PLATELET COUNT 125 x10^3/uL (140-400); RED BLOOD COUNT 3.75 x10^6/uL (4.30-5.70); RED CELL DISTRIBUTION WIDTH 14.2 % (11.5-14.5)
[2018-06-25 05:39] LABS: WHITE BLOOD COUNT 1.2 x10^3/uL (4.0-11.0)
[2018-06-25 06:25] LABS: ALBUMIN 2.7 g/dL (3.4-5.0); ALBUMIN/GLOBULIN RATIO 0.8 (1.0-1.7); CALCIUM 8.9 mg/dL (8.5-10.1); GFR 72.5; POTASSIUM 4.8 mmol/L (3.5-5.1); TOTAL BILIRUBIN 0.7 mg/dL (0.2-1.0); TOTAL PROTEIN 6.2 g/dL (6.4-8.2)
[2018-06-25 07:00] VITALS: BP 118/61
[2018-06-25] MEDS: IPRATRPIUM/ALBUTEROL 0.5/2.5MG 3 ML NEBU. NEB SCH ×4 (07:13→20:00)
[2018-06-25] MEDS ORDERED: LIDO:MAALOX 1:1 20 ML SINGLE DOSE. PO PRN (07:30)
[2018-06-25] MEDS: INSULIN LISPRO 300 UNITS/3 ML INSULN.PEN. SQ SCH ×3 (08:00→17:00)
[2018-06-25] MEDS: guaiFENesin DM 200MG/20MG 10 ML SYRUP PO SCH ×4 (09:10→20:57)
--- NOTE | 2018-06-25 09:27 | PDOC ---
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 Odynophagia secondary to above CP sec to above Esophageal cancer, almost completing 5 weeks total radiation duration (3 sessions shy) [place] on chemo - Follows with Dr Ashleigh dillard Thrombocytopenia with no bleeding-platelets 138 Neutropenia, WBC 1.3 Hypertension controlled Diabetes on OHA History of Present Illness History of Present Illness Still throat pain GI cocktail providing some temporary relief Some high blood pressure calls last night CXR unimpressive Plan: await GI Rounds Make GI cocktail 4 times a day when necessary GI, heme aonc, radiation oncology consulted-courtesy consult the latter two as they were providing him chemotherapy and radiation therapy Home meds I have reconciled Discussed with RN Vitals Vitals Vital Signs Date Time Temp Pulse Resp B/P (MAP) Pulse Ox O2 Delivery O2 Flow Rate FiO2 06/25/18 08:00 Room Air 06/25/18 07:13 96 06/25/18 07:00 97.9 87 18 118/61 (80) 97.9 Physical Exam General: Alert, Oriented X3, Cooperative, No acute distress Lungs: Clear, Other Abdomen: Normal bowel sounds, Soft, No tenderness, No hepatosplenomegaly, No masses Extremities: No clubbing, No cyanosis, No edema, Normal pulses, No tenderness/ swelling Skin: No rashes, No breakdown, No significant lesion Labs LABS Laboratory Tests Test 06/24/18 12:30 06/24/18 16:55 06/24/18 21:03 06/25/18 04:40 White Blood Count 1.3 x10^3/uL (4.0-11.0) 1.2 x10^3/uL (4.0-11.0) Red Blood Count 4.44 x10^6/uL (4.30-5.70) 3.75 x10^6/uL (4.30-5.70) Hemoglobin 13.8 g/dL (13.0-17.5) 11.9 g/dL (13.0-17.5) Hematocrit 41.5 % (39.0-53.0) 35.0 % (39.0-53.0) Mean Corpuscular Volume 94 fL (79-100) 93 fL (79-100) Mean Corpuscular Hemoglobin 31 pg (25-35) 32 pg (25-35) Mean Corpuscular Hemoglobin Concent 33 g/dL (31-37) 34 g/dL (31-37) Red Cell Distribution Width 14.1 % (11.5-14.5) 14.2 % (11.5-14.5) Platelet Count 138 x10^3/uL (140-400) 125 x10^3/uL (140-400) Neutrophils (%) (Auto) 80 % (31-73) 78 % (31-73) Lymphocytes (%) (Auto) 13 % (24-48) 11 % (24-48) Monocytes (%) (Auto) 6 % (0-9) 10 % (0-9) Eosinophils (%) (Auto) 0 % (0-3) 1 % (0-3) Basophils (%) (Auto) 1 % (0-3) 1 % (0-3) Neutrophils # (Auto) 1.0 x10^3uL (1.8-7.7) 1.0 x10^3uL (1.8-7.7) Lymphocytes # (Auto) 0.2 x10^3/uL (1.0-4.8) 0.1 x10^3/uL (1.0-4.8) Monocytes # (Auto) 0.1 x10^3/uL (0.0-1.1) 0.1 x10^3/uL (0.0-1.1) Eosinophils # (Auto) 0.0 x10^3/uL (0.0-0.7) 0.0 x10^3/uL (0.0-0.7) Basophils # (Auto) 0.0 x10^3/uL (0.0-0.2) 0.0 x10^3/uL (0.0-0.2) Segmented Neutrophils % 71 % (35-66) Band Neutrophils % 15 % (0-9) Lymphocytes % 9 % (24-48) Atypical Lymphocytes % (Manual) 2 % (0-0) Monocytes % 1 % (0-10) Eosinophils % 1 % (0-5) Myelocytes % 1 % (0-0) Toxic Vacuolation Slight Platelet Estimate Adequate (ADEQUATE) Sodium Level 137 mmol/L (136-145) 133 mmol/L (136-145) Potassium Level 4.7 mmol/L (3.5-5.1) 4.8 mmol/L (3.5-5.1) Chloride Level 98 mmol/L (98-107) 97 mmol/L (98-107) Carbon Dioxide Level 27 mmol/L (21-32) 27 mmol/L (21-32) Anion Gap 12 (6-14) 9 (6-14) Blood Urea Nitrogen 23 mg/dL (8-26) 22 mg/dL (8-26) Creatinine 1.1 mg/dL (0.7-1.3) 1.0 mg/dL (0.7-1.3) Estimated GFR (Cockcroft-Gault) 64.9 72.5 BUN/Creatinine Ratio 21 (6-20) 22 (6-20) Glucose Level 179 mg/dL (70-99) 128 mg/dL (70-99) Calcium Level 9.4 mg/dL (8.5-10.1) 8.9 mg/dL (8.5-10.1) Magnesium Level 1.8 mg/dL (1.8-2.4) Total Bilirubin 0.7 mg/dL (0.2-1.0) 0.7 mg/dL (0.2-1.0) Aspartate Amino Transf (AST/SGOT) 18 U/L (15-37) 15 U/L (15-37) Alanine Aminotransferase (ALT/SGPT) 22 U/L (16-63) 20 U/L (16-63) Alkaline Phosphatase 90 U/L (46-116) 70 U/L (46-116) Creatine Kinase 49 U/L (39-308) Creatine Kinase MB (Mass) 0.6 ng/mL (0.0-3.6) Creatine Kinase MB Relative Index % (0-4) Troponin I Quantitative < 0.017 ng/mL (0.000-0.055) MH-Pmw-D-Type Natriuretic Peptide 178 pg/mL (0-449) Total Protein 7.1 g/dL (6.4-8.2) 6.2 g/dL (6.4-8.2) Albumin 3.2 g/dL (3.4-5.0) 2.7 g/dL (3.4-5.0) Albumin/Globulin Ratio 0.8 (1.0-1.7) 0.8 (1.0-1.7) Lipase 324 U/L (73-393) Thyroid Stimulating Hormone (TSH) 1.404 uIU/mL (0.358-3.74) Glucose (Fingerstick) 116 mg/dL (70-99) 177 mg/dL (70-99) Test 06/25/18 08:07 Glucose (Fingerstick) 136 mg/dL (70-99) Review of Systems Review of Systems Throat pain, clear cough, the rest of ROS 14 point negative Assessment and Plan Assessmemt and Plan Problems Medical Problems: (1) Epigastric abdominal pain Status: Acute (2) Esophageal cancer Status: Acute Comment Review of Relevant I have reviewed the following items erica (where applicable) has been applied. Labs Laboratory Tests Test 06/24/18 12:30 06/24/18 16:55 06/24/18 21:03 06/25/18 04:40 White Blood Count 1.3 x10^3/uL (4.0-11.0) 1.2 x10^3/uL (4.0-11.0) Red Blood Count 4.44 x10^6/uL (4.30-5.70) 3.75 x10^6/uL (4.30-5.70) Hemoglobin 13.8 g/dL (13.0-17.5) 11.9 g/dL (13.0-17.5) Hematocrit 41.5 % (39.0-53.0) 35.0 % (39.0-53.0) Mean Corpuscular Volume 94 fL (79-100) 93 fL (79-100) Mean Corpuscular Hemoglobin 31 pg (25-35) 32 pg (25-35) Mean Corpuscular Hemoglobin Concent 33 g/dL (31-37) 34 g/dL (31-37) Red Cell Distribution Width 14.1 % (11.5-14.5) 14.2 % (11.5-14.5) Platelet Count 138 x10^3/uL (140-400) 125 x10^3/uL (140-400) Neutrophils (%) (Auto) 80 % (31-73) 78 % (31-73) Lymphocytes (%) (Auto) 13 % (24-48) 11 % (24-48) Monocytes (%) (Auto) 6 % (0-9) 10 % (0-9) Eosinophils (%) (Auto) 0 % (0-3) 1 % (0-3) Basophils (%) (Auto) 1 % (0-3) 1 % (0-3) Neutrophils # (Auto) 1.0 x10^3uL (1.8-7.7) 1.0 x10^3uL (1.8-7.7) Lymphocytes # (Auto) 0.2 x10^3/uL (1.0-4.8) 0.1 x10^3/uL (1.0-4.8) Monocytes # (Auto) 0.1 x10^3/uL (0.0-1.1) 0.1 x10^3/uL (0.0-1.1) Eosinophils # (Auto) 0.0 x10^3/uL (0.0-0.7) 0.0 x10^3/uL (0.0-0.7) Basophils # (Auto) 0.0 x10^3/uL (0.0-0.2) 0.0 x10^3/uL (0.0-0.2) Segmented Neutrophils % 71 % (35-66) Band Neutrophils % 15 % (0-9) Lymphocytes % 9 % (24-48) Atypical Lymphocytes % (Manual) 2 % (0-0) Monocytes % 1 % (0-10) Eosinophils % 1 % (0-5) Myelocytes % 1 % (0-0) Toxic Vacuolation Slight Platelet Estimate Adequate (ADEQUATE) Sodium Level 137 mmol/L (136-145) 133 mmol/L (136-145) Potassium Level 4.7 mmol/L (3.5-5.1) 4.8 mmol/L (3.5-5.1) Chloride Level 98 mmol/L (98-107) 97 mmol/L (98-107) Carbon Dioxide Level 27 mmol/L (21-32) 27 mmol/L (21-32) Anion Gap 12 (6-14) 9 (6-14) Blood Urea Nitrogen 23 mg/dL (8-26) 22 mg/dL (8-26) Creatinine 1.1 mg/dL (0.7-1.3) 1.0 mg/dL (0.7-1.3) Estimated GFR (Cockcroft-Gault) 64.9 72.5 BUN/Creatinine Ratio 21 (6-20) 22 (6-20) Glucose Level 179 mg/dL (70-99) 128 mg/dL (70-99) Calcium Level 9.4 mg/dL (8.5-10.1) 8.9 mg/dL (8.5-10.1) Magnesium Level 1.8 mg/dL (1.8-2.4) Total Bilirubin 0.7 mg/dL (0.2-1.0) 0.7 mg/dL (0.2-1.0) Aspartate Amino Transf (AST/SGOT) 18 U/L (15-37) 15 U/L (15-37) Alanine Aminotransferase (ALT/SGPT) 22 U/L (16-63) 20 U/L (16-63) Alkaline Phosphatase 90 U/L (46-116) 70 U/L (46-116) Creatine Kinase 49 U/L (39-308) Creatine Kinase MB (Mass) 0.6 ng/mL (0.0-3.6) Creatine Kinase MB Relative Index % (0-4) Troponin I Quantitative < 0.017 ng/mL (0.000-0.055) NR-Hxq-J-Type Natriuretic Peptide 178 pg/mL (0-449) Total Protein 7.1 g/dL (6.4-8.2) 6.2 g/dL (6.4-8.2) Albumin 3.2 g/dL (3.4-5.0) 2.7 g/dL (3.4-5.0) Albumin/Globulin Ratio 0.8 (1.0-1.7) 0.8 (1.0-1.7) Lipase 324 U/L (73-393) Thyroid Stimulating Hormone (TSH) 1.404 uIU/mL (0.358-3.74) Glucose (Fingerstick) 116 mg/dL (70-99) 177 mg/dL (70-99) Test 06/25/18 08:07 Glucose (Fingerstick) 136 mg/dL (70-99) Laboratory Tests Test 06/24/18 12:30 06/24/18 16:55 06/24/18 21:03 06/25/18 04:40 White Blood Count 1.3 x10^3/uL (4.0-11.0) 1.2 x10^3/uL (4.0-11.0) Red Blood Count 4.44 x10^6/uL (4.30-5.70) 3.75 x10^6/uL (4.30-5.70) Hemoglobin 13.8 g/dL (13.0-17.5) 11.9 g/dL (13.0-17.5) Hematocrit 41.5 % (39.0-53.0) 35.0 % (39.0-53.0) Mean Corpuscular Volume 94 fL (79-100) 93 fL (79-100) Mean Corpuscular Hemoglobin 31 pg (25-35) 32 pg (25-35) Mean Corpuscular Hemoglobin Concent 33 g/dL (31-37) 34 g/dL (31-37) Red Cell Distribution Width 14.1 % (11.5-14.5) 14.2 % (11.5-14.5) Platelet Count 138 x10^3/uL (140-400) 125 x10^3/uL (140-400) Neutrophils (%) (Auto) 80 % (31-73) 78 % (31-73) Lymphocytes (%) (Auto) 13 % (24-48) 11 % (24-48) Monocytes (%) (Auto) 6 % (0-9) 10 % (0-9) Eosinophils (%) (Auto) 0 % (0-3) 1 % (0-3) Basophils (%) (Auto) 1 % (0-3) 1 % (0-3) Neutrophils # (Auto) 1.0 x10^3uL (1.8-7.7) 1.0 x10^3uL (1.8-7.7) Lymphocytes # (Auto) 0.2 x10^3/uL (1.0-4.8) 0.1 x10^3/uL (1.0-4.8) Monocytes # (Auto) 0.1 x10^3/uL (0.0-1.1) 0.1 x10^3/uL (0.0-1.1) Eosinophils # (Auto) 0.0 x10^3/uL (0.0-0.7) 0.0 x10^3/uL (0.0-0.7) Basophils # (Auto) 0.0 x10^3/uL (0.0-0.2) 0.0 x10^3/uL (0.0-0.2) Segmented Neutrophils % 71 % (35-66) Band Neutrophils % 15 % (0-9) Lymphocytes % 9 % (24-48) Atypical Lymphocytes % (Manual) 2 % (0-0) Monocytes % 1 % (0-10) Eosinophils % 1 % (0-5) Myelocytes % 1 % (0-0) Toxic Vacuolation Slight Platelet Estimate Adequate (ADEQUATE) Sodium Level 137 mmol/L (136-145) 133 mmol/L (136-145) Potassium Level 4.7 mmol/L (3.5-5.1) 4.8 mmol/L (3.5-5.1) Chloride Level 98 mmol/L (98-107) 97 mmol/L (98-107) Carbon Dioxide Level 27 mmol/L (21-32) 27 mmol/L (21-32) Anion Gap 12 (6-14) 9 (6-14) Blood Urea Nitrogen 23 mg/dL (8-26) 22 mg/dL (8-26) Creatinine 1.1 mg/dL (0.7-1.3) 1.0 mg/dL (0.7-1.3) Estimated GFR (Cockcroft-Gault) 64.9 72.5 BUN/Creatinine Ratio 21 (6-20) 22 (6-20) Glucose Level 179 mg/dL (70-99) 128 mg/dL (70-99) Calcium Level 9.4 mg/dL (8.5-10.1) 8.9 mg/dL (8.5-10.1) Magnesium Level 1.8 mg/dL (1.8-2.4) Total Bilirubin 0.7 mg/dL (0.2-1.0) 0.7 mg/dL (0.2-1.0) Aspartate Amino Transf (AST/SGOT) 18 U/L (15-37) 15 U/L (15-37) Alanine Aminotransferase (ALT/SGPT) 22 U/L (16-63) 20 U/L (16-63) Alkaline Phosphatase 90 U/L (46-116) 70 U/L (46-116) Creatine Kinase 49 U/L (39-308) Creatine Kinase MB (Mass) 0.6 ng/mL (0.0-3.6) Creatine Kinase MB Relative Index % (0-4) Troponin I Quantitative < 0.017 ng/mL (0.000-0.055) FC-Fzy-S-Type Natriuretic Peptide 178 pg/mL (0-449) Total Protein 7.1 g/dL (6.4-8.2) 6.2 g/dL (6.4-8.2) Albumin 3.2 g/dL (3.4-5.0) 2.7 g/dL (3.4-5.0) Albumin/Globulin Ratio 0.8 (1.0-1.7) 0.8 (1.0-1.7) Lipase 324 U/L (73-393) Thyroid Stimulating Hormone (TSH) 1.404 uIU/mL (0.358-3.74) Glucose (Fingerstick) 116 mg/dL (70-99) 177 mg/dL (70-99) Test 06/25/18 08:07 Glucose (Fingerstick) 136 mg/dL (70-99) Medications Current Medications Multi-Ingredient Mouthwash/Gargle (Gi Cocktail) 20 ml 1X ONCE SWSW Last administered on 06/24/18at 13:11; Start 06/24/18 at 12:45; Stop 06/24/18 at 12:46 ; Status DC Morphine Sulfate (Morphine Sulfate) 5 mg 1X ONCE IV Last administered on at 14:34; Start 06/24/18 at 12:45; Stop 06/24/18 at 12:46; Status DC Lidocaine HCl (Viscous Lidocaine) 15 ml PRN Q4HRS PRN SWSW MOUTH PAIN; Start at 16:00 Albuterol/ Ipratropium (Duoneb) 3 ml RTQID NEB Last administered on 06/25/18at 07:13; Start 06/24/18 at 16:00 Guaifenesin (Robitussin Dm) 10 ml QID PO Last administered on 06/25/18at 09:10; Start 06/24/18 at 17:00 Diphenhydramine HCl (Benadryl Oral Elixir) 25 mg QHS PRN PO sleep; Start at 16:00 Morphine Sulfate (Morphine Sulfate) 1 mg PRN Q2HR PRN IV PAIN; Start 06/24/18 at 16:00 Acetaminophen/ Codeine Phosphate (Tylenol/Codeine Soln) 5 ml PRN Q6HRS PRN PO pain; Start 06/24/18 at 16:00 Sodium Chloride 1,000 ml @ 75 mls/hr 1X ONCE IV Last administered on at 16:46; Start 06/24/18 at 16:00; Stop 06/25/18 at 05:19; Status DC Insulin Human Lispro (HumaLOG) 0-7 UNITS TIDWMEALS SQ ; Start 06/24/18 at 17:00 Dextrose (Dextrose 50%-Water Syringe) 12.5 gm PRN Q15MIN PRN IV SEE COMMENTS; Start 06/24/18 at 16:00 Labetalol HCl (Normodyne Iv Push) 10 mg PRN Q2HR PRN IVP HYPERTENSION, SEE COMMENTS; Start 06/24/18 at 16:00 Ondansetron HCl (Zofran) 4 mg PRN Q8HRS PRN IV NAUSEA/VOMITING Last administered on 06/24/18at 21:29; Start 06/24/18 at 17:45; Stop 06/25/18 at 17:44 Morphine Sulfate (Morphine Sulfate) 4 mg PRN Q2HR PRN IV PAIN; Start 06/24/18 at 17:45; Stop 06/25/18 at 17:44 Acetaminophen (Tylenol) 650 mg PRN Q4HRS PRN PO FEVER; Start 06/24/18 at 17:45 ; Stop 06/25/18 at 17:44 Multi-Ingredient Mouthwash/Gargle (Gi Cocktail) 20 ml PRN QID PRN PO CHEST PAIN Last administered on 06/25/18at 07:36; Start 06/25/18 at 07:30 Active Scripts Active Nitrostat (Nitroglycerin) 0.4 Mg Tab.subl 0.4 Mg SL PRN Q5MIN PRN 30 Days Atorvastatin Calcium 40 Mg Tablet 40 Mg PO QHS 28 Days [Pantoprazole] 40 MG Tablet.dr 40 Mg PO DAILYAC 30 Days Reported Delsym (Dextromethorphan Polistirex) 30 Mg/5 Ml Nola.er.12h 30 Mg PO BID PRN Zofran (Ondansetron Hcl) 8 Mg Tablet 8 Mg PO BID PRN Promethazine-Codeine Syrup (Promethazine Hcl/Codeine) 118 Ml Syrup 5 Ml PO Q4- 6HRS Lisinopril 10 Mg Tablet 10 Mg PO BID Metformin Hcl 500 Mg Tablet 500 Mg PO BIDWMEALS Vitals/I & O Vital Sign - Last 24 Hours 06/24/18 06/24/18 06/24/18 06/24/18 12:16 12:20 12:46 13:16 Temp 97.7 97.7 Pulse 112 116 106 110 Resp 20 17 25 B/P (MAP) 118/70 (86) 137/75 (95) 110/65 (80) 121/67 (85) Pulse Ox 98 99 95 96 O2 Delivery Room Air Room Air Room Air Room Air 06/24/18 06/24/18 06/24/18 06/24/18 13:46 14:16 14:34 14:46 Pulse 106 112 108 Resp 20 23 24 17 B/P (MAP) 119/64 (82) 125/70 (88) 100/65 (77) Pulse Ox 96 97 96 95 O2 Delivery Room Air Room Air Room Air 06/24/18 06/24/18 06/24/18 06/24/18 15:01 15:16 15:46 16:10 Pulse 106 104 Resp 20 16 18 B/P (MAP) 101/63 (76) 104/64 (77) Pulse Ox 98 95 94 95 O2 Delivery Room Air Room Air Room Air 06/24/18 06/24/18 06/24/18 06/24/18 16:16 16:46 17:16 17:59 Pulse 112 116 114 Resp 18 20 22 B/P (MAP) 103/73 (83) 111/70 (84) 142/58 (86) 123/70 (87) Pulse Ox 92 95 93 O2 Delivery Room Air Room Air Room Air Room Air 06/24/18 06/24/18 06/24/18 06/24/18 18:27 19:30 20:26 20:27 Temp 98.0 97.8 98.0 97.8 Pulse 110 106 Resp 18 20 B/P (MAP) 128/73 (91) 114/77 (89) Pulse Ox 97 96 O2 Delivery Room Air Room Air Room Air 06/24/18 06/25/18 06/25/1817/19 23:00 03:27 07:00 07:13 Temp 98.5 97.2 97.9 98.5 97.2 97.9 Pulse 94 84 87 Resp 18 18 18 B/P (MAP) 106/61 (76) 109/70 (83) 118/61 (80) Pulse Ox 92 93 94 96 O2 Delivery Room Air Room Air 06/25/18 08:00 O2 Delivery Room Air Intake and Output 06/24/18 06/24/18 06/25/18 15:00 23:00 07:00 Intake Total 60 ml 180 ml Balance 60 ml 180 ml MANUEL OH MD Jun 25, 2018 09:27
[2018-06-25] MEDS ORDERED: DEXTROMETHORPHAN POLISTIREX 30 MG PO PRN (09:30)
[2018-06-25] MEDS ORDERED: NITROGLYCERIN SUBLINGUAL 0.4 MG BOTTLE OF 25. SL PRN (09:30)
[2018-06-25] MEDS: LISINOPRIL 10 MG TABLET PO SCH ×2 (09:36→20:57)
[2018-06-25] MEDS: PANTOPRAZOLE 40 MG TABLET.DR. PO SCH (09:36)
[2018-06-25] MEDS ORDERED: ONDANSETRON ODT 4 MG TAB.RAPDIS. PO PRN ×2 (09:45)
[2018-06-25 11:00] VITALS: BP 114/57
--- NOTE | 2018-06-25 12:28 | PDOC ---
Provider Note Provider Note Med onc consult 1. Esophageal ca - hold chemo/XRT due to dysphagia 2. Rt foot drop - consult neuro. See dictation [id number] DANIE RICHARDSON MD Jun 25, 2018 12:28
[2018-06-25 15:00] VITALS: BP 107/67
[2018-06-25] MEDS: MORPHINE SULFATE 4 MG/ML VIAL. IV PRN (15:33)
--- NOTE | 2018-06-25 16:19 | PDOC2 ---
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 He has been undergoing preoperative radiation therapy and chemo x5 and reports a pain in his midchest with swallowing solids and liquids. He denies N/V/diarrhea, constipation, blood in his stool. He has lost weight. He weighed 180 last year prior to his diagnosis and reports that he weighs 157 now. PMH: PMH: PAST MEDICAL HISTORY: upper endoscopy and biopsy on 04/12/[address] Craig Delarosa. This revealed a friable tumor at 30-35 cm with circumferential involvement of the GE junction. Biopsies performed here confirmed moderately well differentiated adenocarcinoma. He underwent PET CT imaging at [facility] on 04/26/2018. This confirmed a hypermetabolic gastroesophageal thickening extending into the distal esophagus and gastric cardia compatible with primary malignancy. There was a small distal right paraesophageal lymph node, too small to characterize on PET which may reflect a zulema metastasis. No PET CT imaging of distant metastatic disease was seen. On 05/05/2018, he underwent EUS for staging purposes by Dr. Kramer at [facility]. This revealed a hypoechoic lesion arising from mucosa extending in the muscularis propria and into the adventitia consistent with a T3 lesion, at least one 4 mm paraesophageal lymph node was seen, involvement of the cardia was seen with tumor. ALsodiabetes mellitus, hypertension, hyperlipidemia, gastroesophageal reflux disease, abdominal aortic aneurysm repair, appendectomy. ALLERGIES: No known allergies. MEDICATIONS: Pantoprazole, atorvastatin, nitroglycerin p.r.n., metformin, lisinopril, Phenergan With Codeine cough medication. FAMILY HISTORY: Father from lung cancer in his 70s. SOCIAL HISTORY: for 54 years, 2 children including a daughter who lives with him. Son lives nearby. 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 No significant hobbies. Distant history of beer drinking, quit more than 40 years ago. Smoked a pack a day for 50 years, quit 6 weeks ago at the time of diagnosis. I FH: Family History: Cancer Social History: Smoke: Quit ALCOHOL: none Drugs: None ROS: GEN: Denies fevers, chills, sweats HEENT: Denies blurred vision, sore throat CV: Denies chest pain RESP: Denies shortness of air, cough GI: Per HPI : Denies hematuria, dysuria ENDO: Denies weight changes NEURO: Denies confusion, dizziness MSK: Denies weakness, joint pain/swelling SKIN: Denies jaundice, pruritus VItals: Vitals: Vital Signs Date Time Temp Pulse Resp B/P (MAP) Pulse Ox O2 Delivery O2 Flow Rate FiO2 06/25/18 15:33 19 Room Air 06/25/18 15:10 94 06/25/18 15:00 97.8 91 107/67 (80) 97.8 Labs: Labs: Laboratory Tests Test 06/24/18 16:55 06/24/18 21:03 06/25/18 04:40 06/25/18 08:07 Glucose (Fingerstick) 116 mg/dL (70-99) 177 mg/dL (70-99) 136 mg/dL (70-99) White Blood Count 1.2 x10^3/uL (4.0-11.0) Red Blood Count 3.75 x10^6/uL (4.30-5.70) Hemoglobin 11.9 g/dL (13.0-17.5) Hematocrit 35.0 % (39.0-53.0) Mean Corpuscular Volume 93 fL (79-100) Mean Corpuscular Hemoglobin 32 pg (25-35) Mean Corpuscular Hemoglobin Concent 34 g/dL (31-37) Red Cell Distribution Width 14.2 % (11.5-14.5) Platelet Count 125 x10^3/uL (140-400) Neutrophils (%) (Auto) 78 % (31-73) Lymphocytes (%) (Auto) 11 % (24-48) Monocytes (%) (Auto) 10 % (0-9) Eosinophils (%) (Auto) 1 % (0-3) Basophils (%) (Auto) 1 % (0-3) Neutrophils # (Auto) 1.0 x10^3uL (1.8-7.7) Lymphocytes # (Auto) 0.1 x10^3/uL (1.0-4.8) Monocytes # (Auto) 0.1 x10^3/uL (0.0-1.1) Eosinophils # (Auto) 0.0 x10^3/uL (0.0-0.7) Basophils # (Auto) 0.0 x10^3/uL (0.0-0.2) Sodium Level 133 mmol/L (136-145) Potassium Level 4.8 mmol/L (3.5-5.1) Chloride Level 97 mmol/L (98-107) Carbon Dioxide Level 27 mmol/L (21-32) Anion Gap 9 (6-14) Blood Urea Nitrogen 22 mg/dL (8-26) Creatinine 1.0 mg/dL (0.7-1.3) Estimated GFR (Cockcroft-Gault) 72.5 BUN/Creatinine Ratio 22 (6-20) Glucose Level 128 mg/dL (70-99) Calcium Level 8.9 mg/dL (8.5-10.1) Total Bilirubin 0.7 mg/dL (0.2-1.0) Aspartate Amino Transf (AST/SGOT) 15 U/L (15-37) Alanine Aminotransferase (ALT/SGPT) 20 U/L (16-63) Alkaline Phosphatase 70 U/L (46-116) Total Protein 6.2 g/dL (6.4-8.2) Albumin 2.7 g/dL (3.4-5.0) Albumin/Globulin Ratio 0.8 (1.0-1.7) Test 06/25/18 11:39 Glucose (Fingerstick) 159 mg/dL (70-99) Imaging: Imaging: EXAM: CHEST 1 VIEW History: Chest pain COMPARISON: 04/10/2018 TECHNIQUE: Single portable radiograph of the chest FINDINGS: The cardiac silhouette is unremarkable. The lungs are clear bilaterally. Right-sided Port-A-Cath is identified. IMPRESSION: No radiographic evidence of an acute cardiopulmonary process. PE: HEENT: Revealed very poor dentition with few residual decaying teeth. He had no scleral icterus. LYMPH NODES: He had no palpable cervical or supraclavicular adenopathy. LUNGS: Clear. HEART: Regular. ABDOMEN: Unremarkable. He had no hepatomegaly, mass or tenderness. Port placed in the right infraclavicular space. EXTREMITIES: Reveal no clubbing, cyanosis or edema. NEUROLOGIC: He had no focal neurologic deficits. 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 Agree with carafate and GI cocktail/lidocaine. He would likely benefit from TPN given significant weight loss. He is currently neutropenic and hyponatremic. Consider EGD once no longer neutropenic. 2) weight loss: Alb 2.7. He rerptos loss from 180 last year to 157 now. Favor TPN. PEG unlikely given neutropenia and mass. May need surgical feeding tube LELO WORTHINGTON MD Jun 25, 2018 16:19
[2018-06-25] MEDS: metFORMIN 500 MG TABLET PO SCH (17:00)
[2018-06-25 19:00] VITALS: BP 124/67
[2018-06-25] MEDS: ATORVASTATIN CALCIUM 40 MG TABLET. PO SCH (20:57)
--- NOTE | 2018-06-25 21:26 | CONS ---
DATE OF CONSULTATION: 06/25/2018 REQUESTING PHYSICIAN: Vijaya Tellez MD REASON FOR CONSULTATION: Esophageal cancer and dysphagia. HISTORY OF PRESENT ILLNESS: The patient is a 78-year-old gentleman who presented to [facility] in 04/2018 with chest pain and he underwent an EGD on 04/11/2018 that revealed tumor in the GE junction and biopsy was consistent with well differentiated adenocarcinoma. PET scan revealed thickening in this region along with right paraesophageal lymph node. Endoscopic ultrasound on 04/19/2018 staged this as a T3 N1 M0, stage 3 esophageal cancer. He was started on neoadjuvant chemotherapy with weekly carboplatin and Taxol along with concurrent radiation therapy on 05/22/2018 and he received most recent dose on 06/20/2018. He is now admitted with complaints of dysphagia, odynophagia, and chest pain. He also reports that he is not able to dorsiflex his right foot. PAST MEDICAL HISTORY: Hypertension, hyperlipidemia, GERD, osteoarthritis, diabetes. FAMILY HISTORY: Positive for hypertension. SOCIAL HISTORY: He has quit smoking. REVIEW OF SYSTEMS: A 12-point review of system was performed. Pertinent positives are mentioned in the history of present illness. Rest of the system review is negative. PHYSICAL EXAMINATION: GENERAL APPEARANCE: The patient is a 78-year-old gentleman who is in no acute cardiorespiratory distress. VITAL SIGNS: Blood pressure 114/57, temperature 98.1. HEAD: Atraumatic, normocephalic. EYES: No icterus. NECK: Supple. CHEST: Bilaterally symmetrical. HEART: S1, S2 normal. ABDOMEN: Soft, nontender. CENTRAL NERVOUS SYSTEM: No focal deficits. LYMPHATICS: No lymphadenopathy. SKIN: No rashes. PSYCHOLOGIC: Mood and affect are appropriate. MUSCULOSKELETAL: No joint effusions. LABORATORY DATA: WBC 1.2, hemoglobin 11.9, platelet count 125. Creatinine 1.0. IMPRESSION AND PLAN: 1. Stage 3 esophageal cancer diagnosed in 04/2018. He is on concurrent chemoradiation therapy, which will be on hold because of worsening dysphagia and neutropenia. Plan to resume treatments once his symptoms are better. Continue to monitor for toxicities of chemoradiation. I discussed with registered nurse. I will also notify Dr. Latonia Kincaid who will be following up with the patient tomorrow. 2. Dysphagia and odynophagia due to radiation therapy and chemotherapy. Appreciate management per Dr. Vijaya Tellez. I agree to proceed with gastrointestinal cocktail 4 times a day. 3. Right footdrop. I will consult Neurology, suspect that this may be due to Taxol. 4. Neutropenia. Continue neutropenic precautions. WBC is 1.2 with an absolute neutrophil count of 1.0. DANIE RICHARDSON MD DR: KIRA/violet JOB#: [id number] / [id number]
[2018-06-25 21:29] LABS: BILIRUBIN,URINE NEGATIVE (NEG); CLARITY,URINE CLEAR; COLOR,URINE YELLOW; NITRITE,URINE NEGATIVE (NEG); PROTEIN,URINE NEGATIVE (NEG-TRACE); UROBILINOGEN,URINE 0.2 mg/dL (0.2 mg/dL)
[2018-06-25 21:36] LABS: AMPHETAMINE/METHAMPHETAMINE NEG (NEG); BARBITURATES NEG (NEG); BENZODIAZEPINES NEG (NEG); CANNABINOIDS NEG (NEG); COCAINE NEG (NEG); METHADONE NEG (NEG); OPIATES POS (NEG); PHENCYCLIDINE NEG (NEG)
[2018-06-25 21:47] LABS: BACTERIA,URINE 0 /HPF (0-FEW); RBC,URINE 0 /HPF (0-2); WBC,URINE 0 /HPF (0-4)
[2018-06-25 22:46] VITALS: BP 110/70
--- NOTE | 2018-06-26 00:22 | CONS ---
DATE OF CONSULTATION: 06/25/2018 REFERRING PHYSICIAN: Vijaya Tellez MD REASON FOR CONSULTATION: Right footdrop. HISTORY OF PRESENT ILLNESS: The patient is a very pleasant 78-year-old man, admitted to [facility] on 06/24/2018. He was diagnosed late last year with esophageal cancer stage 3. He has had radiation therapy and chemotherapy. He has 3 days to go before he completes his 5 weeks of radiation. He has been having pain in his chest with swallowing and at times shortness of breath and cough. This is being addressed through his regular physicians, Oncology and Radiation Oncology. I have been asked to evaluate because he developed weakness of his right foot today. He was sitting on the toilet and when he got off the toilet, his foot was weak. This has not been associated with any numbness. This did not affect vision or hearing. He did not have dizziness. He did not have weakness or numbness elsewhere. He has not had similar symptoms. PAST MEDICAL HISTORY: 1. Hypertension. 2. Hyperlipidemia. 3. Gastroesophageal reflux disease. 4. Osteoarthritis. 5. Diabetes. 6. Esophageal cancer. 7. Appendectomy. ALLERGIES: No known allergies to drugs. MEDICATIONS PRIOR TO ADMISSION: Atorvastatin 40 mg, dextromethorphan twice per day as needed, lisinopril 10 mg twice per day, metformin 500 mg twice per day with meals, nitroglycerin 0.4 mg as needed, Zofran 8 mg twice per day as needed, promethazine/codeine 5 mL every 4 hours as needed, Protonix 40 mg daily. FAMILY HISTORY: Hypertension. SOCIAL HISTORY: He quit smoking with a diagnosis of esophageal cancer. He does not drink alcohol or use recreational drugs. REVIEW OF SYSTEMS: He has not had any headache. There has been no change of vision or hearing. He is not aware of any cognitive loss. He has had trouble with swallowing and chest pain when swallowing. He has had cough, but not short of breath. There has been no abdominal pain. He does not complain of bone or joint pain. He has not had fever or rash. Does not have any gastrointestinal or genitourinary complaint. Does not have any psychiatric complaints. Does not complain of easy bruising, bleeding or swelling. PHYSICAL EXAMINATION: VITAL SIGNS: The blood pressure was 107/67, pulse 91, respirations 16, temperature 97.8 degrees Celsius. Oximetry was 92% on room air. His weight was 157 pounds, height 64 inches and a calculated body mass index of 26.9. NEUROLOGIC: He was alert, awake and cooperative. Speech was fluent and clear. He had a good fund of recent and remote knowledge. Attention and concentration was intact. He appeared well groomed and well nourished. He was fully oriented. Examination of the cranial nerves revealed visual lewis were full to confrontation. Extraocular movements were intact. The eyes were conjugate. Pursuit movements were smooth and saccadic eye movements were without dysmetria. Pupils were 2 mm. I was not able to do funduscopic exam because of myosis. Facial sensation was intact bilaterally. The muscles of mastication and facial expression were powerful symmetrically. Hearing was intact to finger rub. The palate arched symmetrically and the tongue was midline with full range of motion. Sternocleidomastoid and trapezius were powerful. Muscle bulk and tone was normal. There was no arm or leg drift. Power was full in the upper extremities bilaterally. Power was full in the left leg. Power was full in the right leg with hip flexion and extension and knee flexion and extension. In the right ankle, he had good power to inversion and plantar flexion, but was extremely weak with eversion and dorsiflexion. Reflexes were 1/4 and symmetric in the upper and lower extremities. Toes were downgoing bilaterally. Coordination testing with [id number], [id number], fine motor and rapid alternating movements was well performed. The sensory exam was intact to pain, light touch, proprioception, graphesthesia, cold thermal and vibration. There was no extinction to double simultaneous stimulation. He is able to stand and bear weight, was slightly dizzy. With balance support, he could stand on toes. He could not stand on his right heel. Romberg stance was positive. He has a tendency to lean backwards. NECK: Auscultation of the carotid arteries did reveal a right bruit. HEART: Rhythm is regular without a murmur. EXTREMITIES: Peripheral pulses were symmetric. There was no edema or cyanosis of the extremities. REVIEW OF LABORATORY DATA: CBC revealed a low white blood cell count at 1.2, hemoglobin was low at 11.9 and hematocrit 35 with platelet count low at 125. Chemistries revealed sodium low at 133 and chloride low at 97. Potassium and CO2 were normal. BUN and creatinine were normal with a calculated GFR of 72.5. Glucose was elevated at 128. Calcium was normal, but total protein was low at 6.2 and albumin at 2.7. The liver enzymes were not elevated. Chest x-ray was performed on 06/24/2018 and revealed no radiologic evidence of acute cardiopulmonary process. CT scan was performed of the chest/abdomen/pelvis. There was no evidence of thoracic metastatic disease. There was mild emphysema. There was mild thickening of the gastroesophageal junction. There was no evidence of abdominal or pelvic metastatic disease. There was a right renal lesion of 1 cm and further investigation was recommended. IMPRESSION: The patient is a very pleasant 78-year-old man who was discovered to have esophageal cancer towards the end of 2018. He is undergoing treatment. There has been no evidence of metastatic disease in the chest, abdomen and pelvis. 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 This does not appear to be an L5 radiculopathy. He may have a peroneal neuropathy as he is more susceptible to this because of the diabetes and his recent weight loss. He also has a right carotid bruit, which could potentially indicate stenosis or could be a tortuous vessel. RECOMMENDATIONS: Imaging of the spine is not indicated given that this is a peripheral process. He needs to keep pressure off his right knee when sitting and lying. He should not cross his knees. It is possible the toilet seat is too tall and is putting pressure on the peroneal nerve behind his knee. He may need a step stool to rest his feet on so there is no pressure on the back of his knee. He may be well served by an ankle-foot orthosis so that he does not trip over his feet and toes. I would also consider a carotid Doppler to evaluate for stenosis. He has not had any acute neurologic symptoms referable to this so this does not necessarily need to be done on an emergent basis. I appreciate being involved in his care. SLIME [facility] MD DR: URSULA/violet JOB#: [id number] / [id number] PRAMOD Luna MD, FERILYN MD
[2018-06-26 03:04] VITALS: BP 108/72
[2018-06-26 07:00] VITALS: BP 105/63
[2018-06-26] MEDS: IPRATRPIUM/ALBUTEROL 0.5/2.5MG 3 ML NEBU. NEB SCH ×4 (07:50→19:51)
[2018-06-26] MEDS: INSULIN LISPRO 300 UNITS/3 ML INSULN.PEN. SQ SCH ×3 (08:00→17:00)
[2018-06-26] MEDS: LISINOPRIL 10 MG TABLET PO SCH ×4 (08:43→23:30)
[2018-06-26] MEDS: guaiFENesin/CODEINE 100mg/10mg 5 ML LIQUID PO PRN (08:43)
[2018-06-26] MEDS: metFORMIN 500 MG TABLET PO SCH ×2 (08:43→17:12)
[2018-06-26] MEDS: PANTOPRAZOLE 40 MG TABLET.DR. PO SCH (08:43)
[2018-06-26] MEDS: guaiFENesin DM 200MG/20MG 10 ML SYRUP PO SCH ×4 (08:47→21:43)
--- NOTE | 2018-06-26 08:48 | PDOC ---
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 Plan No need for imaging of the spine Keep pressure off his right knee when sitting and lying, and should not cross his knees. May need step stool for toilet He may need ankle-foot orthosis, hold for now Carotid Doppler re bruit Subjective no complaints, denies pain Objective Vital Signs Date Time Temp Pulse Resp B/P (MAP) Pulse Ox O2 Delivery O2 Flow Rate FiO2 06/26/18 07:50 94 Room Air 06/26/18 07:00 97.9 87 16 105/63 (77) 97.9 Intake and Output 06/26/18 07:00 Intake Total 670 ml Balance 670 ml Intake Oral 670 ml # Voids 1 PHYSICAL EXAM Alert. Oriented to time, place and person. PERRL. EOMI. CN: no focal findings. Muscle tone: normal. Muscle strength: 3/5 right foot drop, otherwise normal DTR: 1+ Plantar reflex: flexor Gait: not examined in bed. Sensory exam: no abnormal findings. No cerebellar signs elicited. Review of Relevant I have reviewed the following items erica (where applicable) has been applied. Labs Laboratory Tests Test 06/24/18 12:30 06/24/18 16:55 06/24/18 21:03 06/25/18 04:40 White Blood Count 1.3 x10^3/uL (4.0-11.0) 1.2 x10^3/uL (4.0-11.0) Red Blood Count 4.44 x10^6/uL (4.30-5.70) 3.75 x10^6/uL (4.30-5.70) Hemoglobin 13.8 g/dL (13.0-17.5) 11.9 g/dL (13.0-17.5) Hematocrit 41.5 % (39.0-53.0) 35.0 % (39.0-53.0) Mean Corpuscular Volume 94 fL (79-100) 93 fL (79-100) Mean Corpuscular Hemoglobin 31 pg (25-35) 32 pg (25-35) Mean Corpuscular Hemoglobin Concent 33 g/dL (31-37) 34 g/dL (31-37) Red Cell Distribution Width 14.1 % (11.5-14.5) 14.2 % (11.5-14.5) Platelet Count 138 x10^3/uL (140-400) 125 x10^3/uL (140-400) Neutrophils (%) (Auto) 80 % (31-73) 78 % (31-73) Lymphocytes (%) (Auto) 13 % (24-48) 11 % (24-48) Monocytes (%) (Auto) 6 % (0-9) 10 % (0-9) Eosinophils (%) (Auto) 0 % (0-3) 1 % (0-3) Basophils (%) (Auto) 1 % (0-3) 1 % (0-3) Neutrophils # (Auto) 1.0 x10^3uL (1.8-7.7) 1.0 x10^3uL (1.8-7.7) Lymphocytes # (Auto) 0.2 x10^3/uL (1.0-4.8) 0.1 x10^3/uL (1.0-4.8) Monocytes # (Auto) 0.1 x10^3/uL (0.0-1.1) 0.1 x10^3/uL (0.0-1.1) Eosinophils # (Auto) 0.0 x10^3/uL (0.0-0.7) 0.0 x10^3/uL (0.0-0.7) Basophils # (Auto) 0.0 x10^3/uL (0.0-0.2) 0.0 x10^3/uL (0.0-0.2) Segmented Neutrophils % 71 % (35-66) Band Neutrophils % 15 % (0-9) Lymphocytes % 9 % (24-48) Atypical Lymphocytes % (Manual) 2 % (0-0) Monocytes % 1 % (0-10) Eosinophils % 1 % (0-5) Myelocytes % 1 % (0-0) Toxic Vacuolation Slight Platelet Estimate Adequate (ADEQUATE) Sodium Level 137 mmol/L (136-145) 133 mmol/L (136-145) Potassium Level 4.7 mmol/L (3.5-5.1) 4.8 mmol/L (3.5-5.1) Chloride Level 98 mmol/L (98-107) 97 mmol/L (98-107) Carbon Dioxide Level 27 mmol/L (21-32) 27 mmol/L (21-32) Anion Gap 12 (6-14) 9 (6-14) Blood Urea Nitrogen 23 mg/dL (8-26) 22 mg/dL (8-26) Creatinine 1.1 mg/dL (0.7-1.3) 1.0 mg/dL (0.7-1.3) Estimated GFR (Cockcroft-Gault) 64.9 72.5 BUN/Creatinine Ratio 21 (6-20) 22 (6-20) Glucose Level 179 mg/dL (70-99) 128 mg/dL (70-99) Calcium Level 9.4 mg/dL (8.5-10.1) 8.9 mg/dL (8.5-10.1) Magnesium Level 1.8 mg/dL (1.8-2.4) Total Bilirubin 0.7 mg/dL (0.2-1.0) 0.7 mg/dL (0.2-1.0) Aspartate Amino Transf (AST/SGOT) 18 U/L (15-37) 15 U/L (15-37) Alanine Aminotransferase (ALT/SGPT) 22 U/L (16-63) 20 U/L (16-63) Alkaline Phosphatase 90 U/L (46-116) 70 U/L (46-116) Creatine Kinase 49 U/L (39-308) Creatine Kinase MB (Mass) 0.6 ng/mL (0.0-3.6) Creatine Kinase MB Relative Index % (0-4) Troponin I Quantitative < 0.017 ng/mL (0.000-0.055) [id number] Natriuretic Peptide 178 pg/mL (0-449) Total Protein 7.1 g/dL (6.4-8.2) 6.2 g/dL (6.4-8.2) Albumin 3.2 g/dL (3.4-5.0) 2.7 g/dL (3.4-5.0) Albumin/Globulin Ratio 0.8 (1.0-1.7) 0.8 (1.0-1.7) Lipase 324 U/L (73-393) Thyroid Stimulating Hormone (TSH) 1.404 uIU/mL (0.358-3.74) Glucose (Fingerstick) 116 mg/dL (70-99) 177 mg/dL (70-99) Test 06/25/18 08:07 06/25/18 11:39 06/25/18 16:28 06/25/18 20:34 Glucose (Fingerstick) 136 mg/dL (70-99) 159 mg/dL (70-99) 129 mg/dL (70-99) 151 mg/dL (70-99) Test 06/25/18 21:15 06/26/18 07:44 Urine Collection Type Unknown Urine Color Yellow Urine Clarity Clear Urine pH 6.0 Urine Specific [place] 1.015 Urine Protein Negative mg/dL (NEG-TRACE) Urine Glucose (UA) Negative mg/dL (NEG) Urine Ketones (Stick) Negative mg/dL (NEG) Urine Blood Negative (NEG) Urine Nitrite Negative (NEG) Urine Bilirubin Negative (NEG) Urine Urobilinogen Dipstick 0.2 mg/dL (0.2 mg/dL) Urine Leukocyte Esterase Negative (NEG) Urine RBC 0 /HPF (0-2) Urine WBC 0 /HPF (0-4) Urine Bacteria 0 /HPF (0-FEW) Urine Mucus Slight /LPF Urine Opiates Screen Pos (NEG) Urine Methadone Screen Neg (NEG) Urine Barbiturates Neg (NEG) Urine Phencyclidine Screen Neg (NEG) Urine Amphetamine/Methamphetamine Neg (NEG) Urine Benzodiazepines Screen Neg (NEG) Urine Cocaine Screen Neg (NEG) Urine Cannabinoids Screen Neg (NEG) Urine Ethyl Alcohol Neg (NEG) Glucose (Fingerstick) 112 mg/dL (70-99) Laboratory Tests Test 06/25/18 11:39 06/25/18 16:28 06/25/18 20:34 06/25/18 21:15 Glucose (Fingerstick) 159 mg/dL (70-99) 129 mg/dL (70-99) 151 mg/dL (70-99) Urine Collection Type Unknown Urine Color Yellow Urine Clarity Clear Urine pH 6.0 Urine Specific [place] 1.015 Urine Protein Negative mg/dL (NEG-TRACE) Urine Glucose (UA) Negative mg/dL (NEG) Urine Ketones (Stick) Negative mg/dL (NEG) Urine Blood Negative (NEG) Urine Nitrite Negative (NEG) Urine Bilirubin Negative (NEG) Urine Urobilinogen Dipstick 0.2 mg/dL (0.2 mg/dL) Urine Leukocyte Esterase Negative (NEG) Urine RBC 0 /HPF (0-2) Urine WBC 0 /HPF (0-4) Urine Bacteria 0 /HPF (0-FEW) Urine Mucus Slight /LPF Urine Opiates Screen Pos (NEG) Urine Methadone Screen Neg (NEG) Urine Barbiturates Neg (NEG) Urine Phencyclidine Screen Neg (NEG) Urine Amphetamine/Methamphetamine Neg (NEG) Urine Benzodiazepines Screen Neg (NEG) Urine Cocaine Screen Neg (NEG) Urine Cannabinoids Screen Neg (NEG) Urine Ethyl Alcohol Neg (NEG) Test 06/26/18 07:44 Glucose (Fingerstick) 112 mg/dL (70-99) Medications Current Medications Multi-Ingredient Mouthwash/Gargle (Gi Cocktail) 20 ml 1X ONCE SWSW Last administered on 06/24/18 13:11; Start 06/24/18 at 12:45; Stop 06/24/18 at 12:46 ; Status DC Morphine Sulfate (Morphine Sulfate) 5 mg 1X ONCE IV Last administered on at 14:34; Start 06/24/18 at 12:45; Stop 06/24/18 at 12:46; Status DC Lidocaine HCl (Viscous Lidocaine) 15 ml PRN Q4HRS PRN SWSW MOUTH PAIN; Start at 16:00 Albuterol/ Ipratropium (Duoneb) 3 ml RTQID NEB Last administered on 06/26/18at 07:50; Start 06/24/18 at 16:00 Guaifenesin (Robitussin Dm) 10 ml QID PO Last administered on 06/25/18at 20:57; Start 06/24/18 at 17:00 Diphenhydramine HCl (Benadryl Oral Elixir) 25 mg QHS PRN PO sleep; Start at 16:00 Morphine Sulfate (Morphine Sulfate) 1 mg PRN Q2HR PRN IV PAIN Last administered on 06/25/18at 15:33; Start 06/24/18 at 16:00 Acetaminophen/ Codeine Phosphate (Tylenol/Codeine Soln) 5 ml PRN Q6HRS PRN PO pain Last administered on 06/25/18at 11:18; Start 06/24/18 at 16:00 Sodium Chloride 1,000 ml @ 75 mls/hr 1X ONCE IV Last administered on at 16:46; Start 06/24/18 at 16:00; Stop 06/25/18 at 05:19; Status DC Insulin Human Lispro (HumaLOG) 0-7 UNITS TIDWMEALS SQ ; Start 06/24/18 at 17:00 Dextrose (Dextrose 50%-Water Syringe) 12.5 gm PRN Q15MIN PRN IV SEE COMMENTS; Start 06/24/18 at 16:00 Labetalol HCl (Normodyne Iv Push) 10 mg PRN Q2HR PRN IVP HYPERTENSION, SEE COMMENTS; Start 06/24/18 at 16:00 Ondansetron HCl (Zofran) 4 mg PRN Q8HRS PRN IV NAUSEA/VOMITING Last administered on 06/24/18at 21:29; Start 06/24/18 at 17:45; Stop 06/25/18 at 17:44 ; Status DC Morphine Sulfate (Morphine Sulfate) 4 mg PRN Q2HR PRN IV PAIN; Start 06/24/18 at 17:45; Stop 06/25/18 at 17:44; Status DC Acetaminophen (Tylenol) 650 mg PRN Q4HRS PRN PO FEVER; Start 06/24/18 at 17:45 ; Stop 06/25/18 at 17:44; Status DC Multi-Ingredient Mouthwash/Gargle (Gi Cocktail) 20 ml PRN QID PRN PO CHEST PAIN Last administered on 06/25/18at 07:36; Start 06/25/18 at 07:30 Atorvastatin Calcium (Lipitor) 40 mg QHS PO Last administered on 06/25/18at 20: 57; Start 06/25/18 at 21:00 Lisinopril (Prinivil) 10 mg BID PO Last administered on 06/25/18at 20:57; Start 06/25/18 at 10:00 Nitroglycerin (Nitrostat) 0.4 mg PRN Q5MIN PRN SL CHEST PAIN; Start 06/25/18 at 09:30 Non-Formulary Medication (Dextromethorphan Polistirex (Delsym)) 30 mg BID PRN PO COUGH; Start 06/25/18 at 09:30; Status UNV Metformin HCl (Glucophage) 500 mg BIDWMEALS PO Last administered on 06/25/18at 17:00; Start 06/25/18 at 17:00 Ondansetron HCl (Zofran Odt) 4 mg PRN Q12HRS PRN PO NAUSEA/VOMITING; Start at 09:45; Stop 06/25/18 at 09:45; Status DC Guaifenesin/ Codeine Phosphate (Robitussin Ac) 5 ml PRN Q4HRS PRN PO COUGH; Start 06/25/18 at 09:45 Pantoprazole Sodium (Protonix) 40 mg DAILYAC PO Last administered on 06/25/18at 09:36; Start 06/25/18 at 10:00 Ondansetron HCl (Zofran Odt) 8 mg PRN Q12HRS PRN PO NAUSEA/VOMITING; Start at 09:45 Active Scripts Active Nitrostat (Nitroglycerin) 0.4 Mg Tab.subl 0.4 Mg SL PRN Q5MIN PRN 30 Days Atorvastatin Calcium 40 Mg Tablet 40 Mg PO QHS 28 Days [Pantoprazole] 40 MG Tablet.dr 40 Mg PO DAILYAC 30 Days Reported Delsym (Dextromethorphan Polistirex) 30 Mg/5 Ml Nola.er.12h 30 Mg PO BID PRN Zofran (Ondansetron Hcl) 8 Mg Tablet 8 Mg PO BID PRN Promethazine-Codeine Syrup (Promethazine Hcl/Codeine) 118 Ml Syrup 5 Ml PO Q4- 6HRS Lisinopril 10 Mg Tablet 10 Mg PO BID Metformin Hcl 500 Mg Tablet 500 Mg PO BIDWMEALS Vitals/I & O Vital Sign - Last 24 Hours 06/25/18 06/25/18 06/25/18 06/25/18 09:36 11:00 11:18 11:18 Temp 98.1 98.1 Pulse 87 90 Resp 16 18 B/P (MAP) 118/61 114/57 (76) Pulse Ox 92 92 O2 Delivery Room Air Room Air Room Air 06/25/18 06/25/18 06/25/18 06/25/18 12:18 15:00 15:10 15:33 Temp 97.8 97.8 Pulse 91 Resp 17 16 19 B/P (MAP) 107/67 (80) Pulse Ox 92 94 O2 Delivery Room Air Room Air Room Air Room Air 06/25/18 06/25/18 06/25/18 06/25/18 16:00 19:00 20:15 20:30 Pulse 94 Resp 17 18 B/P (MAP) 124/67 (86) Pulse Ox 96 O2 Delivery Room Air Room Air Room Air 06/25/18 06/25/18 06/26/18 06/26/18 20:57 22:46 03:04 07:00 Temp 97.9 98.2 97.9 97.9 98.2 97.9 Pulse 94 91 98 87 Resp 18 18 16 B/P (MAP) 124/67 110/70 (83) 108/72 (84) 105/63 (77) Pulse Ox 95 95 96 O2 Delivery Room Air Room Air Room Air 06/26/18 07:50 Pulse Ox 94 O2 Delivery Room Air Intake and Output 06/25/18 06/25/18 06/26/18 15:00 23:00 07:00 Intake Total 100 ml 210 ml 360 ml Balance 100 ml 210 ml 360 ml PRAMOD CARLISLE MD Jun 26, 2018 08:48
--- NOTE | 2018-06-26 09:26 | PDOC ---
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 However we'll await neuro consult and see how he is doing over time Neutropenia: Neutropenic precautions Prophylaxis: Okay to give Lovenox prophylaxis, ordered Thank you kindly and please do not hesitate to call with questions. Objective Objective Vital Signs Date Time Temp Pulse Resp B/P (MAP) Pulse Ox O2 Delivery O2 Flow Rate FiO2 06/26/18 08:43 87 105/63 06/26/18 07:50 94 Room Air 06/26/18 07:00 97.9 16 97.9 Intake and Output 06/26/18 06:59 Intake Total 670 ml Balance 670 ml Intake Oral 670 ml # Voids 1 Assessment Assessment Problems Medical Problems: (1) Epigastric abdominal pain Status: Acute (2) Esophageal cancer Status: Acute Comment Review of Relevant I have reviewed the following items erica (where applicable) has been applied. Labs Laboratory Tests Test 06/24/18 12:30 06/24/18 16:55 06/24/18 21:03 06/25/18 04:40 White Blood Count 1.3 x10^3/uL (4.0-11.0) 1.2 x10^3/uL (4.0-11.0) Red Blood Count 4.44 x10^6/uL (4.30-5.70) 3.75 x10^6/uL (4.30-5.70) Hemoglobin 13.8 g/dL (13.0-17.5) 11.9 g/dL (13.0-17.5) Hematocrit 41.5 % (39.0-53.0) 35.0 % (39.0-53.0) Mean Corpuscular Volume 94 fL (79-100) 93 fL (79-100) Mean Corpuscular Hemoglobin 31 pg (25-35) 32 pg (25-35) Mean Corpuscular Hemoglobin Concent 33 g/dL (31-37) 34 g/dL (31-37) Red Cell Distribution Width 14.1 % (11.5-14.5) 14.2 % (11.5-14.5) Platelet Count 138 x10^3/uL (140-400) 125 x10^3/uL (140-400) Neutrophils (%) (Auto) 80 % (31-73) 78 % (31-73) Lymphocytes (%) (Auto) 13 % (24-48) 11 % (24-48) Monocytes (%) (Auto) 6 % (0-9) 10 % (0-9) Eosinophils (%) (Auto) 0 % (0-3) 1 % (0-3) Basophils (%) (Auto) 1 % (0-3) 1 % (0-3) Neutrophils # (Auto) 1.0 x10^3uL (1.8-7.7) 1.0 x10^3uL (1.8-7.7) Lymphocytes # (Auto) 0.2 x10^3/uL (1.0-4.8) 0.1 x10^3/uL (1.0-4.8) Monocytes # (Auto) 0.1 x10^3/uL (0.0-1.1) 0.1 x10^3/uL (0.0-1.1) Eosinophils # (Auto) 0.0 x10^3/uL (0.0-0.7) 0.0 x10^3/uL (0.0-0.7) Basophils # (Auto) 0.0 x10^3/uL (0.0-0.2) 0.0 x10^3/uL (0.0-0.2) Segmented Neutrophils % 71 % (35-66) Band Neutrophils % 15 % (0-9) Lymphocytes % 9 % (24-48) Atypical Lymphocytes % (Manual) 2 % (0-0) Monocytes % 1 % (0-10) Eosinophils % 1 % (0-5) Myelocytes % 1 % (0-0) Toxic Vacuolation Slight Platelet Estimate Adequate (ADEQUATE) Sodium Level 137 mmol/L (136-145) 133 mmol/L (136-145) Potassium Level 4.7 mmol/L (3.5-5.1) 4.8 mmol/L (3.5-5.1) Chloride Level 98 mmol/L (98-107) 97 mmol/L (98-107) Carbon Dioxide Level 27 mmol/L (21-32) 27 mmol/L (21-32) Anion Gap 12 (6-14) 9 (6-14) Blood Urea Nitrogen 23 mg/dL (8-26) 22 mg/dL (8-26) Creatinine 1.1 mg/dL (0.7-1.3) 1.0 mg/dL (0.7-1.3) Estimated GFR (Cockcroft-Gault) 64.9 72.5 BUN/Creatinine Ratio 21 (6-20) 22 (6-20) Glucose Level 179 mg/dL (70-99) 128 mg/dL (70-99) Calcium Level 9.4 mg/dL (8.5-10.1) 8.9 mg/dL (8.5-10.1) Magnesium Level 1.8 mg/dL (1.8-2.4) Total Bilirubin 0.7 mg/dL (0.2-1.0) 0.7 mg/dL (0.2-1.0) Aspartate Amino Transf (AST/SGOT) 18 U/L (15-37) 15 U/L (15-37) Alanine Aminotransferase (ALT/SGPT) 22 U/L (16-63) 20 U/L (16-63) Alkaline Phosphatase 90 U/L (46-116) 70 U/L (46-116) Creatine Kinase 49 U/L (39-308) Creatine Kinase MB (Mass) 0.6 ng/mL (0.0-3.6) Creatine Kinase MB Relative Index % (0-4) Troponin I Quantitative < 0.017 ng/mL (0.000-0.055) SI-[id number]-Type Natriuretic Peptide 178 pg/mL (0-449) Total Protein 7.1 g/dL (6.4-8.2) 6.2 g/dL (6.4-8.2) Albumin 3.2 g/dL (3.4-5.0) 2.7 g/dL (3.4-5.0) Albumin/Globulin Ratio 0.8 (1.0-1.7) 0.8 (1.0-1.7) Lipase 324 U/L (73-393) Thyroid Stimulating Hormone (TSH) 1.404 uIU/mL (0.358-3.74) Glucose (Fingerstick) 116 mg/dL (70-99) 177 mg/dL (70-99) Test 06/25/18 08:07 06/25/18 11:39 06/25/18 16:28 06/25/18 20:34 Glucose (Fingerstick) 136 mg/dL (70-99) 159 mg/dL (70-99) 129 mg/dL (70-99) 151 mg/dL (70-99) Test 06/25/18 21:15 06/26/18 07:44 Urine Collection Type Unknown Urine Color Yellow Urine Clarity Clear Urine pH 6.0 Urine Specific [place] 1.015 Urine Protein Negative mg/dL (NEG-TRACE) Urine Glucose (UA) Negative mg/dL (NEG) Urine Ketones (Stick) Negative mg/dL (NEG) Urine Blood Negative (NEG) Urine Nitrite Negative (NEG) Urine Bilirubin Negative (NEG) Urine Urobilinogen Dipstick 0.2 mg/dL (0.2 mg/dL) Urine Leukocyte Esterase Negative (NEG) Urine RBC 0 /HPF (0-2) Urine WBC 0 /HPF (0-4) Urine Bacteria 0 /HPF (0-FEW) Urine Mucus Slight /LPF Urine Opiates Screen Pos (NEG) Urine Methadone Screen Neg (NEG) Urine Barbiturates Neg (NEG) Urine Phencyclidine Screen Neg (NEG) Urine Amphetamine/Methamphetamine Neg (NEG) Urine Benzodiazepines Screen Neg (NEG) Urine Cocaine Screen Neg (NEG) Urine Cannabinoids Screen Neg (NEG) Urine Ethyl Alcohol Neg (NEG) Glucose (Fingerstick) 112 mg/dL (70-99) Laboratory Tests Test 06/25/18 11:39 06/25/18 16:28 06/25/18 20:34 06/25/18 21:15 Glucose (Fingerstick) 159 mg/dL (70-99) 129 mg/dL (70-99) 151 mg/dL (70-99) Urine Collection Type Unknown Urine Color Yellow Urine Clarity Clear Urine pH 6.0 Urine Specific [place] 1.015 Urine Protein Negative mg/dL (NEG-TRACE) Urine Glucose (UA) Negative mg/dL (NEG) Urine Ketones (Stick) Negative mg/dL (NEG) Urine Blood Negative (NEG) Urine Nitrite Negative (NEG) Urine Bilirubin Negative (NEG) Urine Urobilinogen Dipstick 0.2 mg/dL (0.2 mg/dL) Urine Leukocyte Esterase Negative (NEG) Urine RBC 0 /HPF (0-2) Urine WBC 0 /HPF (0-4) Urine Bacteria 0 /HPF (0-FEW) Urine Mucus Slight /LPF Urine Opiates Screen Pos (NEG) Urine Methadone Screen Neg (NEG) Urine Barbiturates Neg (NEG) Urine Phencyclidine Screen Neg (NEG) Urine Amphetamine/Methamphetamine Neg (NEG) Urine Benzodiazepines Screen Neg (NEG) Urine Cocaine Screen Neg (NEG) Urine Cannabinoids Screen Neg (NEG) Urine Ethyl Alcohol Neg (NEG) Test 06/26/18 07:44 Glucose (Fingerstick) 112 mg/dL (70-99) Medications Current Medications Multi-Ingredient Mouthwash/Gargle (Gi Cocktail) 20 ml 1X ONCE SWSW Last administered on 06/24/18at 13:11; Start 06/24/18 at 12:45; Stop 06/24/18 at 12:46 ; Status DC Morphine Sulfate (Morphine Sulfate) 5 mg 1X ONCE IV Last administered on at 14:34; Start 06/24/18 at 12:45; Stop 06/24/18 at 12:46; Status DC Lidocaine HCl (Viscous Lidocaine) 15 ml PRN Q4HRS PRN SWSW MOUTH PAIN; Start at 16:00 Albuterol/ Ipratropium (Duoneb) 3 ml RTQID NEB Last administered on 06/26/18at 07:50; Start 06/24/18 at 16:00 Guaifenesin (Robitussin Dm) 10 ml QID PO Last administered on 06/25/18at 20:57; Start 06/24/18 at 17:00 Diphenhydramine HCl (Benadryl Oral Elixir) 25 mg QHS PRN PO sleep; Start at 16:00 Morphine Sulfate (Morphine Sulfate) 1 mg PRN Q2HR PRN IV PAIN Last administered on 06/25/18at 15:33; Start 06/24/18 at 16:00 Acetaminophen/ Codeine Phosphate (Tylenol/Codeine Soln) 5 ml PRN Q6HRS PRN PO pain Last administered on 06/25/18at 11:18; Start 06/24/18 at 16:00 Sodium Chloride 1,000 ml @ 75 mls/hr 1X ONCE IV Last administered on at 16:46; Start 06/24/18 at 16:00; Stop 06/25/18 at 05:19; Status DC Insulin Human Lispro (HumaLOG) 0-7 UNITS TIDWMEALS SQ ; Start 06/24/18 at 17:00 Dextrose (Dextrose 50%-Water Syringe) 12.5 gm PRN Q15MIN PRN IV SEE COMMENTS; Start 06/24/18 at 16:00 Labetalol HCl (Normodyne Iv Push) 10 mg PRN Q2HR PRN IVP HYPERTENSION, SEE COMMENTS; Start 06/24/18 at 16:00 Ondansetron HCl (Zofran) 4 mg PRN Q8HRS PRN IV NAUSEA/VOMITING Last administered on 06/24/18at 21:29; Start 06/24/18 at 17:45; Stop 06/25/18 at 17:44 ; Status DC Morphine Sulfate (Morphine Sulfate) 4 mg PRN Q2HR PRN IV PAIN; Start 06/24/18 at 17:45; Stop 06/25/18 at 17:44; Status DC Acetaminophen (Tylenol) 650 mg PRN Q4HRS PRN PO FEVER; Start 06/24/18 at 17:45 ; Stop 06/25/18 at 17:44; Status DC Multi-Ingredient Mouthwash/Gargle (Gi Cocktail) 20 ml PRN QID PRN PO CHEST PAIN Last administered on 06/25/18at 07:36; Start 06/25/18 at 07:30 Atorvastatin Calcium (Lipitor) 40 mg QHS PO Last administered on 06/25/18at 20: 57; Start 06/25/18 at 21:00 Lisinopril (Prinivil) 10 mg BID PO Last administered on 06/26/18at 08:43; Start 06/25/18 at 10:00 Nitroglycerin (Nitrostat) 0.4 mg PRN Q5MIN PRN SL CHEST PAIN; Start 06/25/18 at 09:30 Non-Formulary Medication (Dextromethorphan Polistirex (Delsym)) 30 mg BID PRN PO COUGH; Start 06/25/18 at 09:30; Status UNV Metformin HCl (Glucophage) 500 mg BIDWMEALS PO Last administered on 06/26/18at 08:43; Start 06/25/18 at 17:00 Ondansetron HCl (Zofran Odt) 4 mg PRN Q12HRS PRN PO NAUSEA/VOMITING; Start at 09:45; Stop 06/25/18 at 09:45; Status DC Guaifenesin/ Codeine Phosphate (Robitussin Ac) 5 ml PRN Q4HRS PRN PO COUGH Last administered on 06/26/18at 08:43; Start 06/25/18 at 09:45 Pantoprazole Sodium (Protonix) 40 mg DAILYAC PO Last administered on 06/26/18at 08:43; Start 06/25/18 at 10:00 Ondansetron HCl (Zofran Odt) 8 mg PRN Q12HRS PRN PO NAUSEA/VOMITING; Start at 09:45 Active Scripts Active Nitrostat (Nitroglycerin) 0.4 Mg Tab.subl 0.4 Mg SL PRN Q5MIN PRN 30 Days Atorvastatin Calcium 40 Mg Tablet 40 Mg PO QHS 28 Days [Pantoprazole] 40 MG Tablet.dr 40 Mg PO DAILYAC 30 Days Reported Delsym (Dextromethorphan Polistirex) 30 Mg/5 Ml Nola.er.12h 30 Mg PO BID PRN Zofran (Ondansetron Hcl) 8 Mg Tablet 8 Mg PO BID PRN Promethazine-Codeine Syrup (Promethazine Hcl/Codeine) 118 Ml Syrup 5 Ml PO Q4- 6HRS Lisinopril 10 Mg Tablet 10 Mg PO BID Metformin Hcl 500 Mg Tablet 500 Mg PO BIDWMEALS Vitals/I & O Vital Sign - Last 24 Hours 06/25/18 06/25/18 06/25/18 06/25/18 09:36 11:00 11:18 11:18 Temp 98.1 98.1 Pulse 87 90 Resp 16 18 B/P (MAP) 118/61 114/57 (76) Pulse Ox 92 92 O2 Delivery Room Air Room Air Room Air 06/25/18 06/25/18 06/25/18 06/25/18 12:18 15:00 15:10 15:33 Temp 97.8 97.8 Pulse 91 Resp B/P (MAP) 107/67 (80) Pulse Ox 92 94 O2 Delivery Room Air Room Air Room Air Room Air 06/25/18 06/25/18 06/25/18 06/25/18 16:00 19:00 20:15 20:30 Pulse 94 Resp 18 B/P (MAP) 124/67 (86) Pulse Ox 96 O2 Delivery Room Air Room Air Room Air 06/25/18 06/25/18 06/26/18 06/26/18 20:57 22:46 03:04 07:00 Temp 97.9 98.2 97.9 97.9 98.2 97.9 Pulse 94 91 98 87 Resp 18 18 16 B/P (MAP) 124/67 110/70 (83) 108/72 (84) 105/63 (77) Pulse Ox 95 95 96 O2 Delivery Room Air Room Air Room Air 06/26/18 06/26/18 07:50 08:43 Pulse 87 B/P (MAP) 105/63 Pulse Ox 94 O2 Delivery Room Air Intake and Output 06/25/18 06/25/18 06/26/18 14:59 22:59 06:59 Intake Total 100 ml 210 ml 360 ml Balance 100 ml 210 ml 360 ml JACKIE AKHTAR MD Jun 26, 2018 09:26
--- NOTE | 2018-06-26 10:25 | PDOC ---
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 Carotid doppler based on right bruit with 50-70% stenosis. He c/o pain on swallowing solids and orange juice, all substernal. He did not have pain on drinking milk or eating cream of wheat this morning. Plan: await GI Rounds Make GI cocktail 4 times a day when necessary GI, heme/onc, radiation oncology consulted-courtesy consult the latter two as they were providing him chemotherapy and radiation therapy PT for consideration of right AFO brace Vascular surgery to follow outpatient Home meds I have reconciled Discussed with RN Vitals Vitals Vital Signs Date Time Temp Pulse Resp B/P (MAP) Pulse Ox O2 Delivery O2 Flow Rate FiO2 06/26/18 08:43 87 105/63 06/26/18 07:50 94 Room Air 06/26/18 07:00 97.9 16 97.9 Physical Exam General: Alert, Oriented X3, Cooperative, No acute distress Lungs: Clear, Other Abdomen: Normal bowel sounds, Soft, No tenderness, No hepatosplenomegaly, No masses Extremities: No clubbing, No cyanosis, No edema, Normal pulses, No tenderness/ swelling Skin: No rashes, No breakdown, No significant lesion Labs LABS Laboratory Tests Test 06/25/18 11:39 06/25/18 16:28 06/25/18 20:34 06/25/18 21:15 Glucose (Fingerstick) 159 mg/dL (70-99) 129 mg/dL (70-99) 151 mg/dL (70-99) Urine Collection Type Unknown Urine Color Yellow Urine Clarity Clear Urine pH 6.0 Urine Specific [place] 1.015 Urine Protein Negative mg/dL (NEG-TRACE) Urine Glucose (UA) Negative mg/dL (NEG) Urine Ketones (Stick) Negative mg/dL (NEG) Urine Blood Negative (NEG) Urine Nitrite Negative (NEG) Urine Bilirubin Negative (NEG) Urine Urobilinogen Dipstick 0.2 mg/dL (0.2 mg/dL) Urine Leukocyte Esterase Negative (NEG) Urine RBC 0 /HPF (0-2) Urine WBC 0 /HPF (0-4) Urine Bacteria 0 /HPF (0-FEW) Urine Mucus Slight /LPF Urine Opiates Screen Pos (NEG) Urine Methadone Screen Neg (NEG) Urine Barbiturates Neg (NEG) Urine Phencyclidine Screen Neg (NEG) Urine Amphetamine/Methamphetamine Neg (NEG) Urine Benzodiazepines Screen Neg (NEG) Urine Cocaine Screen Neg (NEG) Urine Cannabinoids Screen Neg (NEG) Urine Ethyl Alcohol Neg (NEG) Test 06/26/18 07:44 Glucose (Fingerstick) 112 mg/dL (70-99) Assessment and Plan Assessmemt and Plan Problems Medical Problems: (1) Epigastric abdominal pain Status: Acute (2) Esophageal cancer Status: Acute Comment Review of Relevant I have reviewed the following items erica (where applicable) has been applied. Labs Laboratory Tests Test 06/24/18 12:30 06/24/18 16:55 06/24/18 21:03 06/25/18 04:40 White Blood Count 1.3 x10^3/uL (4.0-11.0) 1.2 x10^3/uL (4.0-11.0) Red Blood Count 4.44 x10^6/uL (4.30-5.70) 3.75 x10^6/uL (4.30-5.70) Hemoglobin 13.8 g/dL (13.0-17.5) 11.9 g/dL (13.0-17.5) Hematocrit 41.5 % (39.0-53.0) 35.0 % (39.0-53.0) Mean Corpuscular Volume 94 fL (79-100) 93 fL (79-100) Mean Corpuscular Hemoglobin 31 pg (25-35) 32 pg (25-35) Mean Corpuscular Hemoglobin Concent 33 g/dL (31-37) 34 g/dL (31-37) Red Cell Distribution Width 14.1 % (11.5-14.5) 14.2 % (11.5-14.5) Platelet Count 138 x10^3/uL (140-400) 125 x10^3/uL (140-400) Neutrophils (%) (Auto) 80 % (31-73) 78 % (31-73) Lymphocytes (%) (Auto) 13 % (24-48) 11 % (24-48) Monocytes (%) (Auto) 6 % (0-9) 10 % (0-9) Eosinophils (%) (Auto) 0 % (0-3) 1 % (0-3) Basophils (%) (Auto) 1 % (0-3) 1 % (0-3) Neutrophils # (Auto) 1.0 x10^3uL (1.8-7.7) 1.0 x10^3uL (1.8-7.7) Lymphocytes # (Auto) 0.2 x10^3/uL (1.0-4.8) 0.1 x10^3/uL (1.0-4.8) Monocytes # (Auto) 0.1 x10^3/uL (0.0-1.1) 0.1 x10^3/uL (0.0-1.1) Eosinophils # (Auto) 0.0 x10^3/uL (0.0-0.7) 0.0 x10^3/uL (0.0-0.7) Basophils # (Auto) 0.0 x10^3/uL (0.0-0.2) 0.0 x10^3/uL (0.0-0.2) Segmented Neutrophils % 71 % (35-66) Band Neutrophils % 15 % (0-9) Lymphocytes % 9 % (24-48) Atypical Lymphocytes % (Manual) 2 % (0-0) Monocytes % 1 % (0-10) Eosinophils % 1 % (0-5) Myelocytes % 1 % (0-0) Toxic Vacuolation Slight Platelet Estimate Adequate (ADEQUATE) Sodium Level 137 mmol/L (136-145) 133 mmol/L (136-145) Potassium Level 4.7 mmol/L (3.5-5.1) 4.8 mmol/L (3.5-5.1) Chloride Level 98 mmol/L (98-107) 97 mmol/L (98-107) Carbon Dioxide Level 27 mmol/L (21-32) 27 mmol/L (21-32) Anion Gap 12 (6-14) 9 (6-14) Blood Urea Nitrogen 23 mg/dL (8-26) 22 mg/dL (8-26) Creatinine 1.1 mg/dL (0.7-1.3) 1.0 mg/dL (0.7-1.3) Estimated GFR (Cockcroft-Gault) 64.9 72.5 BUN/Creatinine Ratio 21 (6-20) 22 (6-20) Glucose Level 179 mg/dL (70-99) 128 mg/dL (70-99) Calcium Level 9.4 mg/dL (8.5-10.1) 8.9 mg/dL (8.5-10.1) Magnesium Level 1.8 mg/dL (1.8-2.4) Total Bilirubin 0.7 mg/dL (0.2-1.0) 0.7 mg/dL (0.2-1.0) Aspartate Amino Transf (AST/SGOT) 18 U/L (15-37) 15 U/L (15-37) Alanine Aminotransferase (ALT/SGPT) 22 U/L (16-63) 20 U/L (16-63) Alkaline Phosphatase 90 U/L (46-116) 70 U/L (46-116) Creatine Kinase 49 U/L (39-308) Creatine Kinase MB (Mass) 0.6 ng/mL (0.0-3.6) Creatine Kinase MB Relative Index % (0-4) Troponin I Quantitative < 0.017 ng/mL (0.000-0.055) UB-Icz-I-Type Natriuretic Peptide 178 pg/mL (0-449) Total Protein 7.1 g/dL (6.4-8.2) 6.2 g/dL (6.4-8.2) Albumin 3.2 g/dL (3.4-5.0) 2.7 g/dL (3.4-5.0) Albumin/Globulin Ratio 0.8 (1.0-1.7) 0.8 (1.0-1.7) Lipase 324 U/L (73-393) Thyroid Stimulating Hormone (TSH) 1.404 uIU/mL (0.358-3.74) Glucose (Fingerstick) 116 mg/dL (70-99) 177 mg/dL (70-99) Test 06/25/18 08:07 06/25/18 11:39 06/25/18 16:28 06/25/18 20:34 Glucose (Fingerstick) 136 mg/dL (70-99) 159 mg/dL (70-99) 129 mg/dL (70-99) 151 mg/dL (70-99) Test 06/25/18 21:15 06/26/18 07:44 Urine Collection Type Unknown Urine Color Yellow Urine Clarity Clear Urine pH 6.0 Urine Specific [place] 1.015 Urine Protein Negative mg/dL (NEG-TRACE) Urine Glucose (UA) Negative mg/dL (NEG) Urine Ketones (Stick) Negative mg/dL (NEG) Urine Blood Negative (NEG) Urine Nitrite Negative (NEG) Urine Bilirubin Negative (NEG) Urine Urobilinogen Dipstick 0.2 mg/dL (0.2 mg/dL) Urine Leukocyte Esterase Negative (NEG) Urine RBC 0 /HPF (0-2) Urine WBC 0 /HPF (0-4) Urine Bacteria 0 /HPF (0-FEW) Urine Mucus Slight /LPF Urine Opiates Screen Pos (NEG) Urine Methadone Screen Neg (NEG) Urine Barbiturates Neg (NEG) Urine Phencyclidine Screen Neg (NEG) Urine Amphetamine/Methamphetamine Neg (NEG) Urine Benzodiazepines Screen Neg (NEG) Urine Cocaine Screen Neg (NEG) Urine Cannabinoids Screen Neg (NEG) Urine Ethyl Alcohol Neg (NEG) Glucose (Fingerstick) 112 mg/dL (70-99) Laboratory Tests Test 06/25/18 11:39 06/25/18 16:28 06/25/18 20:34 06/25/18 21:15 Glucose (Fingerstick) 159 mg/dL (70-99) 129 mg/dL (70-99) 151 mg/dL (70-99) Urine Collection Type Unknown Urine Color Yellow Urine Clarity Clear Urine pH 6.0 Urine Specific [place] 1.015 Urine Protein Negative mg/dL (NEG-TRACE) Urine Glucose (UA) Negative mg/dL (NEG) Urine Ketones (Stick) Negative mg/dL (NEG) Urine Blood Negative (NEG) Urine Nitrite Negative (NEG) Urine Bilirubin Negative (NEG) Urine Urobilinogen Dipstick 0.2 mg/dL (0.2 mg/dL) Urine Leukocyte Esterase Negative (NEG) Urine RBC 0 /HPF (0-2) Urine WBC 0 /HPF (0-4) Urine Bacteria 0 /HPF (0-FEW) Urine Mucus Slight /LPF Urine Opiates Screen Pos (NEG) Urine Methadone Screen Neg (NEG) Urine Barbiturates Neg (NEG) Urine Phencyclidine Screen Neg (NEG) Urine Amphetamine/Methamphetamine Neg (NEG) Urine Benzodiazepines Screen Neg (NEG) Urine Cocaine Screen Neg (NEG) Urine Cannabinoids Screen Neg (NEG) Urine Ethyl Alcohol Neg (NEG) Test 06/26/18 07:44 Glucose (Fingerstick) 112 mg/dL (70-99) Medications Current Medications Multi-Ingredient Mouthwash/Gargle (Gi Cocktail) 20 ml 1X ONCE SWSW Last administered on 06/24/18 13:11; Start 06/24/18 at 12:45; Stop 06/24/18 at 12:46 ; Status DC Morphine Sulfate (Morphine Sulfate) 5 mg 1X ONCE IV Last administered on 14:34; Start 06/24/18 at 12:45; Stop 06/24/18 at 12:46; Status DC Lidocaine HCl (Viscous Lidocaine) 15 ml PRN Q4HRS PRN SWSW MOUTH PAIN; Start at 16:00 Albuterol/ Ipratropium (Duoneb) 3 ml RTQID NEB Last administered on 06/26/18 07:50; Start 06/24/18 at 16:00 Guaifenesin (Robitussin Dm) 10 ml QID PO Last administered on 06/25/18at 20:57; Start 06/24/18 at 17:00 Diphenhydramine HCl (Benadryl Oral Elixir) 25 mg QHS PRN PO sleep; Start at 16:00 Morphine Sulfate (Morphine Sulfate) 1 mg PRN Q2HR PRN IV PAIN Last administered on 06/25/18at 15:33; Start 06/24/18 at 16:00 Acetaminophen/ Codeine Phosphate (Tylenol/Codeine Soln) 5 ml PRN Q6HRS PRN PO pain Last administered on 06/25/18at 11:18; Start 06/24/18 at 16:00 Sodium Chloride 1,000 ml @ 75 mls/hr 1X ONCE IV Last administered on 16:46; Start 06/24/18 at 16:00; Stop 06/25/18 at 05:19; Status DC Insulin Human Lispro (HumaLOG) 0-7 UNITS TIDWMEALS SQ ; Start 06/24/18 at 17:00 Dextrose (Dextrose 50%-Water Syringe) 12.5 gm PRN Q15MIN PRN IV SEE COMMENTS; Start 06/24/18 at 16:00 Labetalol HCl (Normodyne Iv Push) 10 mg PRN Q2HR PRN IVP HYPERTENSION, SEE COMMENTS; Start 06/24/18 at 16:00 Ondansetron HCl (Zofran) 4 mg PRN Q8HRS PRN IV NAUSEA/VOMITING Last administered on 06/24/18at 21:29; Start 06/24/18 at 17:45; Stop 06/25/18 at 17:44 ; Status DC Morphine Sulfate (Morphine Sulfate) 4 mg PRN Q2HR PRN IV PAIN; Start 06/24/18 at 17:45; Stop 06/25/18 at 17:44; Status DC Acetaminophen (Tylenol) 650 mg PRN Q4HRS PRN PO FEVER; Start 06/24/18 at 17:45 ; Stop 06/25/18 at 17:44; Status DC Multi-Ingredient Mouthwash/Gargle (Gi Cocktail) 20 ml PRN QID PRN PO CHEST PAIN Last administered on 06/25/18at 07:36; Start 06/25/18 at 07:30 Atorvastatin Calcium (Lipitor) 40 mg QHS PO Last administered on 06/25/18at 20: 57; Start 06/25/18 at 21:00 Lisinopril (Prinivil) 10 mg BID PO Last administered on 06/26/18at 08:43; Start 06/25/18 at 10:00 Nitroglycerin (Nitrostat) 0.4 mg PRN Q5MIN PRN SL CHEST PAIN; Start 06/25/18 at 09:30 Non-Formulary Medication (Dextromethorphan Polistirex (Delsym)) 30 mg BID PRN PO COUGH; Start 06/25/18 at 09:30; Status UNV Metformin HCl (Glucophage) 500 mg BIDWMEALS PO Last administered on 06/26/18at 08:43; Start 06/25/18 at 17:00 Ondansetron HCl (Zofran Odt) 4 mg PRN Q12HRS PRN PO NAUSEA/VOMITING; Start at 09:45; Stop 06/25/18 at 09:45; Status DC Guaifenesin/ Codeine Phosphate (Robitussin Ac) 5 ml PRN Q4HRS PRN PO COUGH Last administered on 06/26/18at 08:43; Start 06/25/18 at 09:45 Pantoprazole Sodium (Protonix) 40 mg DAILYAC PO Last administered on 06/26/18at 08:43; Start 06/25/18 at 10:00 Ondansetron HCl (Zofran Odt) 8 mg PRN Q12HRS PRN PO NAUSEA/VOMITING; Start at 09:45 Enoxaparin Sodium (Lovenox 40mg Syringe) 40 mg Q24H SQ ; Start 06/26/18 at 16:00 Active Scripts Active Nitrostat (Nitroglycerin) 0.4 Mg Tab.subl 0.4 Mg SL PRN Q5MIN PRN 30 Days Atorvastatin Calcium 40 Mg Tablet 40 Mg PO QHS 28 Days [Pantoprazole] 40 MG Tablet.dr 40 Mg PO DAILYAC 30 Days Reported Delsym (Dextromethorphan Polistirex) 30 Mg/5 Ml Nola.er.12h 30 Mg PO BID PRN Zofran (Ondansetron Hcl) 8 Mg Tablet 8 Mg PO BID PRN Promethazine-Codeine Syrup (Promethazine Hcl/Codeine) 118 Ml Syrup 5 Ml PO Q4- 6HRS Lisinopril 10 Mg Tablet 10 Mg PO BID Metformin Hcl 500 Mg Tablet 500 Mg PO BIDWMEALS Vitals/I & O Vital Sign - Last 24 Hours 06/25/18 06/25/18 06/25/18 06/25/18 11:00 11:18 11:18 12:18 Temp 98.1 98.1 Pulse 90 Resp B/P (MAP) 114/57 (76) Pulse Ox 92 92 O2 Delivery Room Air Room Air Room Air Room Air 06/25/18 06/25/18 06/25/18 06/25/18 15:00 15:10 15:33 16:00 Temp 97.8 97.8 Pulse 91 Resp B/P (MAP) 107/67 (80) Pulse Ox 92 94 O2 Delivery Room Air Room Air Room Air 06/25/18 06/25/18 06/25/18 06/25/18 19:00 20:15 20:30 20:57 Pulse 94 94 Resp 18 B/P (MAP) 124/67 (86) 124/67 Pulse Ox 96 O2 Delivery Room Air Room Air Room Air 06/25/18 06/26/18 06/26/18 06/26/18 22:46 03:04 07:00 07:50 Temp 97.9 98.2 97.9 97.9 98.2 97.9 Pulse 91 98 87 Resp 18 18 16 B/P (MAP) 110/70 (83) 108/72 (84) 105/63 (77) Pulse Ox 95 95 96 94 O2 Delivery Room Air Room Air Room Air Room Air 06/26/18 08:43 Pulse 87 B/P (MAP) 105/63 Intake and Output 06/25/18 06/25/18 06/26/18 15:00 23:00 07:00 Intake Total 100 ml 210 ml 360 ml Balance 100 ml 210 ml 360 ml BLUE FARRELL MD Jun 26, 2018 10:25
--- NOTE | 2018-06-26 10:46 | RAD ---
Carotid ultrasound, 06/26/2018: HISTORY: Right carotid bruit, hypertension Duplex evaluation of the carotid arteries in the neck was performed including grayscale, color-flow and spectral Doppler analysis. There are moderate scattered atherosclerotic plaques in the common carotid arteries and at the carotid bifurcations, right greater than left. The plaques are partially calcified. The peak systolic velocity in the right proximal internal carotid artery is 193 cm/s with an end-diastolic velocity of 21 cm/s and an internal carotid to common carotid artery ratio of 2.2. The peak systolic velocity and the ratio suggest narrowing in the 50-70 percent diameter range, while the end-diastolic velocity measurements suggests a lesser degree of luminal narrowing. On the left, the peak systolic velocity in the internal carotid artery is 161 cm/s with an end-diastolic velocity of 17 cm/s and an internal carotid to common carotid artery ratio of 1.5. The peak systolic velocity suggests narrowing in the 50-70 percent diameter range while, while both the internal carotid to common carotid artery ratio and the end-diastolic velocity measurements suggest a lesser degree of narrowing. Correlation with the color images suggests that narrowing is probably in the 0-50 percent diameter range. Antegrade flow is present in both vertebral arteries. IMPRESSION: Moderate atherosclerotic plaquing at both carotid bifurcations, right greater than left, with narrowing of the proximal right internal carotid artery in the 50-70 percent diameter range and narrowing the proximal left internal carotid artery in the 0-50 percent diameter range. Note: Stenosis calculations for CT, MRA and conventional angiography are based upon determination of the distal ICA diameter in accordance with the NASCET methodology. Stenosis calculations for Doppler studies are derived from validated velocity criteria which are known to correlate with NASCET methodology of determining stenosis. Electronically signed by: Renato Melissa MD (06/26/2018 10:43 AM) [facility]
[2018-06-26 11:00] VITALS: BP 105/61
--- NOTE | 2018-06-26 12:53 | PDOC ---
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 Currently undergoing pre operative chemo and radiation. Day 22 of 25 day course of radiation as of 06/20. Admitted with new onset of chest burning with eating some foods normal swallowing, one episode of vomiting with no heme and new right foot drop. Tolerating soft diet now with persistent stable chest burning. He does not like symptomatic treatment with "triple mix". Foot drop felt to be likely due to peroneal nerve injury when seen by neurology. wt now 157 was 157.4 in our clinic 06/19/2018. Lab 06/25 Hb 11.9 wbc 1.2K Plat 125K Chem on admit Na 133 K 4.8 Cr 1.0 Albumin 2.7 Impression: Radiation esophagitis and treatment related leukopenia. We will continue to hold treatment for now. Continue current symptomatic treatment for now with soft diet. I encouraged him to push oral intake to avoid need for IVF or PEG tube placement. Will follow for now, consider resuming treatment as early as 06/28/2018. SLIME CHICAS MD Jun 26, 2018 12:53
--- NOTE | 2018-06-26 13:00 | EKG ---
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
[2018-06-26 15:00] VITALS: BP 105/72
[2018-06-26] MEDS: MORPHINE SULFATE 4 MG/ML VIAL. IV PRN (15:46)
--- NOTE | 2018-06-26 16:51 | PDOC ---
G I PROGRESS NOTE Subjective Still with odynophagia. Dislikes GI cocktail. Physical Exam Lungs clear. RRR Abdomen soft, not tender nor distended. Review of Relevant I have reviewed the following items erica (where applicable) has been applied. Labs Laboratory Tests Test 06/24/18 16:55 06/24/18 21:03 06/25/18 04:40 06/25/18 08:07 Glucose (Fingerstick) 116 mg/dL (70-99) 177 mg/dL (70-99) 136 mg/dL (70-99) White Blood Count 1.2 x10^3/uL (4.0-11.0) Red Blood Count 3.75 x10^6/uL (4.30-5.70) Hemoglobin 11.9 g/dL (13.0-17.5) Hematocrit 35.0 % (39.0-53.0) Mean Corpuscular Volume 93 fL (79-100) Mean Corpuscular Hemoglobin 32 pg (25-35) Mean Corpuscular Hemoglobin Concent 34 g/dL (31-37) Red Cell Distribution Width 14.2 % (11.5-14.5) Platelet Count 125 x10^3/uL (140-400) Neutrophils (%) (Auto) 78 % (31-73) Lymphocytes (%) (Auto) 11 % (24-48) Monocytes (%) (Auto) 10 % (0-9) Eosinophils (%) (Auto) 1 % (0-3) Basophils (%) (Auto) 1 % (0-3) Neutrophils # (Auto) 1.0 x10^3uL (1.8-7.7) Lymphocytes # (Auto) 0.1 x10^3/uL (1.0-4.8) Monocytes # (Auto) 0.1 x10^3/uL (0.0-1.1) Eosinophils # (Auto) 0.0 x10^3/uL (0.0-0.7) Basophils # (Auto) 0.0 x10^3/uL (0.0-0.2) Sodium Level 133 mmol/L (136-145) Potassium Level 4.8 mmol/L (3.5-5.1) Chloride Level 97 mmol/L (98-107) Carbon Dioxide Level 27 mmol/L (21-32) Anion Gap 9 (6-14) Blood Urea Nitrogen 22 mg/dL (8-26) Creatinine 1.0 mg/dL (0.7-1.3) Estimated GFR (Cockcroft-Gault) 72.5 BUN/Creatinine Ratio 22 (6-20) Glucose Level 128 mg/dL (70-99) Calcium Level 8.9 mg/dL (8.5-10.1) Total Bilirubin 0.7 mg/dL (0.2-1.0) Aspartate Amino Transf (AST/SGOT) 15 U/L (15-37) Alanine Aminotransferase (ALT/SGPT) 20 U/L (16-63) Alkaline Phosphatase 70 U/L (46-116) Total Protein 6.2 g/dL (6.4-8.2) Albumin 2.7 g/dL (3.4-5.0) Albumin/Globulin Ratio 0.8 (1.0-1.7) Test 06/25/18 11:39 06/25/18 16:28 06/25/18 20:34 06/25/18 21:15 Glucose (Fingerstick) 159 mg/dL (70-99) 129 mg/dL (70-99) 151 mg/dL (70-99) Urine Collection Type Unknown Urine Color Yellow Urine Clarity Clear Urine pH 6.0 Urine Specific [place] 1.015 Urine Protein Negative mg/dL (NEG-TRACE) Urine Glucose (UA) Negative mg/dL (NEG) Urine Ketones (Stick) Negative mg/dL (NEG) Urine Blood Negative (NEG) Urine Nitrite Negative (NEG) Urine Bilirubin Negative (NEG) Urine Urobilinogen Dipstick 0.2 mg/dL (0.2 mg/dL) Urine Leukocyte Esterase Negative (NEG) Urine RBC 0 /HPF (0-2) Urine WBC 0 /HPF (0-4) Urine Bacteria 0 /HPF (0-FEW) Urine Mucus Slight /LPF Urine Opiates Screen Pos (NEG) Urine Methadone Screen Neg (NEG) Urine Barbiturates Neg (NEG) Urine Phencyclidine Screen Neg (NEG) Urine Amphetamine/Methamphetamine Neg (NEG) Urine Benzodiazepines Screen Neg (NEG) Urine Cocaine Screen Neg (NEG) Urine Cannabinoids Screen Neg (NEG) Urine Ethyl Alcohol Neg (NEG) Test 06/26/18 07:44 06/26/18 12:02 Glucose (Fingerstick) 112 mg/dL (70-99) 115 mg/dL (70-99) Laboratory Tests Test 06/25/18 20:34 06/25/18 21:15 06/26/18 07:44 06/26/18 12:02 Glucose (Fingerstick) 151 mg/dL (70-99) 112 mg/dL (70-99) 115 mg/dL (70-99) Urine Collection Type Unknown Urine Color Yellow Urine Clarity Clear Urine pH 6.0 Urine Specific [place] 1.015 Urine Protein Negative mg/dL (NEG-TRACE) Urine Glucose (UA) Negative mg/dL (NEG) Urine Ketones (Stick) Negative mg/dL (NEG) Urine Blood Negative (NEG) Urine Nitrite Negative (NEG) Urine Bilirubin Negative (NEG) Urine Urobilinogen Dipstick 0.2 mg/dL (0.2 mg/dL) Urine Leukocyte Esterase Negative (NEG) Urine RBC 0 /HPF (0-2) Urine WBC 0 /HPF (0-4) Urine Bacteria 0 /HPF (0-FEW) Urine Mucus Slight /LPF Urine Opiates Screen Pos (NEG) Urine Methadone Screen Neg (NEG) Urine Barbiturates Neg (NEG) Urine Phencyclidine Screen Neg (NEG) Urine Amphetamine/Methamphetamine Neg (NEG) Urine Benzodiazepines Screen Neg (NEG) Urine Cocaine Screen Neg (NEG) Urine Cannabinoids Screen Neg (NEG) Urine Ethyl Alcohol Neg (NEG) Still neutropenic. Vitals/I & O Vital Sign - Last 24 Hours 06/25/18 06/25/18 06/25/18 06/25/18 19:00 20:15 20:30 20:57 Pulse 94 94 Resp 18 B/P (MAP) 124/67 (86) 124/67 Pulse Ox 96 O2 Delivery Room Air Room Air Room Air 06/25/18 06/26/18 06/26/18 06/26/18 22:46 03:04 07:00 07:50 Temp 97.9 98.2 97.9 97.9 98.2 97.9 Pulse 91 98 87 Resp 18 18 16 B/P (MAP) 110/70 (83) 108/72 (84) 105/63 (77) Pulse Ox 95 95 96 94 O2 Delivery Room Air Room Air Room Air Room Air 06/26/18 06/26/18 06/26/18 06/26/18 08:00 08:43 11:00 11:30 Temp 98.3 98.3 Pulse 87 89 Resp 19 B/P (MAP) 105/63 105/61 (76) Pulse Ox 97 O2 Delivery Room Air Room Air Room Air 06/26/18 06/26/18 06/26/18 15:00 15:32 15:46 Temp 98.5 98.5 Pulse 95 Resp 18 20 B/P (MAP) 105/72 (83) Pulse Ox 93 94 93 O2 Delivery Room Air Room Air Room Air Intake and Output 06/25/18 06/25/18 06/26/18 15:00 23:00 07:00 Intake Total 100 ml 210 ml 360 ml Balance 100 ml 210 ml 360 ml Problem List Problems Medical Problems: (1) Epigastric abdominal pain Status: Acute (2) Esophageal cancer Status: Acute Assessment Esophageal cancer, not with odynophagia after radiation; agree radiation esophagitis likely. Neutropenia. Plan of Care Note Stop GI cocktail. Continue the viscous lidocaine. Expert opinion favors use of metoclopramide. Will see. ALEX TAYLOR MD Jun 26, 2018 16:51
[2018-06-26] MEDS: ENOXAPARIN 40 MG/0.4 ML SYRINGE. SQ SCH (17:12)
[2018-06-26] MEDS: LIDOCAINE 2% VISCOUS 15 ML SOLUTION. SWSW SCH ×2 (17:16→21:42)
[2018-06-26 19:00] VITALS: BP 86/49
[2018-06-26] MEDS: ATORVASTATIN CALCIUM 40 MG TABLET. PO SCH (21:43)
[2018-06-26 23:00] VITALS: BP 166/109
[2018-06-27 03:00] VITALS: BP 97/55
[2018-06-27] MEDS: guaiFENesin/CODEINE 100mg/10mg 5 ML LIQUID PO PRN (04:22)
[2018-06-27 07:00] VITALS: BP 96/58
[2018-06-27] MEDS: IPRATRPIUM/ALBUTEROL 0.5/2.5MG 3 ML NEBU. NEB SCH ×4 (07:16→20:34)
[2018-06-27] MEDS: INSULIN LISPRO 300 UNITS/3 ML INSULN.PEN. SQ SCH ×3 (08:00→16:53)
--- NOTE | 2018-06-27 08:15 | PDOC ---
SUBJECTIVE Subjective S: Doing fine this am, on pain meds prn, morphine helps, does not like GI cocktail, radiation on hold, possibly give tomorrow, last chemotherapy and radiation Tuesday of last wk O: Physical exam: Gen.: Elderly man, resting in bed Skin: Warm and dry Psychiatric: Pleasant mood and affect Neurologic: right foot drop Labs: White count 1.2, neutrophils 1000, hemoglobin 11.9, platelets 125 on last check Rads: X-ray with no acute cardiopulmonary disease Assessment and Plan: 78-year-old man with T3 N1 M0 stage III GE junction adenocarcinoma on neoadjuvant carboplatin and paclitaxel weekly with daily radiation, both last dosed on 06/20/2018, with therapy on hold with current dysphagia and chest pain related to treatment (radiation esophagitis), better on pain meds, does not like the GI cocktail, and has new right foot drop Right footdrop: Neurology has been consulted, 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 OBJECTIVE Vital Signs Vital Signs Date Time Temp Pulse Resp B/P (MAP) Pulse Ox O2 Delivery O2 Flow Rate FiO2 06/27/18 07:00 98.3 82 16 96/58 (71) 97 Room Air 98.3 06/27/18 03:00 98.3 87 17 97/55 (69) 98 Room Air 98.3 06/26/18 23:30 95 166/109 06/26/18 23:00 98.3 95 18 166/109 (128) 95 Room Air 98.3 06/26/18 20:18 Room Air 06/26/18 19:52 98 Room Air 06/26/18 19:00 97.8 103 18 86/49 (61) 95 Room Air 97.8 06/26/18 16:30 20 93 Room Air 06/26/18 15:46 20 93 Room Air 06/26/18 15:32 94 Room Air 06/26/18 15:00 98.5 95 18 105/72 (83) 93 Room Air 98.5 06/26/18 11:30 Room Air 06/26/18 11:00 98.3 89 19 105/61 (76) 97 Room Air 98.3 06/26/18 08:43 87 105/63 I & O Intake and Output 06/27/18 07:00 Intake Total 720 ml Output Total 0 ml Balance 720 ml Intake Oral 720 ml Output Urine Total 0 ml # Voids 1 COMMENT Lab Laboratory Tests Test 06/26/18 12:02 06/26/18 16:59 06/26/18 20:45 06/27/18 07:14 Glucose (Fingerstick) 115 mg/dL (70-99) 124 mg/dL (70-99) 130 mg/dL (70-99) 110 mg/dL (70-99) JACKIE AKHTAR MD Jun 27, 2018 08:15
[2018-06-27] MEDS: guaiFENesin DM 200MG/20MG 10 ML SYRUP PO SCH ×4 (08:26→21:09)
[2018-06-27] MEDS: LIDOCAINE 2% VISCOUS 15 ML SOLUTION. SWSW SCH ×4 (08:27→21:00)
[2018-06-27] MEDS: PANTOPRAZOLE 40 MG TABLET.DR. PO SCH (08:27)
[2018-06-27] MEDS: metFORMIN 500 MG TABLET PO SCH ×2 (08:27→16:52)
[2018-06-27] MEDS: LISINOPRIL 10 MG TABLET PO SCH ×2 (08:28→21:10)
--- NOTE | 2018-06-27 08:31 | PDOC ---
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 Carotid doppler based on right bruit with 50-70% stenosis. He c/o pain on swallowing solids and orange juice, all substernal. He did not have pain on drinking milk or eating cream of wheat this morning. Still with right foot drop. Has less pain today after viscous lidocaine order. Plan: await GI Rounds Make GI cocktail 4 times a day when necessary GI, heme/onc, radiation oncology consulted-courtesy consult the latter two as they were providing him chemotherapy and radiation therapy. Needs it tomorrow PT for consideration of right AFO brace Vascular surgery to follow outpatient Home meds I have reconciled Discussed with RN Vitals Vitals Vital Signs Date Time Temp Pulse Resp B/P (MAP) Pulse Ox O2 Delivery O2 Flow Rate FiO2 06/27/18 07:00 98.3 82 16 96/58 (71) 97 Room Air 98.3 Physical Exam General: Alert, Oriented X3, Cooperative, No acute distress Lungs: Clear, Other Abdomen: Normal bowel sounds, Soft, No tenderness, No hepatosplenomegaly, No masses Extremities: No clubbing, No cyanosis, No edema, Normal pulses, No tenderness/ swelling Skin: No rashes, No breakdown, No significant lesion Labs LABS Laboratory Tests Test 06/26/18 12:02 06/26/18 16:59 06/26/18 20:45 06/27/18 07:14 Glucose (Fingerstick) 115 mg/dL (70-99) 124 mg/dL (70-99) 130 mg/dL (70-99) 110 mg/dL (70-99) Assessment and Plan Assessmemt and Plan Problems Medical Problems: (1) Epigastric abdominal pain Status: Acute (2) Esophageal cancer Status: Acute Comment Review of Relevant I have reviewed the following items erica (where applicable) has been applied. Labs Laboratory Tests Test 06/25/18 11:39 06/25/18 16:28 06/25/18 20:34 06/25/18 21:15 Glucose (Fingerstick) 159 mg/dL (70-99) 129 mg/dL (70-99) 151 mg/dL (70-99) Urine Collection Type Unknown Urine Color Yellow Urine Clarity Clear Urine pH 6.0 Urine Specific [place] 1.015 Urine Protein Negative mg/dL (NEG-TRACE) Urine Glucose (UA) Negative mg/dL (NEG) Urine Ketones (Stick) Negative mg/dL (NEG) Urine Blood Negative (NEG) Urine Nitrite Negative (NEG) Urine Bilirubin Negative (NEG) Urine Urobilinogen Dipstick 0.2 mg/dL (0.2 mg/dL) Urine Leukocyte Esterase Negative (NEG) Urine RBC 0 /HPF (0-2) Urine WBC 0 /HPF (0-4) Urine Bacteria 0 /HPF (0-FEW) Urine Mucus Slight /LPF Urine Opiates Screen Pos (NEG) Urine Methadone Screen Neg (NEG) Urine Barbiturates Neg (NEG) Urine Phencyclidine Screen Neg (NEG) Urine Amphetamine/Methamphetamine Neg (NEG) Urine Benzodiazepines Screen Neg (NEG) Urine Cocaine Screen Neg (NEG) Urine Cannabinoids Screen Neg (NEG) Urine Ethyl Alcohol Neg (NEG) Test 06/26/18 07:44 06/26/18 12:02 06/26/18 16:59 06/26/18 20:45 Glucose (Fingerstick) 112 mg/dL (70-99) 115 mg/dL (70-99) 124 mg/dL (70-99) 130 mg/dL (70-99) Test 06/27/18 07:14 Glucose (Fingerstick) 110 mg/dL (70-99) Laboratory Tests Test 06/26/18 12:02 06/26/18 16:59 06/26/18 20:45 06/27/18 07:14 Glucose (Fingerstick) 115 mg/dL (70-99) 124 mg/dL (70-99) 130 mg/dL (70-99) 110 mg/dL (70-99) Medications Current Medications Multi-Ingredient Mouthwash/Gargle (Gi Cocktail) 20 ml 1X ONCE SWSW Last administered on 06/24/18at 13:11; Start 06/24/18 at 12:45; Stop 06/24/18 at 12:46 ; Status DC Morphine Sulfate (Morphine Sulfate) 5 mg 1X ONCE IV Last administered on at 14:34; Start 06/24/18 at 12:45; Stop 06/24/18 at 12:46; Status DC Lidocaine HCl (Viscous Lidocaine) 15 ml PRN Q4HRS PRN SWSW MOUTH PAIN; Start at 16:00; Stop 06/26/18 at 16:55; Status DC Albuterol/ Ipratropium (Duoneb) 3 ml RTQID NEB Last administered on 06/27/18at 07:16; Start 06/24/18 at 16:00 Guaifenesin (Robitussin Dm) 10 ml QID PO Last administered on 06/26/18at 21:43; Start 06/24/18 at 17:00 Diphenhydramine HCl (Benadryl Oral Elixir) 25 mg QHS PRN PO sleep; Start at 16:00 Morphine Sulfate (Morphine Sulfate) 1 mg PRN Q2HR PRN IV PAIN Last administered on 06/26/18at 15:46; Start 06/24/18 at 16:00 Acetaminophen/ Codeine Phosphate (Tylenol/Codeine Soln) 5 ml PRN Q6HRS PRN PO pain Last administered on 06/25/18at 11:18; Start 06/24/18 at 16:00 Sodium Chloride 1,000 ml @ 75 mls/hr 1X ONCE IV Last administered on at 16:46; Start 06/24/18 at 16:00; Stop 06/25/18 at 05:19; Status DC Insulin Human Lispro (HumaLOG) 0-7 UNITS TIDWMEALS SQ ; Start 06/24/18 at 17:00 Dextrose (Dextrose 50%-Water Syringe) 12.5 gm PRN Q15MIN PRN IV SEE COMMENTS; Start 06/24/18 at 16:00 Labetalol HCl (Normodyne Iv Push) 10 mg PRN Q2HR PRN IVP HYPERTENSION, SEE COMMENTS; Start 06/24/18 at 16:00 Ondansetron HCl (Zofran) 4 mg PRN Q8HRS PRN IV NAUSEA/VOMITING Last administered on 06/24/18at 21:29; Start 06/24/18 at 17:45; Stop 06/25/18 at 17:44 ; Status DC Morphine Sulfate (Morphine Sulfate) 4 mg PRN Q2HR PRN IV PAIN; Start 06/24/18 at 17:45; Stop 06/25/18 at 17:44; Status DC Acetaminophen (Tylenol) 650 mg PRN Q4HRS PRN PO FEVER; Start 06/24/18 at 17:45 ; Stop 06/25/18 at 17:44; Status DC Multi-Ingredient Mouthwash/Gargle (Gi Cocktail) 20 ml PRN QID PRN PO CHEST PAIN Last administered on 06/25/18at 07:36; Start 06/25/18 at 07:30; Stop at 16:55; Status DC Atorvastatin Calcium (Lipitor) 40 mg QHS PO Last administered on 06/26/18at 21: 43; Start 06/25/18 at 21:00 Lisinopril (Prinivil) 10 mg BID PO Last administered on 06/26/18at 23:30; Start 06/25/18 at 10:00 Nitroglycerin (Nitrostat) 0.4 mg PRN Q5MIN PRN SL CHEST PAIN; Start 06/25/18 at 09:30 Non-Formulary Medication (Dextromethorphan Polistirex (Delsym)) 30 mg BID PRN PO COUGH; Start 06/25/18 at 09:30; Status UNV Metformin HCl (Glucophage) 500 mg BIDWMEALS PO Last administered on 06/26/18at 17:12; Start 06/25/18 at 17:00 Ondansetron HCl (Zofran Odt) 4 mg PRN Q12HRS PRN PO NAUSEA/VOMITING; Start at 09:45; Stop 06/25/18 at 09:45; Status DC Guaifenesin/ Codeine Phosphate (Robitussin Ac) 5 ml PRN Q4HRS PRN PO COUGH Last administered on 06/27/18at 04:22; Start 06/25/18 at 09:45 Pantoprazole Sodium (Protonix) 40 mg DAILYAC PO Last administered on 06/26/18at 08:43; Start 06/25/18 at 10:00 Ondansetron HCl (Zofran Odt) 8 mg PRN Q12HRS PRN PO NAUSEA/VOMITING; Start at 09:45 Enoxaparin Sodium (Lovenox 40mg Syringe) 40 mg Q24H SQ Last administered on at 17:12; Start 06/26/18 at 16:00 Lidocaine HCl (Viscous Lidocaine) 15 ml TIDACHC SWSW Last administered on at 21:42; Start 06/26/18 at 17:00 Active Scripts Active Nitrostat (Nitroglycerin) 0.4 Mg Tab.subl 0.4 Mg SL PRN Q5MIN PRN 30 Days Atorvastatin Calcium 40 Mg Tablet 40 Mg PO QHS 28 Days [Pantoprazole] 40 MG Tablet.dr 40 Mg PO DAILYAC 30 Days Reported Delsym (Dextromethorphan Polistirex) 30 Mg/5 Ml [place].er.12h 30 Mg PO BID PRN Zofran (Ondansetron Hcl) 8 Mg Tablet 8 Mg PO BID PRN Promethazine-Codeine Syrup (Promethazine Hcl/Codeine) 118 Ml Syrup 5 Ml PO Q4- 6HRS Lisinopril 10 Mg Tablet 10 Mg PO BID Metformin Hcl 500 Mg Tablet 500 Mg PO BIDWMEALS Vitals/I & O Vital Sign - Last 24 Hours 06/26/18 06/26/18 06/26/18 06/26/18 08:43 11:00 11:30 15:00 Temp 98.3 98.5 98.3 98.5 Pulse 87 89 95 Resp 19 18 B/P (MAP) 105/63 105/61 (76) 105/72 (83) Pulse Ox 97 93 O2 Delivery Room Air Room Air Room Air 06/26/18 06/26/18 06/26/18 06/26/18 15:32 15:46 16:30 19:00 Temp 97.8 97.8 Pulse 103 Resp 20 20 18 B/P (MAP) 86/49 (61) Pulse Ox 94 93 93 95 O2 Delivery Room Air Room Air Room Air Room Air 06/26/18 06/26/18 06/26/18 06/26/18 19:52 20:18 23:00 23:30 Temp 98.3 98.3 Pulse 95 95 Resp 18 B/P (MAP) 166/109 (128) 166/109 Pulse Ox 98 95 O2 Delivery Room Air Room Air Room Air 06/27/18 06/27/18 03:00 07:00 Temp 98.3 98.3 98.3 98.3 Pulse 87 82 Resp 17 16 B/P (MAP) 97/55 (69) 96/58 (71) Pulse Ox 98 97 O2 Delivery Room Air Room Air Intake and Output 06/26/18 06/26/18 06/27/18 15:00 23:00 07:00 Intake Total 420 ml 300 ml Output Total 0 ml Balance 420 ml 300 ml 0 ml BLUE FARRELL MD Jun 27, 2018 08:31
--- NOTE | 2018-06-27 08:50 | PDOC ---
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 Bruit, Carotid Doppler negative Plan No need for imaging of the spine Keep pressure off his right knee when sitting and lying, and should not cross his knees. May need step stool for toilet He may need ankle-foot orthosis, hold for now Subjective Still having some sternal pain Objective Vital Signs Date Time Temp Pulse Resp B/P (MAP) Pulse Ox O2 Delivery O2 Flow Rate FiO2 06/27/18 08:28 82 96/58 06/27/18 07:00 98.3 16 97 Room Air 98.3 Intake and Output 06/27/18 07:00 Intake Total 720 ml Output Total 0 ml Balance 720 ml Intake Oral 720 ml Output Urine Total 0 ml # Voids 1 PHYSICAL EXAM Alert. Oriented to time, place and person. PERRL. EOMI. CN: no focal findings. Muscle tone: normal. Muscle strength: 3/5 right foot drop, otherwise normal DTR: 1+ Plantar reflex: flexor Gait: not examined in bed. Sensory exam: no abnormal findings. No cerebellar signs elicited. Review of Relevant I have reviewed the following items erica (where applicable) has been applied. Labs Laboratory Tests Test 06/25/18 11:39 06/25/18 16:28 06/25/18 20:34 06/25/18 21:15 Glucose (Fingerstick) 159 mg/dL (70-99) 129 mg/dL (70-99) 151 mg/dL (70-99) Urine Collection Type Unknown Urine Color Yellow Urine Clarity Clear Urine pH 6.0 Urine Specific [place] 1.015 Urine Protein Negative mg/dL (NEG-TRACE) Urine Glucose (UA) Negative mg/dL (NEG) Urine Ketones (Stick) Negative mg/dL (NEG) Urine Blood Negative (NEG) Urine Nitrite Negative (NEG) Urine Bilirubin Negative (NEG) Urine Urobilinogen Dipstick 0.2 mg/dL (0.2 mg/dL) Urine Leukocyte Esterase Negative (NEG) Urine RBC 0 /HPF (0-2) Urine WBC 0 /HPF (0-4) Urine Bacteria 0 /HPF (0-FEW) Urine Mucus Slight /LPF Urine Opiates Screen Pos (NEG) Urine Methadone Screen Neg (NEG) Urine Barbiturates Neg (NEG) Urine Phencyclidine Screen Neg (NEG) Urine Amphetamine/Methamphetamine Neg (NEG) Urine Benzodiazepines Screen Neg (NEG) Urine Cocaine Screen Neg (NEG) Urine Cannabinoids Screen Neg (NEG) Urine Ethyl Alcohol Neg (NEG) Test 06/26/18 07:44 06/26/18 12:02 06/26/18 16:59 06/26/18 20:45 Glucose (Fingerstick) 112 mg/dL (70-99) 115 mg/dL (70-99) 124 mg/dL (70-99) 130 mg/dL (70-99) Test 06/27/18 07:14 Glucose (Fingerstick) 110 mg/dL (70-99) Laboratory Tests Test 06/26/18 12:02 06/26/18 16:59 06/26/18 20:45 06/27/18 07:14 Glucose (Fingerstick) 115 mg/dL (70-99) 124 mg/dL (70-99) 130 mg/dL (70-99) 110 mg/dL (70-99) Medications Current Medications Multi-Ingredient Mouthwash/Gargle (Gi Cocktail) 20 ml 1X ONCE SWSW Last administered on 06/24/18at 13:11; Start 06/24/18 at 12:45; Stop 06/24/18 at 12:46 ; Status DC Morphine Sulfate (Morphine Sulfate) 5 mg 1X ONCE IV Last administered on at 14:34; Start 06/24/18 at 12:45; Stop 06/24/18 at 12:46; Status DC Lidocaine HCl (Viscous Lidocaine) 15 ml PRN Q4HRS PRN SWSW MOUTH PAIN; Start at 16:00; Stop 06/26/18 at 16:55; Status DC Albuterol/ Ipratropium (Duoneb) 3 ml RTQID NEB Last administered on 06/27/18at 07:16; Start 06/24/18 at 16:00 Guaifenesin (Robitussin Dm) 10 ml QID PO Last administered on 06/27/18at 08:26; Start 06/24/18 at 17:00 Diphenhydramine HCl (Benadryl Oral Elixir) 25 mg QHS PRN PO sleep; Start at 16:00 Morphine Sulfate (Morphine Sulfate) 1 mg PRN Q2HR PRN IV PAIN Last administered on 06/26/18at 15:46; Start 06/24/18 at 16:00 Acetaminophen/ Codeine Phosphate (Tylenol/Codeine Soln) 5 ml PRN Q6HRS PRN PO pain Last administered on 06/25/18 11:18; Start 06/24/18 at 16:00 Sodium Chloride 1,000 ml @ 75 mls/hr 1X ONCE IV Last administered on at 16:46; Start 06/24/18 at 16:00; Stop 06/25/18 at 05:19; Status DC Insulin Human Lispro (HumaLOG) 0-7 UNITS TIDWMEALS SQ ; Start 06/24/18 at 17:00 Dextrose (Dextrose 50%-Water Syringe) 12.5 gm PRN Q15MIN PRN IV SEE COMMENTS; Start 06/24/18 at 16:00 Labetalol HCl (Normodyne Iv Push) 10 mg PRN Q2HR PRN IVP HYPERTENSION, SEE COMMENTS; Start 06/24/18 at 16:00 Ondansetron HCl (Zofran) 4 mg PRN Q8HRS PRN IV NAUSEA/VOMITING Last administered on 06/24/18at 21:29; Start 06/24/18 at 17:45; Stop 06/25/18 at 17:44 ; Status DC Morphine Sulfate (Morphine Sulfate) 4 mg PRN Q2HR PRN IV PAIN; Start 06/24/18 at 17:45; Stop 06/25/18 at 17:44; Status DC Acetaminophen (Tylenol) 650 mg PRN Q4HRS PRN PO FEVER; Start 06/24/18 at 17:45 ; Stop 06/25/18 at 17:44; Status DC Multi-Ingredient Mouthwash/Gargle (Gi Cocktail) 20 ml PRN QID PRN PO CHEST PAIN Last administered on 06/25/18at 07:36; Start 06/25/18 at 07:30; Stop at 16:55; Status DC Atorvastatin Calcium (Lipitor) 40 mg QHS PO Last administered on 06/26/18at 21: 43; Start 06/25/18 at 21:00 Lisinopril (Prinivil) 10 mg BID PO Last administered on 06/26/18at 23:30; Start 06/25/18 at 10:00 Nitroglycerin (Nitrostat) 0.4 mg PRN Q5MIN PRN SL CHEST PAIN; Start 06/25/18 at 09:30 Non-Formulary Medication (Dextromethorphan Polistirex (Delsym)) 30 mg BID PRN PO COUGH; Start 06/25/18 at 09:30; Status UNV Metformin HCl (Glucophage) 500 mg BIDWMEALS PO Last administered on 06/27/18 08:27; Start 06/25/18 at 17:00 Ondansetron HCl (Zofran Odt) 4 mg PRN Q12HRS PRN PO NAUSEA/VOMITING; Start at 09:45; Stop 06/25/18 at 09:45; Status DC Guaifenesin/ Codeine Phosphate (Robitussin Ac) 5 ml PRN Q4HRS PRN PO COUGH Last administered on 06/27/18 04:22; Start 06/25/18 at 09:45 Pantoprazole Sodium (Protonix) 40 mg DAILYAC PO Last administered on 06/27/18 08:27; Start 06/25/18 at 10:00 Ondansetron HCl (Zofran Odt) 8 mg PRN Q12HRS PRN PO NAUSEA/VOMITING; Start at 09:45 Enoxaparin Sodium (Lovenox 40mg Syringe) 40 mg Q24H SQ Last administered on 17:12; Start 06/26/18 at 16:00 Lidocaine HCl (Viscous Lidocaine) 15 ml TIDACHC SWSW Last administered on 08:27; Start 06/26/18 at 17:00 Active Scripts Active Nitrostat (Nitroglycerin) 0.4 Mg Tab.subl 0.4 Mg SL PRN Q5MIN PRN 30 Days Atorvastatin Calcium 40 Mg Tablet 40 Mg PO QHS 28 Days [Pantoprazole] 40 MG Tablet.dr 40 Mg PO DAILYAC 30 Days Reported Delsym (Dextromethorphan Polistirex) 30 Mg/5 Ml [place]ola.er.12h 30 Mg PO BID PRN Zofran (Ondansetron Hcl) 8 Mg Tablet 8 Mg PO BID PRN Promethazine-Codeine Syrup (Promethazine Hcl/Codeine) 118 Ml Syrup 5 Ml PO Q4- 6HRS Lisinopril 10 Mg Tablet 10 Mg PO BID Metformin Hcl 500 Mg Tablet 500 Mg PO BIDWMEALS Vitals/I & O Vital Sign - Last 24 Hours 06/26/18 06/26/18 06/26/18 06/26/18 11:00 11:30 15:00 15:32 Temp 98.3 98.5 98.3 98.5 Pulse 89 95 Resp 19 18 B/P (MAP) 105/61 (76) 105/72 (83) Pulse Ox 97 93 94 O2 Delivery Room Air Room Air Room Air Room Air 06/26/18 06/26/18 06/26/18 06/26/18 15:46 16:30 19:00 19:52 Temp 97.8 97.8 Pulse 103 Resp 18 B/P (MAP) 86/49 (61) Pulse Ox 93 93 95 98 O2 Delivery Room Air Room Air Room Air Room Air 06/26/18 06/26/18 06/26/18 06/27/18 20:18 23:00 23:30 03:00 Temp 98.3 98.3 98.3 98.3 Pulse 95 95 87 Resp 18 17 B/P (MAP) 166/109 (128) 166/109 97/55 (69) Pulse Ox 95 98 O2 Delivery Room Air Room Air Room Air 06/27/18 06/27/18 07:00 08:28 Temp 98.3 98.3 Pulse 82 82 Resp 16 B/P (MAP) 96/58 (71) 96/58 Pulse Ox 97 O2 Delivery Room Air Intake and Output 06/26/18 06/26/18 06/27/18 15:00 23:00 07:00 Intake Total 420 ml 300 ml Output Total 0 ml Balance 420 ml 300 ml 0 ml PRAMOD CARLISLE MD Jun 27, 2018 08:50
[2018-06-27 10:59] VITALS: BP 114/61
[2018-06-27 11:02] LABS: BASO % 1 % (0-3); EOS % 0 % (0-3); HEMATOCRIT 34.2 % (39.0-53.0); HEMOGLOBIN 11.6 g/dL (13.0-17.5); LYMPH # 0.2 x10^3/uL (1.0-4.8); LYMPH % 11 % (24-48); MEAN CORPUSCULAR HEMOGLOBIN 31 pg (25-35); MEAN CORPUSCULAR HGB CONC 34 g/dL (31-37); MEAN CORPUSCULAR VOLUME 92 fL (79-100); MONO # 0.2 x10^3/uL (0.0-1.1); MONO % 13 % (0-9); NEUT # 1.2 x10^3uL (1.8-7.7); NEUT % 74 % (31-73); PLATELET COUNT 147 x10^3/uL (140-400)
[2018-06-27 11:06] LABS: WHITE BLOOD COUNT 1.6 x10^3/uL (4.0-11.0)
[2018-06-27 11:15] LABS: CALCIUM 8.7 mg/dL (8.5-10.1); CREATININE 1.1 mg/dL (0.7-1.3); GFR 64.9
--- NOTE | 2018-06-27 12:58 | PDOC ---
Subjective: Subjective: Seen earlier this morning before [employer] was down. Tells me no pain with eating today. 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 -- Better (?with lidocaine), continue same. STELLA YIP Jun 27, 2018 12:58
[2018-06-27 14:55] VITALS: BP 103/65
--- NOTE | 2018-06-27 15:40 | PDOC ---
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 Currently undergoing pre operative chemo and radiation. Day 22 of 25 day course of radiation as of 06/20. Admitted with new onset of chest burning with eating some foods normal swallowing, one episode of vomiting with no heme and new right foot drop. Tolerating soft diet now with persistent stable chest burning. He does not like symptomatic treatment with "triple mix". Foot drop felt to be likely due to peroneal nerve injury when seen by neurology. Able to eat soft diet with stable level of variable level of ongoing central chest pain. he does not like either "triple mix" or lidocaine to reduce symptoms. No real improvement noted since admission. Impression: Persistent radiation esophagitis, unchanged since admission. Previously we were planning to resume treatment 06/28/2018 We will delay completion of treatment now until Tuesday07/03/2018. Discussed with patient and nursing staff. SLIME CHICAS MD Jun 27, 2018 15:40
[2018-06-27] MEDS: ENOXAPARIN 40 MG/0.4 ML SYRINGE. SQ SCH (16:52)
[2018-06-27 19:00] VITALS: BP 105/60
[2018-06-27] MEDS: ATORVASTATIN CALCIUM 40 MG TABLET. PO SCH (21:09)
[2018-06-27 22:41] VITALS: BP 92/46
[2018-06-28 03:00] VITALS: BP 98/43
[2018-06-28 07:00] VITALS: BP 102/48
[2018-06-28] MEDS: LIDOCAINE 2% VISCOUS 15 ML SOLUTION. SWSW SCH ×3 (07:30→11:30)
[2018-06-28] MEDS: IPRATRPIUM/ALBUTEROL 0.5/2.5MG 3 ML NEBU. NEB SCH ×2 (07:46→11:32)
--- NOTE | 2018-06-28 07:46 | PDOC ---
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 weekly with daily radiation, both last dosed on 06/20/2018, with therapy on hold with current radiation esophagitis, better on pain meds, w/ new right foot drop Right footdrop: right peroneal nerve palsy after sitting too long on the toilet , physical therapy has been consulted early on Dysphagia: continue pain meds as needed, GI cocktail as tolerated, viscous lidocaine prn (rec d/c home w/ meds prn) GE junction cancer: radiotherapy on hold for current symptoms, has 3 more doses of radiotherapy to be given next wk, likely w/holding further chemo Neutropenia on last cbc: Neutropenic precautions Prophylaxis: Lovenox, PPI Thank you kindly and please do not hesitate to call with questions. OBJECTIVE Vital Signs Vital Signs Date Time Temp Pulse Resp B/P (MAP) Pulse Ox O2 Delivery O2 Flow Rate FiO2 06/28/18 07:00 98.2 89 18 102/48 (66) 93 Room Air 98.2 06/28/18 03:00 97.9 89 17 98/43 (61) 93 Room Air 97.9 06/27/18 22:41 97.7 104 18 92/46 (61) 94 Room Air 97.7 06/27/18 21:10 93 105/60 06/27/18 20:35 98 Room Air 06/27/18 19:00 97.6 93 18 105/60 (75) 94 Room Air 97.6 06/27/18 14:55 97.9 96 18 103/65 (78) 93 Room Air 97.9 06/27/18 11:11 97 Room Air 06/27/18 10:59 98.1 89 18 114/61 (78) 94 Room Air 98.1 06/27/18 08:28 82 96/58 06/27/18 08:00 Room Air I & O Intake and Output 06/28/18 07:00 Intake Total 420 ml Output Total 0 ml Balance 420 ml Intake Oral 420 ml Output Urine Total 0 ml # Bowel Movements 2 COMMENT Lab Laboratory Tests Test 06/27/18 10:45 06/27/18 11:46 06/27/18 16:37 06/27/18 19:23 White Blood Count 1.6 x10^3/uL (4.0-11.0) Red Blood Count 3.70 x10^6/uL (4.30-5.70) Hemoglobin 11.6 g/dL (13.0-17.5) Hematocrit 34.2 % (39.0-53.0) Mean Corpuscular Volume 92 fL (79-100) Mean Corpuscular Hemoglobin 31 pg (25-35) Mean Corpuscular Hemoglobin Concent 34 g/dL (31-37) Red Cell Distribution Width 14.0 % (11.5-14.5) Platelet Count 147 x10^3/uL (140-400) Neutrophils (%) (Auto) 74 % (31-73) Lymphocytes (%) (Auto) 11 % (24-48) Monocytes (%) (Auto) 13 % (0-9) Eosinophils (%) (Auto) 0 % (0-3) Basophils (%) (Auto) 1 % (0-3) Neutrophils # (Auto) 1.2 x10^3uL (1.8-7.7) Lymphocytes # (Auto) 0.2 x10^3/uL (1.0-4.8) Monocytes # (Auto) 0.2 x10^3/uL (0.0-1.1) Eosinophils # (Auto) 0.0 x10^3/uL (0.0-0.7) Basophils # (Auto) 0.0 x10^3/uL (0.0-0.2) Sodium Level 132 mmol/L (136-145) Potassium Level 4.0 mmol/L (3.5-5.1) Chloride Level 97 mmol/L (98-107) Carbon Dioxide Level 26 mmol/L (21-32) Anion Gap 9 (6-14) Blood Urea Nitrogen 15 mg/dL (8-26) Creatinine 1.1 mg/dL (0.7-1.3) Estimated GFR (Cockcroft-Gault) 64.9 Glucose Level 143 mg/dL (70-99) Calcium Level 8.7 mg/dL (8.5-10.1) Glucose (Fingerstick) 136 mg/dL (70-99) 103 mg/dL (70-99) 152 mg/dL (70-99) Test 06/28/18 06:49 Glucose (Fingerstick) 107 mg/dL (70-99) Nutrition Consultation Dietary Evaluation: Recommendations by RD: Increase Calorie Intake, Protein supplementation Comments: added magic cup, puddings, mashed potatoes/ gravy, applesauce to diet order Expected Outcomes/Goals: to meet > 75% est nutr needs Interpretation of weight loss: >1-2% in 1 week Malnutrition Findings: Food and Nutrition Intake (Sev: <50% est energy req 5days Weight Status: Appropriate JACKIE AKHTAR MD Jun 28, 2018 07:46
[2018-06-28] MEDS: INSULIN LISPRO 300 UNITS/3 ML INSULN.PEN. SQ SCH ×2 (08:00→12:00)
[2018-06-28] MEDS: PANTOPRAZOLE 40 MG TABLET.DR. PO SCH (08:35)
[2018-06-28] MEDS: guaiFENesin DM 200MG/20MG 10 ML SYRUP PO SCH ×2 (08:36→12:18)
[2018-06-28] MEDS: LISINOPRIL 10 MG TABLET PO SCH (08:36)
[2018-06-28] MEDS: metFORMIN 500 MG TABLET PO SCH (08:36)
--- NOTE | 2018-06-28 10:19 | PDOC ---
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 He is better today than yesterday Bruit, Carotid Doppler negative Plan No need for imaging of the spine Keep pressure off his right knee when sitting and lying, and should not cross his knees. May need step stool for toilet He may need ankle-foot orthosis, hold for now Discussed with Dr. Mccarthy Follow up with me in 6 weeks if not resolved Subjective Notices increased foot strength (at first denies improvement) Objective Vital Signs Date Time Temp Pulse Resp B/P (MAP) Pulse Ox O2 Delivery O2 Flow Rate FiO2 06/28/18 08:36 89 102/48 06/28/18 07:46 96 Room Air 06/28/18 07:00 98.2 18 98.2 Intake and Output 06/28/18 06:59 Intake Total 420 ml Output Total 0 ml Balance 420 ml Intake Oral 420 ml Output Urine Total 0 ml # Bowel Movements 2 PHYSICAL EXAM Alert. Oriented to time, place and person. PERRL. EOMI. CN: no focal findings. Muscle tone: normal. Muscle strength: 4/5 right foot drop, otherwise normal DTR: 1+ Plantar reflex: flexor Gait: not examined in bed. Sensory exam: no abnormal findings. No cerebellar signs elicited. Review of Relevant I have reviewed the following items erica (where applicable) has been applied. Labs Laboratory Tests Test 06/26/18 12:02 06/26/18 16:59 06/26/18 20:45 06/27/18 07:14 Glucose (Fingerstick) 115 mg/dL (70-99) 124 mg/dL (70-99) 130 mg/dL (70-99) 110 mg/dL (70-99) Test 06/27/18 10:45 06/27/18 11:46 06/27/18 16:37 06/27/18 19:23 White Blood Count 1.6 x10^3/uL (4.0-11.0) Red Blood Count 3.70 x10^6/uL (4.30-5.70) Hemoglobin 11.6 g/dL (13.0-17.5) Hematocrit 34.2 % (39.0-53.0) Mean Corpuscular Volume 92 fL (79-100) Mean Corpuscular Hemoglobin 31 pg (25-35) Mean Corpuscular Hemoglobin Concent 34 g/dL (31-37) Red Cell Distribution Width 14.0 % (11.5-14.5) Platelet Count 147 x10^3/uL (140-400) Neutrophils (%) (Auto) 74 % (31-73) Lymphocytes (%) (Auto) 11 % (24-48) Monocytes (%) (Auto) 13 % (0-9) Eosinophils (%) (Auto) 0 % (0-3) Basophils (%) (Auto) 1 % (0-3) Neutrophils # (Auto) 1.2 x10^3uL (1.8-7.7) Lymphocytes # (Auto) 0.2 x10^3/uL (1.0-4.8) Monocytes # (Auto) 0.2 x10^3/uL (0.0-1.1) Eosinophils # (Auto) 0.0 x10^3/uL (0.0-0.7) Basophils # (Auto) 0.0 x10^3/uL (0.0-0.2) Sodium Level 132 mmol/L (136-145) Potassium Level 4.0 mmol/L (3.5-5.1) Chloride Level 97 mmol/L (98-107) Carbon Dioxide Level 26 mmol/L (21-32) Anion Gap 9 (6-14) Blood Urea Nitrogen 15 mg/dL (8-26) Creatinine 1.1 mg/dL (0.7-1.3) Estimated GFR (Cockcroft-Gault) 64.9 Glucose Level 143 mg/dL (70-99) Calcium Level 8.7 mg/dL (8.5-10.1) Glucose (Fingerstick) 136 mg/dL (70-99) 103 mg/dL (70-99) 152 mg/dL (70-99) Test 06/28/18 06:49 Glucose (Fingerstick) 107 mg/dL (70-99) Laboratory Tests Test 06/27/18 10:45 06/27/18 11:46 06/27/18 16:37 06/27/18 19:23 White Blood Count 1.6 x10^3/uL (4.0-11.0) Red Blood Count 3.70 x10^6/uL (4.30-5.70) Hemoglobin 11.6 g/dL (13.0-17.5) Hematocrit 34.2 % (39.0-53.0) Mean Corpuscular Volume 92 fL (79-100) Mean Corpuscular Hemoglobin 31 pg (25-35) Mean Corpuscular Hemoglobin Concent 34 g/dL (31-37) Red Cell Distribution Width 14.0 % (11.5-14.5) Platelet Count 147 x10^3/uL (140-400) Neutrophils (%) (Auto) 74 % (31-73) Lymphocytes (%) (Auto) 11 % (24-48) Monocytes (%) (Auto) 13 % (0-9) Eosinophils (%) (Auto) 0 % (0-3) Basophils (%) (Auto) 1 % (0-3) Neutrophils # (Auto) 1.2 x10^3uL (1.8-7.7) Lymphocytes # (Auto) 0.2 x10^3/uL (1.0-4.8) Monocytes # (Auto) 0.2 x10^3/uL (0.0-1.1) Eosinophils # (Auto) 0.0 x10^3/uL (0.0-0.7) Basophils # (Auto) 0.0 x10^3/uL (0.0-0.2) Sodium Level 132 mmol/L (136-145) Potassium Level 4.0 mmol/L (3.5-5.1) Chloride Level 97 mmol/L (98-107) Carbon Dioxide Level 26 mmol/L (21-32) Anion Gap 9 (6-14) Blood Urea Nitrogen 15 mg/dL (8-26) Creatinine 1.1 mg/dL (0.7-1.3) Estimated GFR (Cockcroft-Gault) 64.9 Glucose Level 143 mg/dL (70-99) Calcium Level 8.7 mg/dL (8.5-10.1) Glucose (Fingerstick) 136 mg/dL (70-99) 103 mg/dL (70-99) 152 mg/dL (70-99) Test 06/28/18 06:49 Glucose (Fingerstick) 107 mg/dL (70-99) Medications Current Medications Multi-Ingredient Mouthwash/Gargle (Gi Cocktail) 20 ml 1X ONCE SWSW Last administered on 06/24/18at 13:11; Start 06/24/18 at 12:45; Stop 06/24/18 at 12:46 ; Status DC Morphine Sulfate (Morphine Sulfate) 5 mg 1X ONCE IV Last administered on at 14:34; Start 06/24/18 at 12:45; Stop 06/24/18 at 12:46; Status DC Lidocaine HCl (Viscous Lidocaine) 15 ml PRN Q4HRS PRN SWSW MOUTH PAIN; Start at 16:00; Stop 06/26/18 at 16:55; Status DC Albuterol/ Ipratropium (Duoneb) 3 ml RTQID NEB Last administered on 06/28/18at 07:46; Start 06/24/18 at 16:00 Guaifenesin (Robitussin Dm) 10 ml QID PO Last administered on 06/28/18at 08:36; Start 06/24/18 at 17:00 Diphenhydramine HCl (Benadryl Oral Elixir) 25 mg QHS PRN PO sleep; Start at 16:00 Morphine Sulfate (Morphine Sulfate) 1 mg PRN Q2HR PRN IV PAIN Last administered on 06/26/18at 15:46; Start 06/24/18 at 16:00 Acetaminophen/ Codeine Phosphate (Tylenol/Codeine Soln) 5 ml PRN Q6HRS PRN PO pain Last administered on 06/25/18at 11:18; Start 06/24/18 at 16:00 Sodium Chloride 1,000 ml @ 75 mls/hr 1X ONCE IV Last administered on at 16:46; Start 06/24/18 at 16:00; Stop 06/25/18 at 05:19; Status DC Insulin Human Lispro (HumaLOG) 0-7 UNITS TIDWMEALS SQ ; Start 06/24/18 at 17:00 Dextrose (Dextrose 50%-Water Syringe) 12.5 gm PRN Q15MIN PRN IV SEE COMMENTS; Start 06/24/18 at 16:00 Labetalol HCl (Normodyne Iv Push) 10 mg PRN Q2HR PRN IVP HYPERTENSION, SEE COMMENTS; Start 06/24/18 at 16:00 Ondansetron HCl (Zofran) 4 mg PRN Q8HRS PRN IV NAUSEA/VOMITING Last administered on 06/24/18at 21:29; Start 06/24/18 at 17:45; Stop 06/25/18 at 17:44 ; Status DC Morphine Sulfate (Morphine Sulfate) 4 mg PRN Q2HR PRN IV PAIN; Start 06/24/18 at 17:45; Stop 06/25/18 at 17:44; Status DC Acetaminophen (Tylenol) 650 mg PRN Q4HRS PRN PO FEVER; Start 06/24/18 at 17:45 ; Stop 06/25/18 at 17:44; Status DC Multi-Ingredient Mouthwash/Gargle (Gi Cocktail) 20 ml PRN QID PRN PO CHEST PAIN Last administered on 06/25/18at 07:36; Start 06/25/18 at 07:30; Stop at 16:55; Status DC Atorvastatin Calcium (Lipitor) 40 mg QHS PO Last administered on 06/27/18at 21: 09; Start 06/25/18 at 21:00 Lisinopril (Prinivil) 10 mg BID PO Last administered on 06/27/18at 21:10; Start 06/25/18 at 10:00 Nitroglycerin (Nitrostat) 0.4 mg PRN Q5MIN PRN SL CHEST PAIN; Start 06/25/18 at 09:30 Non-Formulary Medication (Dextromethorphan Polistirex (Delsym)) 30 mg BID PRN PO COUGH; Start 06/25/18 at 09:30; Status UNV Metformin HCl (Glucophage) 500 mg BIDWMEALS PO Last administered on 06/28/18at 08:36; Start 06/25/18 at 17:00 Ondansetron HCl (Zofran Odt) 4 mg PRN Q12HRS PRN PO NAUSEA/VOMITING; Start at 09:45; Stop 06/25/18 at 09:45; Status DC Guaifenesin/ Codeine Phosphate (Robitussin Ac) 5 ml PRN Q4HRS PRN PO COUGH Last administered on 06/27/18at 04:22; Start 06/25/18 at 09:45 Pantoprazole Sodium (Protonix) 40 mg DAILYAC PO Last administered on 06/28/18at 08:35; Start 06/25/18 at 10:00 Ondansetron HCl (Zofran Odt) 8 mg PRN Q12HRS PRN PO NAUSEA/VOMITING; Start at 09:45 Enoxaparin Sodium (Lovenox 40mg Syringe) 40 mg Q24H SQ Last administered on at 16:52; Start 06/26/18 at 16:00 Lidocaine HCl (Viscous Lidocaine) 15 ml TIDACHC SWSW Last administered on at 16:51; Start 06/26/18 at 17:00 Active Scripts Active Nitrostat (Nitroglycerin) 0.4 Mg Tab.subl 0.4 Mg SL PRN Q5MIN PRN 30 Days Atorvastatin Calcium 40 Mg Tablet 40 Mg PO QHS 28 Days [Pantoprazole] 40 MG Tablet.dr 40 Mg PO DAILYAC 30 Days Reported Delsym (Dextromethorphan Polistirex) 30 Mg/5 Ml Nola.er.12h 30 Mg PO BID PRN Zofran (Ondansetron Hcl) 8 Mg Tablet 8 Mg PO BID PRN Promethazine-Codeine Syrup (Promethazine Hcl/Codeine) 118 Ml Syrup 5 Ml PO Q4- 6HRS Lisinopril 10 Mg Tablet 10 Mg PO BID Metformin Hcl 500 Mg Tablet 500 Mg PO BIDWMEALS Vitals/I & O Vital Sign - Last 24 Hours 06/27/18 06/27/18 06/27/18 06/27/18 10:59 11:11 14:55 19:00 Temp 98.1 97.9 97.6 98.1 97.9 97.6 Pulse 89 96 93 Resp 18 18 18 B/P (MAP) 114/61 (78) 103/65 (78) 105/60 (75) Pulse Ox 94 97 93 94 O2 Delivery Room Air Room Air Room Air Room Air 06/27/18 06/27/18 06/27/18 06/28/18 20:35 21:10 22:41 03:00 Temp 97.7 97.9 97.7 97.9 Pulse 93 104 89 Resp 18 17 B/P (MAP) 105/60 92/46 (61) 98/43 (61) Pulse Ox 98 94 93 O2 Delivery Room Air Room Air Room Air 06/28/18 06/28/18 06/28/18 07:00 07:46 08:36 Temp 98.2 98.2 Pulse 89 89 Resp 18 B/P (MAP) 102/48 (66) 102/48 Pulse Ox 93 96 O2 Delivery Room Air Room Air Intake and Output 06/27/18 06/27/18 06/28/18 14:59 22:59 06:59 Intake Total 120 ml 300 ml 0 ml Output Total 0 ml 0 ml Balance 120 ml 300 ml 0 ml PRAMOD CARLISLE MD Jun 28, 2018 10:19
[2018-06-28 10:37] VITALS: BP 104/66
--- NOTE | 2018-06-28 11:32 | PDOC ---
Subjective: Subjective: Denies swallowing issues - says not using lidocaine. Going home this morning - says his driveway might be slippery but will have some help. Objective: Vital Signs: Vital Signs Date Time Temp Pulse Resp B/P (MAP) Pulse Ox O2 Delivery O2 Flow Rate FiO2 06/28/18 10:37 97.7 115 18 104/66 (79) 98 Room Air 97.7 Labs: Laboratory Tests Test 06/27/18 11:46 06/27/18 16:37 06/27/18 19:23 06/28/18 06:49 Glucose (Fingerstick) 136 mg/dL (70-99) 103 mg/dL (70-99) 152 mg/dL (70-99) 107 mg/dL (70-99) PE: GEN: NAD, up to chair, dressed to leave NEURO/PSYCH: A & O �3 A/P: Esophageal cancer/suspected radiation esophagitis -- Odynophagia improved. DC per primary. STELLA YIP Jun 28, 2018 11:32
[2018-06-28] MEDS ORDERED: ACET5SOL PO (12:45)
[2018-06-28] MEDS ORDERED: LIDO15SO2 SWSW (12:45)
--- NOTE | 2018-06-28 12:49 | PDOC ---
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 He has been undergoing preoperative radiation therapy and chemo x5 and reports a pain in his midchest with swallowing solids and liquids. He denies N/V/diarrhea, constipation, blood in his stool. He has lost weight. He weighed 180 last year prior to his diagnosis and reports that he weighs 157 now. Admitted for above, found to be likely radiation and chemo esophagitis, seen by GI, rad onc, heme onc, improved eventually with viscous lidocaine GI cocktail providing some temporary relief Some high blood pressure during the stay requiring IV meds to bring down CXR unimpressive 06/27: Right foot drop noted, seen by neurology. Carotid doppler based on right bruit with 50-70% stenosis. He c/o pain on swallowing solids and orange juice, all substernal. He did not have pain on drinking milk or eating cream of wheat this morning. Less impressive right foot drop, worked with PT x1, able to navigate stairs without AFO brace, seen by neurology as well. Has less pain today after viscous lidocaine order. Plan: [facility] radiation-induced esophagitis Odynophagia secondary to above CP sec to above Esophageal cancer, almost completing 5 weeks total radiation duration, and on chemo - Follows with Dr Ashleigh dillard Thrombocytopenia with no bleeding-platelets 138 Neutropenia, WBC 1.3 Hypertension controlled Diabetes on OHA Right peroneal nerve palsy Right carotid artery disease GI, heme/onc, radiation oncology consulted-courtesy consult the latter two as they were providing him chemotherapy and radiation therapy. Needs it tomorrow PT for consideration of right AFO brace Vascular surgery to follow outpatient Home meds I have reconciled Discussed with RN Vitals Vitals Vital Signs Date Time Temp Pulse Resp B/P (MAP) Pulse Ox O2 Delivery O2 Flow Rate FiO2 06/28/18 11:35 Room Air 06/28/18 10:37 97.7 115 18 104/66 (79) 98 97.7 Physical Exam General: Alert, Oriented X3, Cooperative, No acute distress Lungs: Clear, Other Abdomen: Normal bowel sounds, Soft, No tenderness, No hepatosplenomegaly, No masses Extremities: No clubbing, No cyanosis, No edema, Normal pulses, No tenderness/ swelling Skin: No rashes, No breakdown, No significant lesion Labs LABS Laboratory Tests Test 06/27/18 16:37 06/27/18 19:23 06/28/18 06:49 06/28/18 12:16 Glucose (Fingerstick) 103 mg/dL (70-99) 152 mg/dL (70-99) 107 mg/dL (70-99) 121 mg/dL (70-99) Assessment and Plan Assessmemt and Plan Problems Medical Problems: (1) Epigastric abdominal pain Status: Acute (2) Esophageal cancer Status: Acute Comment Review of Relevant I have reviewed the following items erica (where applicable) has been applied. Labs Laboratory Tests Test 06/26/18 16:59 06/26/18 20:45 06/27/18 07:14 06/27/18 10:45 Glucose (Fingerstick) 124 mg/dL (70-99) 130 mg/dL (70-99) 110 mg/dL (70-99) White Blood Count 1.6 x10^3/uL (4.0-11.0) Red Blood Count 3.70 x10^6/uL (4.30-5.70) Hemoglobin 11.6 g/dL (13.0-17.5) Hematocrit 34.2 % (39.0-53.0) Mean Corpuscular Volume 92 fL (79-100) Mean Corpuscular Hemoglobin 31 pg (25-35) Mean Corpuscular Hemoglobin Concent 34 g/dL (31-37) Red Cell Distribution Width 14.0 % (11.5-14.5) Platelet Count 147 x10^3/uL (140-400) Neutrophils (%) (Auto) 74 % (31-73) Lymphocytes (%) (Auto) 11 % (24-48) Monocytes (%) (Auto) 13 % (0-9) Eosinophils (%) (Auto) 0 % (0-3) Basophils (%) (Auto) 1 % (0-3) Neutrophils # (Auto) 1.2 x10^3uL (1.8-7.7) Lymphocytes # (Auto) 0.2 x10^3/uL (1.0-4.8) Monocytes # (Auto) 0.2 x10^3/uL (0.0-1.1) Eosinophils # (Auto) 0.0 x10^3/uL (0.0-0.7) Basophils # (Auto) 0.0 x10^3/uL (0.0-0.2) Sodium Level 132 mmol/L (136-145) Potassium Level 4.0 mmol/L (3.5-5.1) Chloride Level 97 mmol/L (98-107) Carbon Dioxide Level 26 mmol/L (21-32) Anion Gap 9 (6-14) Blood Urea Nitrogen 15 mg/dL (8-26) Creatinine 1.1 mg/dL (0.7-1.3) Estimated GFR (Cockcroft-Gault) 64.9 Glucose Level 143 mg/dL (70-99) Calcium Level 8.7 mg/dL (8.5-10.1) Test 06/27/18 11:46 06/27/18 16:37 06/27/18 19:23 06/28/18 06:49 Glucose (Fingerstick) 136 mg/dL (70-99) 103 mg/dL (70-99) 152 mg/dL (70-99) 107 mg/dL (70-99) Test 06/28/18 12:16 Glucose (Fingerstick) 121 mg/dL (70-99) Laboratory Tests Test 06/27/18 16:37 06/27/18 19:23 06/28/18 06:49 06/28/18 12:16 Glucose (Fingerstick) 103 mg/dL (70-99) 152 mg/dL (70-99) 107 mg/dL (70-99) 121 mg/dL (70-99) Medications Current Medications Multi-Ingredient Mouthwash/Gargle (Gi Cocktail) 20 ml 1X ONCE SWSW Last administered on 06/24/18at 13:11; Start 06/24/18 at 12:45; Stop 06/24/18 at 12:46 ; Status DC Morphine Sulfate (Morphine Sulfate) 5 mg 1X ONCE IV Last administered on at 14:34; Start 06/24/18 at 12:45; Stop 06/24/18 at 12:46; Status DC Lidocaine HCl (Viscous Lidocaine) 15 ml PRN Q4HRS PRN SWSW MOUTH PAIN; Start at 16:00; Stop 06/26/18 at 16:55; Status DC Albuterol/ Ipratropium (Duoneb) 3 ml RTQID NEB Last administered on 06/28/18at 11:32; Start 06/24/18 at 16:00 Guaifenesin (Robitussin Dm) 10 ml QID PO Last administered on 06/28/18at 08:36; Start 06/24/18 at 17:00 Diphenhydramine HCl (Benadryl Oral Elixir) 25 mg QHS PRN PO sleep; Start at 16:00 Morphine Sulfate (Morphine Sulfate) 1 mg PRN Q2HR PRN IV PAIN Last administered on 06/26/18at 15:46; Start 06/24/18 at 16:00 Acetaminophen/ Codeine Phosphate (Tylenol/Codeine Soln) 5 ml PRN Q6HRS PRN PO pain Last administered on 06/25/18at 11:18; Start 06/24/18 at 16:00 Sodium Chloride 1,000 ml @ 75 mls/hr 1X ONCE IV Last administered on at 16:46; Start 06/24/18 at 16:00; Stop 06/25/18 at 05:19; Status DC Insulin Human Lispro (HumaLOG) 0-7 UNITS TIDWMEALS SQ ; Start 06/24/18 at 17:00 Dextrose (Dextrose 50%-Water Syringe) 12.5 gm PRN Q15MIN PRN IV SEE COMMENTS; Start 06/24/18 at 16:00 Labetalol HCl (Normodyne Iv Push) 10 mg PRN Q2HR PRN IVP HYPERTENSION, SEE COMMENTS; Start 06/24/18 at 16:00 Ondansetron HCl (Zofran) 4 mg PRN Q8HRS PRN IV NAUSEA/VOMITING Last administered on 06/24/18at 21:29; Start 06/24/18 at 17:45; Stop 06/25/18 at 17:44 ; Status DC Morphine Sulfate (Morphine Sulfate) 4 mg PRN Q2HR PRN IV PAIN; Start 06/24/18 at 17:45; Stop 06/25/18 at 17:44; Status DC Acetaminophen (Tylenol) 650 mg PRN Q4HRS PRN PO FEVER; Start 06/24/18 at 17:45 ; Stop 06/25/18 at 17:44; Status DC Multi-Ingredient Mouthwash/Gargle (Gi Cocktail) 20 ml PRN QID PRN PO CHEST PAIN Last administered on 06/25/18 07:36; Start 06/25/18 at 07:30; Stop at 16:55; Status DC Atorvastatin Calcium (Lipitor) 40 mg QHS PO Last administered on 06/27/18at 21: 09; Start 06/25/18 at 21:00 Lisinopril (Prinivil) 10 mg BID PO Last administered on 06/27/18at 21:10; Start 06/25/18 at 10:00 Nitroglycerin (Nitrostat) 0.4 mg PRN Q5MIN PRN SL CHEST PAIN; Start 06/25/18 at 09:30 Non-Formulary Medication (Dextromethorphan Polistirex (Delsym)) 30 mg BID PRN PO COUGH; Start 06/25/18 at 09:30; Status UNV Metformin HCl (Glucophage) 500 mg BIDWMEALS PO Last administered on 06/28/18at 08:36; Start 06/25/18 at 17:00 Ondansetron HCl (Zofran Odt) 4 mg PRN Q12HRS PRN PO NAUSEA/VOMITING; Start at 09:45; Stop 06/25/18 at 09:45; Status DC Guaifenesin/ Codeine Phosphate (Robitussin Ac) 5 ml PRN Q4HRS PRN PO COUGH Last administered on 06/27/18at 04:22; Start 06/25/18 at 09:45 Pantoprazole Sodium (Protonix) 40 mg DAILYAC PO Last administered on 06/28/18at 08:35; Start 06/25/18 at 10:00 Ondansetron HCl (Zofran Odt) 8 mg PRN Q12HRS PRN PO NAUSEA/VOMITING; Start at 09:45 Enoxaparin Sodium (Lovenox 40mg Syringe) 40 mg Q24H SQ Last administered on at 16:52; Start 06/26/18 at 16:00 Lidocaine HCl (Viscous Lidocaine) 15 ml TIDACHC SWSW Last administered on at 16:51; Start 06/26/18 at 17:00 Active Scripts Active Nitrostat (Nitroglycerin) 0.4 Mg Tab.subl 0.4 Mg SL PRN Q5MIN PRN 30 Days Atorvastatin Calcium 40 Mg Tablet 40 Mg PO QHS 28 Days [Pantoprazole] 40 MG Tablet.dr 40 Mg PO DAILYAC 30 Days Reported Delsym (Dextromethorphan Polistirex) 30 Mg/5 Ml Nola.er.12h 30 Mg PO BID PRN Zofran (Ondansetron Hcl) 8 Mg Tablet 8 Mg PO BID PRN Promethazine-Codeine Syrup (Promethazine Hcl/Codeine) 118 Ml Syrup 5 Ml PO Q4- 6HRS Lisinopril 10 Mg Tablet 10 Mg PO BID Metformin Hcl 500 Mg Tablet 500 Mg PO BIDWMEALS Vitals/I & O Vital Sign - Last 24 Hours 06/27/18 06/27/18 06/27/18 06/27/18 14:55 19:00 20:35 21:10 Temp 97.9 97.6 97.9 97.6 Pulse 96 93 93 Resp 18 18 B/P (MAP) 103/65 (78) 105/60 (75) 105/60 Pulse Ox 93 94 98 O2 Delivery Room Air Room Air Room Air 06/27/18 06/28/18 06/28/18 06/28/18 22:41 03:00 07:00 07:46 Temp 97.7 97.9 98.2 97.7 97.9 98.2 Pulse 104 89 89 Resp 18 17 18 B/P (MAP) 92/46 (61) 98/43 (61) 102/48 (66) Pulse Ox 94 93 93 96 O2 Delivery Room Air Room Air Room Air Room Air 06/28/18 06/28/18 06/28/18 08:36 10:37 11:35 Temp 97.7 97.7 Pulse 89 115 Resp 18 B/P (MAP) 102/48 104/66 (79) Pulse Ox 98 O2 Delivery Room Air Room Air Intake and Output 06/27/18 06/27/18 06/28/18 14:59 22:59 06:59 Intake Total 120 ml 300 ml 0 ml Output Total 0 ml 0 ml Balance 120 ml 300 ml 0 ml Nutrition Consultation Dietary Evaluation: Recommendations by RD: Increase Calorie Intake, Protein supplementation Comments: added magic cup, puddings, mashed potatoes/ gravy, applesauce to diet order Expected Outcomes/Goals: to meet > 75% est nutr needs Interpretation of weight loss: >1-2% in 1 week Malnutrition Findings: Food and Nutrition Intake (Sev: <50% est energy req 5days Weight Status: Appropriate BLUE FARRELL MD Jun 28, 2018 12:48
--- NOTE | 2018-06-28 12:52 | PDOC3 ---
Discharge Summary Visit Information Date of Admission: Jun 24, 2018 Date of Discharge: Jun 28, 2018 Admitting Diagnosis: Epigastric abdominal pain Final Diagnosis Problems Medical Problems: (1) Epigastric abdominal pain Status: Acute (2) Esophageal cancer Status: Acute Brief Hospital Course Allergies Allergies Coded Allergies Type Severity Reaction Last Updated Verified No Known Drug Allergies 06/24/18 No Vital Signs Vital Signs Date Time Temp Pulse Resp B/P (MAP) Pulse Ox O2 Delivery O2 Flow Rate FiO2 06/28/18 11:35 Room Air 06/28/18 10:37 97.7 115 18 104/66 (79) 98 97.7 Lab Results Laboratory Tests Test 06/26/18 16:59 06/26/18 20:45 06/27/18 07:14 06/27/18 10:45 Glucose (Fingerstick) 124 mg/dL (70-99) 130 mg/dL (70-99) 110 mg/dL (70-99) White Blood Count 1.6 x10^3/uL (4.0-11.0) Red Blood Count 3.70 x10^6/uL (4.30-5.70) Hemoglobin 11.6 g/dL (13.0-17.5) Hematocrit 34.2 % (39.0-53.0) Mean Corpuscular Volume 92 fL (79-100) Mean Corpuscular Hemoglobin 31 pg (25-35) Mean Corpuscular Hemoglobin Concent 34 g/dL (31-37) Red Cell Distribution Width 14.0 % (11.5-14.5) Platelet Count 147 x10^3/uL (140-400) Neutrophils (%) (Auto) 74 % (31-73) Lymphocytes (%) (Auto) 11 % (24-48) Monocytes (%) (Auto) 13 % (0-9) Eosinophils (%) (Auto) 0 % (0-3) Basophils (%) (Auto) 1 % (0-3) Neutrophils # (Auto) 1.2 x10^3uL (1.8-7.7) Lymphocytes # (Auto) 0.2 x10^3/uL (1.0-4.8) Monocytes # (Auto) 0.2 x10^3/uL (0.0-1.1) Eosinophils # (Auto) 0.0 x10^3/uL (0.0-0.7) Basophils # (Auto) 0.0 x10^3/uL (0.0-0.2) Sodium Level 132 mmol/L (136-145) Potassium Level 4.0 mmol/L (3.5-5.1) Chloride Level 97 mmol/L (98-107) Carbon Dioxide Level 26 mmol/L (21-32) Anion Gap 9 (6-14) Blood Urea Nitrogen 15 mg/dL (8-26) Creatinine 1.1 mg/dL (0.7-1.3) Estimated GFR (Cockcroft-Gault) 64.9 Glucose Level 143 mg/dL (70-99) Calcium Level 8.7 mg/dL (8.5-10.1) Test 06/27/18 11:46 06/27/18 16:37 06/27/18 19:23 06/28/18 06:49 Glucose (Fingerstick) 136 mg/dL (70-99) 103 mg/dL (70-99) 152 mg/dL (70-99) 107 mg/dL (70-99) Test 06/28/18 12:16 Glucose (Fingerstick) 121 mg/dL (70-99) Laboratory Tests Test 06/27/18 16:37 06/27/18 19:23 06/28/18 06:49 06/28/18 12:16 Glucose (Fingerstick) 103 mg/dL (70-99) 152 mg/dL (70-99) 107 mg/dL (70-99) 121 mg/dL (70-99) Brief Hospital Course 78 year old with 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 He has been undergoing preoperative radiation therapy and chemo x5 and reports a pain in his midchest with swallowing solids and liquids. He denies N/V/diarrhea, constipation, blood in his stool. He has lost weight. He weighed 180 last year prior to his diagnosis and reports that he weighs 157 now. Admitted for above, found to be likely radiation and chemo esophagitis, seen by GI, rad onc, heme onc, improved eventually with viscous lidocaine GI cocktail providing some temporary relief Some high blood pressure during the stay requiring IV meds to bring down CXR unimpressive 06/27: Right foot drop noted, seen by neurology. Carotid doppler based on right bruit with 50-70% stenosis. He c/o pain on swallowing solids and orange juice, all substernal. He did not have pain on drinking milk or eating cream of wheat this morning. Less impressive right foot drop, worked with PT x1, able to navigate stairs without AFO brace, seen by neurology as well. 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 Needs it 07/03/18, has been delayed with above complications PT for consideration of right AFO brace at some point outpatient Vascular surgery to follow outpatient Discussed with RN Spent greater than 30 minutes on discharge with coordination with other providers and patient medication arrangements. Discharge Information Condition at Discharge: Improved Follow Up: Weeks (2) Disposition/Orders: D/C to Home Scheduled Atorvastatin Calcium (Atorvastatin Calcium) 40 Mg Tablet, 40 MG PO QHS for CHOLESTEROL for 28 Days, #28 Prescribed by: KERRIE BRENNAN MD on 04/14/18 1242 Last Action: Continued on 06/25/18925 by MANUEL OH Lidocaine HCl (Lidocaine HCl Viscous) 15 Ml Solution, 15 ML SWSW TIDACHC for sore throat for 30 Days, #450 Ref 2 Prescribed by: BLUE FARRELL MD on 06/28/18 1245 Lisinopril (Lisinopril) 10 Mg Tablet, 10 MG PO BID for hypertension, (Reported) Entered as Reported by: LUZ PARSONS on 04/10/181939 Last Action: Continued on 06/25/18925 by MANUEL OH Metformin Hcl (Metformin Hcl) 500 Mg Tablet, 500 MG PO BIDWMEALS for ANTI- DIABETIC, (Reported) Entered as Reported by: LUZ PARSONS on 04/10/181937 Last Action: Converted on 06/25/18925 by MANUEL OH Promethazine Hcl/Codeine (Promethazine-Codeine Syrup) 118 Ml Syrup, 5 ML PO Q4- 6HRS for cough, (Reported) Entered as Reported by: INÉS JOYCE on 05/16/18 0849 Last Action: Converted on 06/25/18925 by MANUEL OH [Pantoprazole] 40 MG TABLET.DR, 40 MG PO DAILYAC for ESOPHAGUS for 30 Days, #30 Prescribed by: KERRIE BRENNAN MD on 04/14/18 1242 Last Action: Converted on 06/25/18925 by MANUEL OH Scheduled PRN Acetaminophen With Codeine (Acetaminophen-Codeine Solution) 5 Ml Solution, 5 ML PO PRN Q6HRS PRN for pain for 6 Days, #60 Ref 0 Prescribed by: BLUE FARRELL MD on 06/28/18 1245 Dextromethorphan Polistirex (Delsym) 30 Mg/5 Ml Nola.er.12h, 30 MG PO BID PRN for COUGH, (Reported) Entered as Reported by: MONIKA JEFFRIES on 06/16/18 1050 Last Action: Converted on 06/25/18925 by MANUEL OH Nitroglycerin (Nitrostat) 0.4 Mg Tab.subl, 0.4 MG SL PRN Q5MIN PRN for CHEST PAIN for 30 Days, #100 Prescribed by: KERRIE BRENNAN MD on 04/14/18 1242 Last Action: Continued on 06/25/18925 by MANUEL OH Ondansetron Hcl (Zofran) 8 Mg Tablet, 8 MG PO BID PRN for NAUSEA/VOMITING, ( Reported) Entered as Reported by: MONIKA JEFFRIES on 06/16/18 1049 Last Action: Converted on 06/25/18925 by BLUE HORN MD Jun 28, 2018 12:52
--- NOTE | 2018-06-28 13:32 | PDOC ---
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 Currently undergoing pre operative chemo and radiation. Day 22 of 25 day course of radiation as of 06/20. Admitted with new onset of chest burning with eating some foods normal swallowing, one episode of vomiting with no heme and new right foot drop. Tolerating soft diet now with persistent stable chest burning. He does not like symptomatic treatment with "triple mix". Foot drop felt to be likely due to peroneal nerve injury when seen by neurology. Ate breakfast with no recurrent burning. Planning to go home today. Impression: Radiation esophagitis, now better after treatment rest. Will resume treatment Tuesday07/03/2018. Patient has treatment time of 8:15 AM. SLIME CHICAS MD Jun 28, 2018 13:31
[2018-06-28 15:00] VITALS: BP 108/64
[2018-08-14] MEDS ORDERED: ENAL10TA PO (09:25)
[2018-08-14] MEDS ORDERED: SIMV80TA17 PO (09:25)
[2018-08-14] MEDS ORDERED: ATOR40TA59 PO (12:22)
[2018-08-14] MEDS ORDERED: LISI10TA2 PO (12:23)
[2018-10-16] MEDS ORDERED: PANT20TA2 PO (15:03)
== END 2018-06-28 15:30 | disposition home or self-care (01) | DRG 391 ==
LOC: ER 11:59 → 6 SOUTH 16:37 → 5 SOUTH 20:13
PROVIDERS: ADMIT Internal Medicine; ATTEND Internal Medicine
DX: K20.8 Other esophagitis (principal); E43 Unspecified severe protein-calorie malnutrition; C15.9 Malignant neoplasm of esophagus, unspecified; C16.0 Malignant neoplasm of cardia; E87.1 Hypo-osmolality and hyponatremia; D69.6 Thrombocytopenia, unspecified; D70.9 Neutropenia, unspecified; I10 Essential (primary) hypertension; E11.9 Type 2 diabetes mellitus without complications; M21.371 Foot drop, right foot; E78.5 Hyperlipidemia, unspecified; M19.90 Unspecified osteoarthritis, unspecified site; R13.10 Dysphagia, unspecified; Y84.2 Radiological procedure and radiotherapy as the cause of abnormal reaction of the patient, or of later complication, without mention of misadventure at the time of the procedure; G57.31 Lesion of lateral popliteal nerve, right lower limb; E78.00 Pure hypercholesterolemia, unspecified; Z80.1 Family history of malignant neoplasm of trachea, bronchus and lung; Z85.028 Personal history of other malignant neoplasm of stomach; Z85.01 Personal history of malignant neoplasm of esophagus; Z82.49 Family history of ischemic heart disease and other diseases of the circulatory system; Z86.79 Personal history of other diseases of the circulatory system; Z87.891 Personal history of nicotine dependence; Z90.49 Acquired absence of other specified parts of digestive tract
CPT/HCPCS: 36415; 71045; 80048; 80053; 80307; 81001; 82553; 82962; 83690; 83735; 83880; 84443; 84484; 85007; 85025; 93005; 93880; 94640; 94760; 96361; 96374; J1650; J1815; J2270; J2405; J7620; 99285-25; G0378

== ENCOUNTER → 2018-08-14 | Day surgery (SDC) | payer MEDICARE ==
[~2018-08-14] MED LIST changes: +ACET5SOL PO; +ENAL10TA PO; +HYDROmorphone 2 MG/ML VIAL IV PRN; +IV RINGERS,LACTATED 1000ML 1,000 ML IV SCH; +LIDO15SO2 SWSW; +LIDOCAINE 1% PF 2 ML VIAL. ID PRN; +LIDOCAINE 2% PF 5 ML VIAL. ONE; +MORPHINE SULFATE 2 MG/ML VIAL. IV PRN; +ONDANSETRON PF 4 MG/2 ML VIAL. IV PRN; +PANT20TA2 PO; +PROCHLORPERAZINE 10 MG/2 ML VIAL. IV PRN; +PROPOFOL 20 ML IV ONE; +SIMV80TA17 PO; +fentaNYL PF VIAL 100 MCG/2 ML VIAL IV PRN
--- NOTE | 2018-08-14 12:33 | PDOC1 ---
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 Has received chemo/rad Rx. Second look post-treatment requested. Doing well w/o complaint GI-hinojosa. Colonoscopy 2010 with one adenoma. Past Medical History Cardiovascular: HTN, Hyperlipidemia, Other (AAA) Musculoskeletal: Osteoarthritis Endocrine: Diabetes Past Surgical History Past Surgical History: Appendectomy, Other (AAA repair) Family History Family History: Cancer (type unknown), Hypertension Social History ALCOHOL: none Drugs: None Current Medications Current Medications Current Medications Ondansetron HCl (Zofran) 4 mg PRN Q6HRS PRN IV NAUSEA/VOMITING; Start 08/14/18 at 07:00; Stop 08/15/18 at 06:59 Fentanyl Citrate (Fentanyl 2ml Vial) 25 mcg PRN Q5MIN PRN IV MILD PAIN; Start 08/14/18 at 07:00; Stop 08/15/18 at 06:59 Fentanyl Citrate (Fentanyl 2ml Vial) 50 mcg PRN Q5MIN PRN IV MODERATE TO SEVERE PAIN; Start 08/14/18 at 07:00; Stop 08/15/18 at 06:59 Morphine Sulfate (Morphine Sulfate) 1 mg PRN Q10MIN PRN IV SEVERE PAIN; Start 08/14/18 at 07:00; Stop 08/15/18 at 06:59 Ringer's Solution 1,000 ml @ 30 mls/hr Q24H IV ; Start 08/14/18 at 07:00; Stop 08/14/18 at 18:59 Lidocaine HCl (Xylocaine-Mpf 1% 2ml Vial) 2 ml PRN 1X PRN ID PRIOR TO IV START ; Start 08/14/18 at 07:00; Stop 08/15/18 at 06:59 Hydromorphone HCl (Dilaudid) 0.5 mg PRN Q10MIN PRN IV SEV PAIN, Second choice; Start 08/14/18 at 07:00; Stop 08/15/18 at 06:59 Prochlorperazine Edisylate (Compazine) 5 mg PACU PRN PRN IV NAUSEA, MRX1; Start 08/14/18 at 07:00; Stop 08/15/18 at 06:59 Active Scripts Active Nitrostat (Nitroglycerin) 0.4 Mg Tab.subl 0.4 Mg SL PRN Q5MIN PRN 30 Days [Pantoprazole] 40 MG Tablet.dr 40 Mg PO DAILYAC 30 Days Reported Lisinopril 10 Mg Tablet 1 Tab PO DAILY Atorvastatin Calcium 40 Mg Tablet 1 Tab PO DAILY Metformin Hcl 500 Mg Tablet 500 Mg PO BIDWMEALS Allergies Allergies: Coded Allergies: No Known Drug Allergies (Unverified , 08/14/18) ROS Review of System Otherwise negative. Physical Exam General: Alert, Oriented X3, Cooperative, No acute distress Lungs: Clear to auscultation, Normal air movement Heart: S1S2, RRR, no gallops, no murmurs Abdomen: Normal bowel sounds, Soft, No tenderness, No hepatosplenomegaly, No masses Rectal Exam: not examined Extremities: No cyanosis, No edema Skin: No significant lesion Neuro: Normal gait, Normal speech, Strength at 5/5 X4 ext, Normal tone, Sensation intact, Cranial nerves 3-12 NL, Reflexes 2+ Psych/Mental Status: Mental status NL, Mood NL Vitals Vitals See nursing records. VTE Prophylaxis Ordered VTE Prophylaxis Devices: No VTE Pharmacological Prophylaxi: No Assessment/Plan Assessment/Plan IMP: Esophageal adenoCa, post-treatment. Response? PLAN: EGD ALEX TAYLOR MD Aug 14, 2018 12:33
--- NOTE | 2018-08-14 13:01 | PDOC4 ---
PROCEDURE Procedure EGD/biopsies Indication: AdenoCa, esophagus, post-treatment. Meds: per anesthesia. Findings: E--Avascular scar posterior wall 34-35cm. No overtly visible tumor; biopsies taken across from scar at 35cm. G--Normal D--Nodular areas, bulb, benign c/w Sujey's glands. Agustina. well. IMP: AdenoCa, esophagus, no overt residual tumor after treatment. REC: Await biopsies. F/u in 2 weeks. Resume home meds, diet. ALEX TAYLOR MD Aug 14, 2018 13:01
[2018-08-14 13:33] VITALS: BP 132/75
--- NOTE | 2018-08-15 15:06 | PATHOLOGY ---
[facility] Accession Number: [id number] . 01 Material submitted: . DISTAL ESOPHAGEAL BIOPSY . 01 Clinical history: . Hx of esophageal cancer . 02 Diagnosis: Esophageal biopsies, distal esophagus: - Segment of squamous esophageal mucosa with contiguous and separate segments of gastric mucosa showing foveolar hyperplasia and active chronic inflammation, and acute inflammatory exudate consistent with ulcer. (JPM:edwardo; 08/15/2018) QMS/08/15/2018 . 02 Comment: Sections of the distal esophageal biopsy reveal an elongate segment of squamous esophageal mucosa with contiguous and separate segments of gastric mucosa showing foveolar hyperplasia and moderate active chronic inflammation, and acute inflammatory exudate consistent with ulcer. There is no evidence of Lozoya's change, dysplasia, or malignancy. (JPM:edwardo; 08/15/2018) . 02 Electronically signed: . Gama Hudson MD, Pathologist NPI- [id number] . 01 Gross description: . Received in formalin labeled "Miguel A Dutton, distal esophageal BX," are 3 segments of phillips soft tissue measuring 0.9 x 0.5 x 0.2 cm in aggregate dimensions and ranging from 0.3 to 0.9 cm in maximum dimension. The specimen is submitted entirely in cassette A1. (TSD; 08/14/2018) TOB/TOB . 02 Pathologist provided ICD-10: K20.9 . 02 CPT . 186871 Specimen Comment: A courtesy copy of this report has been sent to Specimen Comment: [phone], . Specimen Comment: Report sent to / DR SALAMANCA Performed at: [address], [place], [place] [id number] MD Deyvi Nevarez MD Phone: [phone] Performed at: 02 [facility] [address], [place] [id number] MD Gama Hudson MD Phone: [phone]
== END | disposition home or self-care (01) ==
LOC: SURG 12:00
PROVIDERS: ATTEND Internal Medicine Gastroenterology
DX: K22.8 Other specified diseases of esophagus (principal); K31.89 Other diseases of stomach and duodenum; I10 Essential (primary) hypertension; E78.5 Hyperlipidemia, unspecified; J44.9 Chronic obstructive pulmonary disease, unspecified; E11.9 Type 2 diabetes mellitus without complications; I71.4 Abdominal aortic aneurysm, without rupture; M19.90 Unspecified osteoarthritis, unspecified site; Z87.891 Personal history of nicotine dependence; Z79.899 Other long term (current) drug therapy; Z90.49 Acquired absence of other specified parts of digestive tract; Z98.890 Other specified postprocedural states; Z79.84 Long term (current) use of oral hypoglycemic drugs; Z82.49 Family history of ischemic heart disease and other diseases of the circulatory system
CPT/HCPCS: 43239; 82962; 88305; J2001; J2704

== ENCOUNTER → 2019-02-02 | Outpatient (CLI) | payer MEDICARE ==
[2018-08-14 13:33] VITALS: BP 132/75
[~2019-02-02] MED LIST changes: +HEPARIN PF 500 UNIT/5 ML DISP.SYRIN. IV ONE; -HYDROmorphone 2 MG/ML VIAL IV PRN; +IOHEXOL 240 MG/ML 50ML VIAL. PO ONE; +IOHEXOL 300 MG/ML 100ML VIAL. IV ONE; -IV RINGERS,LACTATED 1000ML 1,000 ML IV SCH; -LIDOCAINE 1% PF 2 ML VIAL. ID PRN; -LIDOCAINE 2% PF 5 ML VIAL. ONE; -MORPHINE SULFATE 2 MG/ML VIAL. IV PRN; -NITR0.4T SL; +NITR0.4T24 SL; -ONDANSETRON PF 4 MG/2 ML VIAL. IV PRN; -PROCHLORPERAZINE 10 MG/2 ML VIAL. IV PRN; -PROPOFOL 20 ML IV ONE; -fentaNYL PF VIAL 100 MCG/2 ML VIAL IV PRN
[2019-02-02 08:54] LABS: CREATININE 1.3 mg/dL (0.7-1.3); GFR 53.5
--- NOTE | 2019-02-02 13:06 | RAD ---
Examination: CT CHEST ABDOMEN W/CONTRAST History: Esophageal and stomach adenocarcinoma. Follow-up. Comparison/Correlation: 04/12/2018 CT chest abdomen pelvis with contrast, Findings: Axial images of the chest and abdomen were obtained without IV contrast. Oral contrast was also administered. Sagittal and coronal reformatted images were provided. Right-sided infusion port is present with associated catheter terminating at the superior cavoatrial junction. Marked coronary artery calcification noted. Minimal left basilar linear atelectasis is present. Left costophrenic sulcus bulla is present. Emphysematous involvement of the lung lewis otherwise also seen. No enlarged thoracic no suspicious pulmonary nodule or mass. Liver, spleen, pancreas, and adrenal glands are normal. The gastroesophageal junction is unremarkable. The stomach is unremarkable with normal distention with contrast. No enlarged upper abdominal lymph nodes. Pulmonary vessels are appropriate. Bilateral renal cysts are present greater in size in the right right renal superior pole cyst which has Hounsfield units of 23 similar in size compared to 04/26/2018. Larger simpler cyst is also evident. Calcified lesion about the right renal interpolar region is unchanged. Lower pole cyst also seen. Very small to characterize left renal lesions are stable likely representing cysts. Distal abdominal aortic bypass graft is noted. Surrounding old hematoma or seroma is present similar to the previous exam. Diverticulosis of the partially visualized colon is evident. Bony structures are unremarkable. Impression: Gastroesophageal junction is unremarkable. No evidence of mass. No evidence of metastases involving the chest or abdomen. PQRS Compliance Statement: One or more of the following individualized dose reduction techniques were utilized for this examination: 1. Automated exposure control 2. Adjustment of the mA and/or kV according to patient size 3. Use of iterative reconstruction technique Electronically signed by: Gonzalez Slade MD (02/02/2019 1:03 PM) [facility]
== END | disposition home or self-care (01) ==
LOC: CT 08:24
PROVIDERS: ATTEND Radiology Radiation Oncology
DX: Z08 Encounter for follow-up examination after completed treatment for malignant neoplasm (principal); K57.30 Diverticulosis of large intestine without perforation or abscess without bleeding; J98.11 Atelectasis; J43.8 Other emphysema; N28.1 Cyst of kidney, acquired
CPT/HCPCS: 36415; 71260; 74160; 82565; 84520; Q9966; Q9967

== ENCOUNTER → 2019-05-07 | Day surgery (SDC) | payer MEDICARE ==
[~2019-05-07] MED LIST changes: -HEPARIN PF 500 UNIT/5 ML DISP.SYRIN. IV ONE; -IOHEXOL 240 MG/ML 50ML VIAL. PO ONE; -IOHEXOL 300 MG/ML 100ML VIAL. IV ONE; +IV RINGERS,LACTATED 1000ML 1,000 ML IV ONE; +LIDOCAINE 2% PF 5 ML VIAL. ONE; +PROPOFOL 20 ML IV ONE
--- NOTE | 2019-05-07 14:38 | PDOC4 ---
PROCEDURE Procedure EGD/biopsies Indication: H/o esophageal cancer, post-treatment. Surveillance. Meds: per anesthesia Findings: E--Mild resistance at 38cm/normal mucosa; can pass. From 39-40cm, roughened mucosa and friable, unclearly recurrent tumor or post-radiation change. Multiple biopsies taken. G--Normal. D--Normal to second portion. Agustina. well. IMP: Friability,mild narrowing in distal esophagus. Unclear post-radiation change vs. recurrent tumor. Has some resistance just above this area...extrinsic? REC: await path. If proven recurrent cancer, may need to consider stenting. If biopsies negative, consider EUS. If ultimately proven benign process, could consider dilating if dysphagia (currently denies). Resume home meds and diet. F/u with me in 2 weeks. ALEX TAYLOR MD May 07, 2019 14:38
[2019-05-07 14:50] VITALS: BP 185/88
--- NOTE | 2019-05-12 10:07 | PATHOLOGY ---
[facility] Accession Number: [id number] . 01 Material submitted: . esophagus - DISTAL ESOPHAGUS BX AT 38CM. Modifiers: distal . 01 Clinical history: . Hx of esophageal cancer . 02 Diagnosis: Esophageal biopsies, distal esophagus at 38 cm: - Focal recurrent esophageal adenocarcinoma, moderately-well differentiated, with associated ulceration and acute inflammation, and segments of gastric and squamous esophageal mucosa showing marked chronic and acute inflammation. . (JPM:mml; 05/11/2019) [facility] 05/11/2019 1639 Local . 02 Comment: Sections of the distal esophageal biopsy at 38 cm focally reveal highly atypical glands which infiltrate an inflamed reactive desmoplastic stroma and are associated with ulceration and acute inflammation. There are also multiple segments of gastric mucosa and a segment of squamous esophageal mucosa showing marked chronic and acute inflammation. The findings are supportive of the diagnosis of recurrent esophageal adenocarcinoma. The case is also examined by Dr. Kolton Stone, who concurs with the diagnosis. The results are reported to Dr. Delarosa on 05/11/2019 at 12:30 PM. . (JPM:mm; 05/11/2019) . 02 Electronically signed: . Gama Hudson MD, Pathologist NPI- [id number] . 01 Gross description: . Received in formalin labeled "Miguel A Dutton, distal esophagus BX at 38 cm," are multiple segments of phillips soft tissue measuring 1.1 x 0.7 x 0.1 cm in aggregate dimensions. The specimen is filtered and submitted entirely in cassette A1. (TSD; 05/08/2019) TOB/TOB 05/08/2019 1652 Local . 02 Pathologist provided ICD-10: C15.9, K20.9, K22.10 . 02 CPT . 071320 Specimen Comment: A courtesy copy of this report has been sent to [phone] Specimen Comment: [id number] Specimen Comment: Report sent to / DR SALAMANCA Specimen Comment: A duplicate report has been generated due to demographic updates. Performed at: [address] [facility], [place] [id number] MD Deyvi Nevarez MD Phone: [phone] Performed at: 02 [facility] [address] [place] [id number] MD Gama Hudson MD Phone: [phone]
--- NOTE | 2019-05-14 09:13 | PDOC1 ---
History and Physical Date of Admission Date of Admission DATE: 05/07/2019 TIME: 13:40 Source Source: Chart review, Patient History of Present Illness History of Present Illness 79 y/o male with history of adenoCa of distal esophagus. Now post- chemo/radiation therapy and surveillance exam requested by oncologist. No complaints at this time. Past Medical History Cardiovascular: HTN, Hyperlipidemia Musculoskeletal: Osteoarthritis Endocrine: Diabetes Past Surgical History Past Surgical History: Appendectomy Family History Family History: Hypertension Social History ALCOHOL: none Drugs: None Current Medications Current Medications Current Medications Ringer's Solution 1,000 ml @ 75 mls/hr 1X ONCE IV Last administered on 05/07/19at 14:03; Start 05/07/19 at 14:15; Stop 05/08/19 at 03:34; Status DC Propofol 20 ml @ As Directed STK-MED ONCE IV ; Start 05/07/19 at 14:03; Stop 05/07/19 at 14:04; Status DC Lidocaine HCl (Lidocaine Pf 2% Vial) 5 ml STK-MED ONCE .ROUTE ; Start 05/07/19 at 14:03; Stop 05/07/19 at 14:04; Status DC Active Scripts Active Nitrostat (Nitroglycerin) 0.4 Mg Tab.subl 0.4 Mg SL PRN Q5MIN PRN 30 Days Reported Protonix (Pantoprazole Sodium) 20 Mg Tablet.dr 20 Mg PO DAILY Lisinopril 10 Mg Tablet 1 Tab PO DAILY Atorvastatin Calcium 40 Mg Tablet 1 Tab PO DAILY Metformin Hcl 500 Mg Tablet 500 Mg PO BIDWMEALS Allergies Allergies: Coded Allergies: No Known Drug Allergies (Unverified , 05/07/19) ROS Review of System Otherwise negative. Physical Exam General: Alert, Oriented X3, Cooperative, No acute distress Lungs: Clear to auscultation Heart: S1S2, RRR, no gallops, no murmurs Abdomen: Normal bowel sounds, Soft, No tenderness, No hepatosplenomegaly, No masses Rectal Exam: not examined Skin: No rashes Neuro: Normal speech, Strength at 5/5 X4 ext, Normal tone, Sensation intact, Cranial nerves 3-12 NL, Reflexes 2+ Psych/Mental Status: Mental status NL, Mood NL Vitals Vitals Vital Signs Date Time Temp Pulse Resp B/P (MAP) Pulse Ox O2 Delivery O2 Flow Rate FiO2 05/07/19 14:50 98.2 60 18 185/88 94 Room Air 98.2 05/07/19 14:35 4 VTE Prophylaxis Ordered VTE Prophylaxis Devices: No VTE Pharmacological Prophylaxi: No (outpatient procedure) Assessment/Plan Assessment/Plan IMP: History of adenoCa, esophagus, post-therapy. Surveillance requested. Plan: EGD ALEX TAYLOR MD May 14, 2019 09:13
== END ==
LOC: ENDOS 13:26
PROVIDERS: ATTEND Internal Medicine Gastroenterology
DX: C15.9 Malignant neoplasm of esophagus, unspecified (principal); K21.9 Gastro-esophageal reflux disease without esophagitis; I10 Essential (primary) hypertension; E78.00 Pure hypercholesterolemia, unspecified; Z85.828 Personal history of other malignant neoplasm of skin; Z79.82 Long term (current) use of aspirin; K22.2 Esophageal obstruction
CPT/HCPCS: 43239; 88305; J2001; J2704

== ENCOUNTER → 2019-05-21 | Outpatient (CLI) | payer MEDICARE ==
[2019-05-07 14:50] VITALS: BP 185/88
[~2019-05-21] MED LIST changes: +IOHEXOL 240 MG/ML 50ML VIAL. PO ONE; +IOHEXOL 300 MG/ML 100ML VIAL. IV ONE; -IV RINGERS,LACTATED 1000ML 1,000 ML IV ONE; -LIDOCAINE 2% PF 5 ML VIAL. ONE; -PROPOFOL 20 ML IV ONE
--- NOTE | 2019-05-21 10:25 | RAD ---
CT CHEST ABDOMEN W/CONTRAST Clinical Indication: Esophageal adenocarcinoma. Renal lesion. COMPARISON: 02/02/2019 TECHNIQUE: Multiple contiguous axial images were obtained throughout the chest and abdomen with the use of IV contrast. Axial images were reformatted into coronal and sagittal planes. 75 mL Omnipaque 350 was administered. One or more of the following dose reduction techniques were utilized: Automated exposure control (AEC), Adjustment of mA and/or kV according to patient size, Use of iterative reconstruction technique such as ASiR, CT scan done according to ALARA and image gently/image wisely. Findings: Right Port-A-Cath. The thyroid is symmetric. There is no axillary, mediastinal, or hilar adenopathy. Calcified mediastinal lymph nodes, consistent with remote granulomatous disease. Atherosclerosis thoracic aorta. Normal cardiac size. Aortic leaflet calcification. Coronary artery atherosclerotic disease. There is no pericardial effusion. The central airways are patent. Calcified pulmonary granulomas. No pulmonary mass or consolidation. Bibasilar subsegmental atelectasis. Paraseptal and centrilobular emphysema. No pleural effusion is observed. There is no pneumothorax. The liver, gallbladder, spleen, pancreas, and adrenal glands are unremarkable. Stable renal cysts. Stable 1 cm right renal exophytic interpolar lesion with peripheral calcification (series 4 image 39). There is no significant mesenteric or retroperitoneal adenopathy identified. There is no evidence of free intraperitoneal fluid or pneumoperitoneum. Colonic diverticulosis. Stable aortobiiliac bypass graft. Degenerative changes of the spine, with moderate to severe spinal canal stenosis at L4-5. No aggressive lytic or blastic osseous lesions. Symmetric gynecomastia. Small fat-containing ventral abdominal wall hernias. IMPRESSION: 1. No evidence of metastatic disease in the chest or abdomen. 2. Continued stability of 1 cm right renal lesion. Electronically signed by: Colt Gottlieb MD (05/21/2019 10:22 AM) [facility]
== END | disposition home or self-care (01) ==
LOC: CT 07:59
PROVIDERS: ATTEND Internal Medicine Hematology & Oncology
DX: C15.9 Malignant neoplasm of esophagus, unspecified (principal); N28.89 Other specified disorders of kidney and ureter; I70.0 Atherosclerosis of aorta; I25.10 Atherosclerotic heart disease of native coronary artery without angina pectoris; J98.11 Atelectasis; J43.2 Centrilobular emphysema; N28.1 Cyst of kidney, acquired; K57.30 Diverticulosis of large intestine without perforation or abscess without bleeding; N62 Hypertrophy of breast; K43.9 Ventral hernia without obstruction or gangrene
CPT/HCPCS: 71260; 74160; Q9966; Q9967

== ENCOUNTER → 2019-09-24 | Day surgery (SDC) | payer MEDICARE ==
[~2019-09-24] MED LIST changes: +HYDROmorphone 2 MG/ML VIAL IV PRN; -IOHEXOL 240 MG/ML 50ML VIAL. PO ONE; -IOHEXOL 300 MG/ML 100ML VIAL. IV ONE; +IV RINGERS,LACTATED 1000ML 1,000 ML IV SCH; -LIDO15SO2 SWSW; +LIDO20SO10 SWSW; +LIDOCAINE 1% PF 2 ML VIAL. ID PRN; +LIDOCAINE 2% PF 5 ML VIAL. ONE; +LISI-334 PO; +MORPHINE SULFATE 2 MG/ML VIAL. IV PRN; +ONDANSETRON PF 4 MG/2 ML VIAL. IV PRN; +PROCHLORPERAZINE 10 MG/2 ML VIAL. IV PRN; +PROPOFOL 10 MG/ML (20ML) VIAL. IV ONE; +fentaNYL PF VIAL 100 MCG/2 ML VIAL IV PRN
--- NOTE | 2019-09-24 13:57 | PDOC1 ---
History and Physical Date of Admission Date of Admission DATE: 09/24/19 TIME: 13:51 Source Source: Chart review, Patient History of Present Illness History of Present Illness 79 y/o male with adenoCa distal esophagus. Treated initially with standard combination therapy with initial good response. Surveillance exam in May with recurrent tumor; has received second-line therapy since July and f/u exam requested re: response. As always, denies dysphagia or other symptoms. Past Medical History Cardiovascular: HTN, Hyperlipidemia Musculoskeletal: Osteoarthritis Endocrine: Diabetes Past Surgical History Past Surgical History: Appendectomy, Other (portaCath insertion) Family History Family History: Hypertension Social History Smoke: Quit ALCOHOL: none Drugs: None Current Medications Current Medications Current Medications Ondansetron HCl (Zofran) 4 mg PRN Q6HRS PRN IV NAUSEA/VOMITING; Start 09/24/19 at 07:00; Stop 09/25/19 at 06:59 Fentanyl Citrate (Fentanyl 2ml Vial) 25 mcg PRN Q5MIN PRN IV MILD PAIN 1-3; Start 09/24/19 at 07:00; Stop 09/25/19 at 06:59 Fentanyl Citrate (Fentanyl 2ml Vial) 50 mcg PRN Q5MIN PRN IV MODERATE TO SEVERE PAIN; Start 09/24/19 at 07:00; Stop 09/25/19 at 06:59 Morphine Sulfate (Morphine Sulfate) 1 mg PRN Q10MIN PRN IV SEVERE PAIN 7-10; Start 09/24/19 at 07:00; Stop 09/25/19 at 06:59 Ringer's Solution 1,000 ml @ 30 mls/hr Q24H IV ; Start 09/24/19 at 07:00; Stop 09/24/19 at 18:59 Lidocaine HCl (Xylocaine-Mpf 1% 2ml Vial) 2 ml PRN 1X PRN ID PRIOR TO IV START; Start 09/24/19 at 07:00; Stop 09/25/19 at 06:59 Hydromorphone HCl (Dilaudid) 0.5 mg PRN Q10MIN PRN IV SEV PAIN, Second choice; Start 09/24/19 at 07:00; Stop 09/25/19 at 06:59 Prochlorperazine Edisylate (Compazine) 5 mg PACU PRN PRN IV NAUSEA, MRX1; Start 09/24/19 at 07:00; Stop 09/25/19 at 06:59 Propofol (Diprivan) 200 mg STK-MED ONCE IV ; Start 09/24/19 at 13:29; Stop 09/24/19 at 13:29; Status DC Lidocaine HCl (Lidocaine Pf 2% Vial) 5 ml STK-MED ONCE .ROUTE ; Start 09/24/19 at 13:29; Stop 09/24/19 at 13:29; Status DC Active Scripts Active Nitrostat (Nitroglycerin) 0.4 Mg Tab.subl 0.4 Mg SL PRN Q5MIN PRN 30 Days Reported Lisinopril 20 Mg Tablet 1 Tab PO BID Protonix (Pantoprazole Sodium) 20 Mg Tablet.dr 20 Mg PO DAILY Atorvastatin Calcium 40 Mg Tablet 1 Tab PO DAILY Metformin Hcl 500 Mg Tablet 500 Mg PO BIDWMEALS Allergies Allergies: Coded Allergies: No Known Drug Allergies (Unverified , 05/07/19) ROS Review of System Otherwise negative. Physical Exam General: Alert, Oriented X3, Cooperative, No acute distress HEENT: PERRLA, EOMI Lungs: Clear to auscultation Heart: RRR, no gallops, no murmurs Abdomen: Normal bowel sounds, Soft, No tenderness, No hepatosplenomegaly, No masses Rectal Exam: not examined Extremities: No cyanosis, No edema Skin: No significant lesion Neuro: Normal speech, Strength at 5/5 X4 ext, Normal tone, Sensation intact, Cranial nerves 3-12 NL, Reflexes 2+ Psych/Mental Status: Mental status NL, Mood NL Vitals Vitals See nursing notes. VTE Prophylaxis Ordered VTE Prophylaxis Devices: No VTE Pharmacological Prophylaxi: No Assessment/Plan Assessment/Plan IMP: AdenoCa, esophagus with recurrence; exam requested to evaluate response to second-line therapy. PLAN: EGD. ALEX TAYLOR MD September 24, 2019 13:56
--- NOTE | 2019-09-24 14:16 | PDOC4 ---
PROCEDURE Procedure EGD/biopsies Indication: AdenoCa, esophagus; surveillance after recurrence and second-line treatment. Meds: per anesthesia Findings: E--Ulcerated 35-38 cm, c/w radiation/chemo effect. No sensation of resistance as in May. At [facility], mucosa suggestive of malignancy, biopsied. G--normal D--Nodular duodenitis, bulb. Second portion normal.' Agustina. well. IMP: Esophageal cancer. No resistance, so maybe some better? Still area of seemingly visible malignancy, biopsied. Nodular duodenitis. REC: Await biopsies. F/u with me by phone 10/09 for biopsy results. Continue current meds, diet, etc. ALEX TAYLOR MD September 24, 2019 14:16
[2019-09-24 14:29] VITALS: BP 138/78
--- NOTE | 2019-09-25 15:07 | PATHOLOGY ---
[facility] Accession Number: [id number] . 01 Material submitted: . esophagus - DISTAL ESOPHAGUS BIOPSY. Modifiers: distal . 01 Clinical history: . Esophageal cancer . 02 Diagnosis: Esophageal biopsies, distal esophagus: - ADENOCARCINOMA, MODERATELY-WELL DIFFERENTIATED, ULCERATED. SEE COMMENT. (JPM:edwardo; 09/25/2019) QMS 09/25/2019 0914 Local . 02 Comment: Sections of the distal esophageal biopsy reveal irregular crowded malignant glands which are associated with an inflamed reactive stroma. The malignant glands are lined by columnar cells having mild to moderately pleomorphic hyperchromatic nuclei. Mitotic figures are readily demonstrated. There is acute inflammatory exudate consistent with ulceration. There is also a small segment of gastric mucosa showing moderate chronic inflammation. The morphologic findings are supportive of the diagnosis of recurrent moderately-well differentiated adenocarcinoma. The case is also examined by Dr. Stone, who concurs with the diagnosis. The results are reported to Dr. Delarosa on 09/25/2019 at 12:00 PM. . (JPM:edwardo; 09/25/2019) . 02 Electronically signed: . Gama Hudson MD, Pathologist NPI- [id number] . 01 Gross description: . The specimen is received in formalin, labeled "Miguel A Dutton, distal esophageal BX" and consists of multiple fragments of pink-phillips tissue measuring 1.4 x 0.2 x 0.2 cm in aggregate are entirely submitted in A1. (AMARA; 09/24/2019) JFQ/JFQ 09/24/2019 1728 Local . 02 Pathologist provided ICD-10: C15.9 . 02 CPT . 570277 Specimen Comment: A courtesy copy of this report has been sent to [phone] Specimen Comment: [id number] Specimen Comment: Report sent to / DR SALAMANCA Performed at: [address] [facility], [place] [id number] MD Deyvi Nevarez MD Phone: [phone] Performed at: 02 [facility] [address] [place], [place] [id number] MD Gama Hudson MD Phone: [phone]
== END ==
LOC: ENDOS 13:12
PROVIDERS: ATTEND Internal Medicine Gastroenterology
DX: C15.9 Malignant neoplasm of esophagus, unspecified (principal); K22.10 Ulcer of esophagus without bleeding; I10 Essential (primary) hypertension; E78.5 Hyperlipidemia, unspecified; E11.9 Type 2 diabetes mellitus without complications; Z87.891 Personal history of nicotine dependence; Z79.84 Long term (current) use of oral hypoglycemic drugs
CPT/HCPCS: 43239; J2704; J3490

== ENCOUNTER → 2019-11-13 | Outpatient (CLI) | payer MEDICARE ==
[2019-09-24 14:29] VITALS: BP 138/78
[~2019-11-13] MED LIST changes: +CONTRAST GIVEN. MC PRN; -ENAL10TA PO; +ENAL10TA11 PO; -HYDROmorphone 2 MG/ML VIAL IV PRN; +IOHEXOL 240 MG/ML 50ML VIAL. PO ONE; +IOHEXOL 300 MG/ML 100ML VIAL. IV ONE; -IV RINGERS,LACTATED 1000ML 1,000 ML IV SCH; -LIDOCAINE 1% PF 2 ML VIAL. ID PRN; -LIDOCAINE 2% PF 5 ML VIAL. ONE; -MORPHINE SULFATE 2 MG/ML VIAL. IV PRN; -ONDANSETRON PF 4 MG/2 ML VIAL. IV PRN; -PROCHLORPERAZINE 10 MG/2 ML VIAL. IV PRN; -PROPOFOL 10 MG/ML (20ML) VIAL. IV ONE; -fentaNYL PF VIAL 100 MCG/2 ML VIAL IV PRN
--- NOTE | 2019-11-13 15:28 | RAD ---
CT CHEST ABD PELVIS W/CONTRAST Indication: Esophageal adenocarcinoma Technique: Postcontrast CT imaging was performed of the chest, abdomen, pelvis, multiplanar reconstruction images submitted. Oral contrast was also given. One or more of the following individualized dose reduction techniques were utilized for this examination: 1. Automated exposure control 2. Adjustment of the mA and/or kV according to patient size 3. Use of iterative reconstruction technique. Comparison: April 12, 2018; February 02, 2019; June 07, 2019 exams CHEST: Findings: No new suspicious pulmonary nodularity is identified. There is some similar density to the right of the distal esophagus such as seen on images 37 through 41 series 2 in greatest dimension about 1.6 cm AP by about 1.5 cm transverse by about 2.3 cm CC, appearance very similar compared with more recent exams although greater than April 12, 2018 exam. There is no new significant lymphadenopathy compared with more recent exams. There is again emphysema. There is again left lower lobe air cyst. There is no new pericardial or pleural fluid, pneumothorax, or infiltrate. There is coronary calcification. Aortic root is ectatic about 4.1 cm. There is scattered plaque of the thoracic aorta. Descending thoracic aortic caliber is on the order of 3 cm. There is right internal jugular port catheter. IMPRESSION: 1. There is again nonspecific density to the right of the distal esophagus similar compared with more recent exams although greater than older 2018 exam. Attention on future follow-up CT or PET CT is advised. No new significant lymphadenopathy or suspicious pulmonary nodularity is identified. 2. There is again coronary calcification and ectatic aortic root. Abdomen pelvis FINDINGS: No new focal abnormality is identified of the liver, spleen, or pancreas. There is no new adrenal nodularity. There is no new significant lymphadenopathy. Gallbladder is present without obvious intraluminal abnormality by CT. There are 4 separate ventral fat-containing abdominal hernias, largest transverse neck about 2.2 cm image 34 series 4. There is again abdominal aortic iliac bypass graft. There is similar area of cystic density associated with the distal [place] abdominal aorta with surrounding calcified plaque, some adjacent nonspecific mild stranding change somewhat greater than older exam. There is at least moderate stenosis of proximal superior mesenteric artery by calcified plaque. Bowel is not significantly dilated. There is no free fluid or free air. There is colonic diverticulosis greatest of the sigmoid colon. Both kidneys enhance without hydronephrosis. There is again exophytic large right renal cyst about 8.3 cm. There is also again 5.7 cm hypodense lesion of the medial superior right kidney with density measurements greater than a simple cyst about 28 Hounsfield units although size similar. There is also a 1.1 cm exophytic partially peripherally calcified lesion of the mid, lateral right kidney unchanged also separate tiny hypodense lesion more inferiorly about 1 cm unchanged. There is 0.8 cm cyst of the inferior right kidney. There is also small cyst of the inferior left kidney about 1.1 cm. There is also small hypodense lesion of the medial superior left kidney about 0.8 cm as seen previously. 0.8 cm exophytic hypodense lesion posteriorly of the mid to superior left kidney is unchanged, density measurements greater than a simple cyst. There is degenerative disc disease greatest L4-5 and L5-S1. There is multilevel lumbar facet degenerative change, minimal grade 1 anterior spondylolisthesis at L4-5 and to lesser degree at L3-4. There is at least moderate spinal stenosis at L4-5. There is some variable lumbar neural foramina compromise. IMPRESSION: 1. There is no new evidence of metastatic disease to the abdomen or pelvis. 2. Renal lesions are unchanged, some which have density characteristics of simple cysts although other foci indeterminate. 3. There are fat-containing ventral abdominal hernias. Electronically signed by: Colt Archibald MD (11/13/2019 3:25 PM) [facility]
== END | disposition home or self-care (01) ==
LOC: CT 09:38
PROVIDERS: ATTEND Family Medicine
DX: Z01.818 Encounter for other preprocedural examination (principal); C15.9 Malignant neoplasm of esophagus, unspecified; K57.30 Diverticulosis of large intestine without perforation or abscess without bleeding; I25.10 Atherosclerotic heart disease of native coronary artery without angina pectoris; J43.8 Other emphysema; J98.4 Other disorders of lung; I70.0 Atherosclerosis of aorta; K45.8 Other specified abdominal hernia without obstruction or gangrene; I77.1 Stricture of artery; N28.1 Cyst of kidney, acquired; N28.89 Other specified disorders of kidney and ureter; M51.37 Other intervertebral disc degeneration, lumbosacral region; M43.16 Spondylolisthesis, lumbar region; M48.061 Spinal stenosis, lumbar region without neurogenic claudication; M47.816 Spondylosis without myelopathy or radiculopathy, lumbar region
CPT/HCPCS: 71260; 74177; Q9966; Q9967